=== PATIENT | female | born 1930 | race African-American/Black ===

== ENCOUNTER 2016-09-22 14:11 | Emergency (ER) | payer OTHER ==
[~2016-09-22 14:11] MED LIST: ACET500T68 PO; AMLO5TAB4 PO; ASPI81TA2 PO; DONE10TA34 PO; IPRA3AMP NEB; LOSA100T2 PO; LOVA40TA2 PO; MEMA28CA PO; MULT-658 PO; QUET25TA5 PO
[2016-09-22 14:26] VITALS: BP 127/60
[2016-09-22 15:55] LABS: BASO % 0 % (0-3); EOS % 1 % (0-3); HEMATOCRIT 35.6 % (36.0-47.0); HEMOGLOBIN 11.1 g/dL (12.0-15.5); LYMPH # 2.4 x10^3/uL (1.0-4.8); LYMPH % 25 % (24-48); MEAN CORPUSCULAR HEMOGLOBIN 26 pg (25-35); MEAN CORPUSCULAR HGB CONC 31 g/dL (31-37); MEAN CORPUSCULAR VOLUME 83 fL (79-100); MONO % 7 % (0-9); NEUT % 67 % (31-73); PLATELET COUNT 353 x10^3/uL (140-400); RED BLOOD COUNT 4.29 x10^6/uL (3.50-5.40); RED CELL DISTRIBUTION WIDTH 16.7 % (11.5-14.5); WHITE BLOOD COUNT 9.5 x10^3/uL (4.0-11.0)
[2016-09-22 16:04] LABS: CALCIUM 10.1 mg/dL (8.5-10.1); CREATININE 1.4 mg/dL (0.6-1.0); POTASSIUM 3.5 mmol/L (3.5-5.1)
[2016-09-22 16:10] LABS: ALBUMIN/GLOBULIN RATIO 0.5 (1.0-1.7); TOTAL BILIRUBIN 0.3 mg/dL (0.2-1.0); TOTAL PROTEIN 8.5 g/dL (6.4-8.2)
--- NOTE | 2016-09-22 16:24 | RAD ---
Exam performed: One view chest. Indication: altered mental status and cough for last 4 days Date of Service: 09/22/2016 5:44 PM Comparison: Single view chest as part of acute abdominal series from 10/17/07. Single AP upright portable view chest findings: Cardiomediastinal silhouette is within limits of normal. Bipolar pacemaker. Prominent interstitial markings are seen in both perihilar regions. No acute infiltrates, effusion or pneumothorax is detected. The bony structures are normal. Impression: Stable one view chest No acute cardiopulmonary process is detected.
[2016-09-22 16:29] LABS: BILIRUBIN,URINE SMALL (NEG); GLUCOSE,URINE NEGATIVE (NEG); NITRITE,URINE POSITIVE (NEG); PH,URINE 5.5; PROTEIN,URINE NEGATIVE (NEG-TRACE); UROBILINOGEN,URINE 0.2 mg/dL (0.2 mg/dL)
[2016-09-22] MEDS ORDERED: IV NORMAL SALINE 500ML BAG 500 ML IV ONE (16:30)
[2016-09-22 16:47] LABS: BACTERIA,URINE MANY /HPF (0-FEW); RBC,URINE 0 /HPF (0-2); SQUAMOUS EPITHELIAL CELL,UR MOD /LPF
[2016-09-22] MEDS ORDERED: LEVOFLOXACIN 500 MG TABLET PO ONE (17:15)
--- NOTE | 2016-09-22 17:32 | EKG ---
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
[2016-09-22] MEDS ORDERED: LEVO500T38 PO (17:34)
--- NOTE | 2016-09-22 17:35 | PHYS DOC ---
Past Medical History Past Medical History: Arthritis, Dementia, High Cholesterol, Hypertension Past Surgical History: Hip Replacement, Hysterectomy, Pacemaker Additional Past Surgical Histo: LEFT HIP Alcohol Use: None Drug Use: None Adult General Chief Complaint Chief Complaint: MULTIPLE COMPLAINTS HPI HPI 86-year-old female from a [facility] with a history of dementia presents with a cough and increased agitation. There is not been a report of any fever chills or sweats. She's had no nausea vomiting or diarrhea. By mouth intake has been adequate. Patient is unable to provide any history secondary to dementia. [] Review of Systems Review of Systems Review of systems is unobtainable secondary to patient's dementia Current Medications Current Medications Current Medications Medications (Trade) Dose Ordered Sig/Yue Start Time Stop Time Status Last Admin Dose Admin Levofloxacin (Levaquin) 500 mg 1X ONCE 09/22/16 17:15 09/22/16 17:16 DC Sodium Chloride (Iv Sodium Chloride 0.9% 500ml Bag) 500 ml @ 0 mls/hr 1X ONCE 09/22/16 16:30 09/22/16 16:31 DC 09/22/16 16:34 500 MLS/HR Allergies Allergies Allergies Coded Allergies Type Severity Reaction Last Updated Verified No Known Drug Allergies 05/19/16 No Physical Exam Physical Exam Constitutional: Frail elderly nontoxic. [] HENT: Normocephalic, atraumatic, bilateral external ears normal, oropharynx moist, no oral exudates, nose normal. [] Eyes: PERRLA, EOMI, conjunctiva normal, no discharge. [] Neck: Normal range of motion, no tenderness, supple, no stridor. [] Cardiovascular:Heart rate regular rhythm, no murmur [] Lungs & Thorax: Bilateral breath sounds clear to auscultation [] Abdomen: Bowel sounds normal, soft, no tenderness, no masses, no pulsatile masses. [] Skin: Warm, dry, no erythema, no rash. [] Back: No tenderness, no CVA tenderness. [] Extremities: No tenderness, no cyanosis, no clubbing, ROM intact, no edema. [] Neurologic: Alert but confused, normal motor function, normal sensory function, no focal deficits noted. [] Psychologic: Depressed affect [] Current Patient Data Vital Signs Vital Signs Date Time Temp Pulse Resp B/P Pulse Ox O2 Delivery O2 Flow Rate FiO2 09/22/16 14:26 97.7 15 127/60 98 Room Air 97.7 Lab Values Laboratory Tests Test 09/22/16 14:26 White Blood Count 9.5x10^3/uL (4.0-11.0) Red Blood Count 4.29x10^6/uL (3.50-5.40) Hemoglobin 11.1g/dL (12.0-15.5) L Hematocrit 35.6% (36.0-47.0) L Mean Corpuscular Volume 83fL (79-100) Mean Corpuscular Hemoglobin 26pg (25-35) Mean Corpuscular Hemoglobin Concent 31g/dL (31-37) Red Cell Distribution Width 16.7% (11.5-14.5) H Platelet Count 353x10^3/uL (140-400) Neutrophils (%) (Auto) 67% (31-73) Lymphocytes (%) (Auto) 25% (24-48) Monocytes (%) (Auto) 7% (0-9) Eosinophils (%) (Auto) 1% (0-3) Basophils (%) (Auto) 0% (0-3) Neutrophils # (Auto) 6.4x10^3uL (1.8-7.7) Lymphocytes # (Auto) 2.4x10^3/uL (1.0-4.8) Monocytes # (Auto) 0.7x10^3/uL (0.0-1.1) Eosinophils # (Auto) 0.1x10^3/uL (0.0-0.7) Basophils # (Auto) 0.0x10^3/uL (0.0-0.2) Urine Collection Type U cath Urine Color Dk yellow Urine Clarity Clear Urine pH 5.5 Urine Specific [place] >=1.030 Urine Protein Negativemg/dL (NEG-TRACE) Urine Glucose (UA) Negativemg/dL (NEG) Urine Ketones (Stick) Negativemg/dL (NEG) Urine Blood Negative (NEG) Urine Nitrite Positive (NEG) Urine Bilirubin Small (NEG) Urine Urobilinogen Dipstick 0.2mg/dL (0.2 mg/dL) Urine Leukocyte Esterase Small (NEG) Urine RBC 0/HPF (0-2) Urine WBC 5-10/HPF (0-4) Urine Squamous Epithelial Cells Mod/LPF Urine Transitional Epithelial Cells Occ/LPF Urine Bacteria Many/HPF (0-FEW) Urine Hyaline Casts Few/HPF Urine Mucus Mod/LPF Sodium Level 149mmol/L (136-145) H Potassium Level 3.5mmol/L (3.5-5.1) Chloride Level 109mmol/L (98-107) H Carbon Dioxide Level 30mmol/L (21-32) Anion Gap 10 (6-14) Blood Urea Nitrogen 31mg/dL (7-20) H Creatinine 1.4mg/dL (0.6-1.0) H Estimated GFR (Cockcroft-Gault) 43.0 BUN/Creatinine Ratio 22 (6-20) H Glucose Level 81mg/dL (70-99) Calcium Level 10.1mg/dL (8.5-10.1) Total Bilirubin 0.3mg/dL (0.2-1.0) Aspartate Amino Transferase (AST) 41U/L (15-37) H Alanine Aminotransferase (ALT) 38U/L (14-59) Alkaline Phosphatase 116U/L (46-116) Troponin I Quantitative < 0.017ng/mL (0.000-0.055) Total Protein 8.5g/dL (6.4-8.2) H Albumin 3.0g/dL (3.4-5.0) L Albumin/Globulin Ratio 0.5 (1.0-1.7) L Lipase 200U/L (73-393) Laboratory Tests 09/22/16 14:26 Laboratory Tests 09/22/16 14:26 EKG EKG [] Radiology/Procedures Radiology/Procedures [] Impressions: PROCEDURE: CHEST AP ONLY Exam performed: One view chest. Indication: altered mental status and cough for last 4 days Date of Service: 09/22/2016 5:44 PM Comparison: Single view chest as part of acute abdominal series from 10/17/07. Single AP upright portable view chest findings: Cardiomediastinal silhouette is within limits of normal. Bipolar pacemaker. Prominent interstitial markings are seen in both perihilar regions. No acute infiltrates, effusion or pneumothorax is detected. The bony structures are normal. Impression: Stable one view chest No acute cardiopulmonary process is detected. Course & Med Decision Making Course & Med Decision Making Pertinent Labs and Imaging studies reviewed. (See chart for details) [ED course: Evaluation reveals a frail 86-year-old female who does not appear to be in any distress. Clinically she appeared somewhat dehydrated she was given IV fluids. She was also given antibiotic for urinary tract infection. I did speak with Dr. Hair who agreed to follow her as an outpatient and agreed with discharge back to the [facility].] Dragon Disclaimer Dragon Disclaimer This electronic medical record was generated, in whole or in part, using a voice recognition dictation system. Departure Departure Impression: Primary Impression: Urinary tract infection Disposition: 01 HOME, SELF-CARE Condition: STABLE Referrals: ISA HAIR MD (PCP) Patient Instructions: Urinary Tract Infection Additional Instructions: Thank you for allowing us to participate in your care today. Followup with your primary care physician in 3 days if your symptoms do not improve. Return to the emergency department you have any new or concerning findings. This should be evaluated by the primary care physician and any necessary consulting services for continued management within a few days after discharge. Return to emergency room if you have any new or concerning symptoms including but not limited to fever, chills, nausea, vomiting, intractable pain, any new rashes, chest pain, shortness of air, uncontrolled bleeding, difficulty breathing, and/or vision loss. You may have been prescribed medication that can change in your level of thinking and ability to operate machinery. These medications include hydrocodone and Ativan. Also, Benadryl has been known to do this as well. Be sure to check with your pharmacist and ask if the medications you've prescribed can affect your level of consciousness. I recommend not operating heavy machinery or driving while on medication such as these. Scripts Levofloxacin (Levaquin)500 Mg Tablet1 Tab PO DAILY urinary tract infection #5 TAB Prov:BRISEIDA BARKER DO 09/22/16 Problem Qualifiers Primary Impression: Urinary tract infection Urinary tract infection type: site unspecified Hematuria presence: without hematuria Qualified Code: N39.0 - Urinary tract infection, site not specified BRISEIDA BARKER DO Sep 22, 2016 17:35
== END 2016-09-22 17:42 | disposition home or self-care (01) ==
LOC: ER 14:11
DX: N39.0 Urinary tract infection, site not specified (principal); M19.90 Unspecified osteoarthritis, unspecified site; F03.90 Unspecified dementia, unspecified severity, without behavioral disturbance, psychotic disturbance, mood disturbance, and anxiety; E78.00 Pure hypercholesterolemia, unspecified; I10 Essential (primary) hypertension; Z96.89 Presence of other specified functional implants
CPT/HCPCS: 36415; 71010; 80053; 81001; 83690; 84484; 85027; 87086; 93005; 96360; 99285; J7040

== ENCOUNTER 2016-10-07 13:04 | Inpatient (IN) | payer OTHER ==
[~2016-10-07] VITALS: Ht 167.6 cm; Wt 63.0 kg
[~2016-10-07 13:04] MED LIST changes: +LEVO500T38 PO
--- NOTE | 2016-10-07 13:18 | PHYS DOC ---
Past Medical History Past Medical History: Arthritis, Dementia, High Cholesterol, Hypertension Past Surgical History: Hip Replacement, Hysterectomy, Pacemaker Additional Past Surgical Histo: LEFT HIP Alcohol Use: None Drug Use: None Adult General Chief Complaint Chief Complaint: TREMORS HPI HPI Patient is a 86 year old female who presents with low blood pressure. According to the paramedics she was sitting next to the aid at her facility and she slumped over and the aid could not feel a pulse. They started CPR for approximately 10 minutes. She woke up in EMS transferred her here. She has dementia and at this time is unable to answer any questions or recognize her daughter. According to her daughter she has had these episodes where she passes out while sitting however she usually regains consciousness quickly and she was informed that she was not regaining consciousness and he could not feel a pulse so they started CPR. Review of Systems Review of Systems Constitutional: Denies fever or chills [] Eyes: Denies change in visual acuity, redness, or eye pain [] HENT: Denies nasal congestion or sore throat [] Respiratory: Denies cough or shortness of breath [] Cardiovascular: No additional information not addressed in HPI [] GI: Denies abdominal pain, nausea, vomiting, bloody stools or diarrhea [] : Denies dysuria or hematuria [] Musculoskeletal: Denies back pain or joint pain [] Integument: Denies rash or skin lesions [] Neurologic: Denies headache, focal weakness or sensory changes [] Endocrine: Denies polyuria or polydipsia [] Allergies Allergies Allergies Coded Allergies Type Severity Reaction Last Updated Verified No Known Drug Allergies 05/19/16 No Physical Exam Physical Exam Constitutional: Well developed, well nourished, no acute distress, non-toxic appearance. [] HENT: Normocephalic, atraumatic, bilateral external ears normal, oropharynx moist, no oral exudates, nose normal. [] Eyes: PERRLA, EOMI, conjunctiva normal, no discharge. [] Neck: Normal range of motion, no tenderness, supple, no stridor. [] Cardiovascular:Heart rate regular rhythm, no murmur [] Lungs & Thorax: Bilateral breath sounds clear to auscultation [] Abdomen: Bowel sounds normal, soft, no tenderness, no masses, no pulsatile masses. [] Skin: Warm, dry, no erythema, no rash. [] Back: No tenderness, no CVA tenderness. [] Extremities: No tenderness, no cyanosis, no clubbing, ROM intact, no edema. [] Neurologic: Alert, normal motor function, normal sensory function, no focal deficits Current Patient Data Vital Signs Vital Signs Date Time Temp Pulse Resp B/P Pulse Ox O2 Delivery O2 Flow Rate FiO2 10/07/16 14:10 74 142/67 95 Room Air 10/07/16 13:13 97. 16 97.0 Lab Values Laboratory Tests Test 10/07/16 13:40 White Blood Count 11.8x10^3/uL (4.0-11.0) H Red Blood Count 4.08x10^6/uL (3.50-5.40) Hemoglobin 10.7g/dL (12.0-15.5) L Hematocrit 33.7% (36.0-47.0) L Mean Corpuscular Volume 83fL (79-100) Mean Corpuscular Hemoglobin 26pg (25-35) Mean Corpuscular Hemoglobin Concent 32g/dL (31-37) Red Cell Distribution Width 16.9% (11.5-14.5) H Platelet Count 364x10^3/uL (140-400) Neutrophils (%) (Auto) 88% (31-73) H Lymphocytes (%) (Auto) 9% (24-48) L Monocytes (%) (Auto) 3% (0-9) Eosinophils (%) (Auto) 0% (0-3) Basophils (%) (Auto) 0% (0-3) Neutrophils # (Auto) 10.4x10^3uL (1.8-7.7) H Lymphocytes # (Auto) 1.0x10^3/uL (1.0-4.8) Monocytes # (Auto) 0.4x10^3/uL (0.0-1.1) Eosinophils # (Auto) 0.0x10^3/uL (0.0-0.7) Basophils # (Auto) 0.0x10^3/uL (0.0-0.2) Platelet Estimate Pending Prothrombin Time 14.4SEC (11.7-14.0) H Prothrombin Time INR 1.2 (0.8-1.1) H Troponin I Quantitative 0.031ng/mL (0.000-0.055) Laboratory Tests 10/07/16 13:40 EKG EKG EKG shows normal sinus rhythm at [address] elevations or T-wave inversions, there is artifact throughout all the leads, QTc 503 ms, normal axis , as interpreted by me. Radiology/Procedures Radiology/Procedures [facility] [address] [place] [address] IMAGING REPORT Signed PATIENT: BENNY RIOS ACCOUNT: [id number] : 1930 LOCATION: ER AGE: 86 SEX: F EXAM STATUS: PRE ER ORD. PHYSICIAN: GEOVANNA SAXENA MD REASON: chest pain PROCEDURE: PORTABLE CHEST 1V Portable chest, 10/07/2016: History: Chest pain Comparison is made to a study from 09/22/2016. 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 The patient positioning is kyphotic. The heart is probably within normal limits in size. There is calcific plaquing of the aorta. The pulmonary vascularity is normal. No pulmonary infiltrates are seen. There is no evidence of pleural fluid. IMPRESSION: No acute cardiopulmonary abnormality is detected. DICTATED and SIGNED BY: ALTON RAMON MD DATE: 10/07/16 1330 CC: GEOVANNA SAXENA MD; ISA SCHERER MD ~ Course & Med Decision Making Course & Med Decision Making Pertinent Labs and Imaging studies reviewed. (See chart for details) Labs are pending at this time. Final disposition to Dr. Hopper. Nisreen Disclaimer Nisreen Disclaimer This electronic medical record was generated, in whole or in part, using a voice recognition dictation system. Departure Departure Referrals: ISA SCHERER MD (PCP) GEOVANNA SAXENA MD Oct 07, 2016 13:18
--- NOTE | 2016-10-07 13:34 | RAD ---
Portable chest, 10/07/2016: History: Chest pain Comparison is made to a study from 09/22/2016. 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 The patient positioning is kyphotic. The heart is probably within normal limits in size. There is calcific plaquing of the aorta. The pulmonary vascularity is normal. No pulmonary infiltrates are seen. There is no evidence of pleural fluid. IMPRESSION: No acute cardiopulmonary abnormality is detected.
[2016-10-07 14:06] LABS: INR 1.2 (0.8-1.1); PROTHROMBIN TIME PATIENT 14.4 SEC (11.7-14.0)
[2016-10-07 14:09] LABS: BASO % 0 % (0-3); EOS % 0 % (0-3); HEMATOCRIT 33.7 % (36.0-47.0); HEMOGLOBIN 10.7 g/dL (12.0-15.5); LYMPH % 9 % (24-48); MEAN CORPUSCULAR HEMOGLOBIN 26 pg (25-35); MEAN CORPUSCULAR HGB CONC 32 g/dL (31-37); MEAN CORPUSCULAR VOLUME 83 fL (79-100); MONO % 3 % (0-9); NEUT % 88 % (31-73); PLATELET COUNT 364 x10^3/uL (140-400); RED BLOOD COUNT 4.08 x10^6/uL (3.50-5.40); RED CELL DISTRIBUTION WIDTH 16.9 % (11.5-14.5); WHITE BLOOD COUNT 11.8 x10^3/uL (4.0-11.0)
--- NOTE | 2016-10-07 14:59 | EKG ---
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
[2016-10-07 15:04] LABS: ALBUMIN 2.9 g/dL (3.4-5.0); ALK PHOS 116 U/L (46-116); ALT (SGPT) 49 U/L (14-59); ANION GAP 10 (6-14); AST (SGOT) 69 U/L (15-37); BLOOD UREA NITROGEN 22 mg/dL (7-20); CALCIUM 9.6 mg/dL (8.5-10.1); CARBON DIOXIDE 28 mmol/L (21-32); CHLORIDE 109 mmol/L (98-107); CREATININE 1.1 mg/dL (0.6-1.0); DIRECT BILIRUBIN < 0.1 mg/dL (0.0-0.2); GFR 56.9; GLUCOSE 112 mg/dL (70-99); MAGNESIUM 2.3 mg/dL (1.8-2.4); POTASSIUM 4.1 mmol/L (3.5-5.1); SODIUM 147 mmol/L (136-145); TOTAL BILIRUBIN 0.2 mg/dL (0.2-1.0); TOTAL PROTEIN 6.9 g/dL (6.4-8.2)
[2016-10-07 15:06] LABS: CKMB INDEX 4.9 % (0-4); CKMB MASS 6.8 ng/mL (0.0-3.6)
[2016-10-07 15:11] LABS: BILIRUBIN,URINE NEGATIVE (NEG); GLUCOSE,URINE NEGATIVE (NEG); NITRITE,URINE NEGATIVE (NEG); PH,URINE 5.5; PROTEIN,URINE NEGATIVE (NEG-TRACE); UROBILINOGEN,URINE 0.2 mg/dL (0.2 mg/dL)
[2016-10-07 15:21] LABS: RBC,URINE OCC /HPF (0-2)
[2016-10-07 15:23] LABS: BACTERIA,URINE 0 /HPF (0-FEW); SQUAMOUS EPITHELIAL CELL,UR FEW /LPF; YEAST,URINE PRESENT /HPF
[2016-10-07 15:50] LABS: PLT ESTIMATE ADEQUATE (ADEQUATE); TOXIC GRANULATION SLIGHT
[2016-10-07 15:51] LABS: TOXIC VACUOLATION SLIGHT
[2016-10-07] MEDS ORDERED: ONDANSETRON PF 4 MG/2 ML VIAL. IV PRN (16:45)
[2016-10-07] MEDS ORDERED: ACETAMINOPHEN 325 MG TABLET. PO PRN ×2 (16:45→18:00)
[2016-10-07] MEDS: IV NORMAL SALINE 1000ML BAG 1,000 ML IV SCH ×2 (16:47→20:00)
[2016-10-07] MEDS ORDERED: CEFTRIAXONE 1GM IVPB FOR OMNI 50 ML IV ONE (17:30)
--- NOTE | 2016-10-07 17:45 | RAD ---
PROCEDURE CT abdomen and pelvis without intravenous contrast. HISTORY Pancreatitis. Pelvic fractures. TECHNIQUE Helical CT of the abdomen and pelvis was performed without intravenous or oral contrast. Exposure: One or more of the following individualized dose reduction techniques were utilized for this examination: 1. Automated exposure control. 2. Adjustment of the mA and/or kV according to patient size. 3. Use of iterative reconstruction technique. COMPARISON None. FINDINGS Evaluation of solid organs is limited by lack of intravenous contrast. Evaluation of enteric structures may be limited by lack of oral contrast. Patient's arms are on her abdomen, creating streak artifact which also mildly limits evaluation. Evaluation of lower pelvis is limited secondary to streak artifact emanating from patient's right total hip arthroplasty. Images of lower chest demonstrate mucous impaction of multiple left lower lobe bronchi. Portions of pacemaker are seen. Liver, spleen, pancreas, and bilateral adrenal glands are unremarkable. Gallbladder is unremarkable. Bilateral kidneys are without evidence of stone. Visualized ureters are without evidence of stone or obstruction. No bowel obstruction or inflammation is seen. Appendix is without evidence of inflammation. Colonic diverticulosis is noted, but no diverticulitis is appreciated. No free air or free fluid is in the abdomen or pelvis. Kaufman catheter is present in urinary bladder. No acute pelvic fractures are appreciated. IMPRESSION 1. No acute abnormality identified in the abdomen or pelvis. 2. Left lower lobe bronchi demonstrate mucous impaction. Electronically signed by: Dorian Dao MD (Oct 07, 2016 17:44:06)
[2016-10-07] MEDS ORDERED: IPRATRPIUM/ALBUTEROL 0.5/2.5MG 3 ML NEBU. NEB PRN (18:00)
[2016-10-07] MEDS ORDERED: MAGNESIUM HYDROXIDE 2,400 MG/30 ML ORAL.SUSP. PO PRN (18:00)
--- NOTE | 2016-10-07 18:12 | PDOC ---
Provider Note Provider Note history and physical dictated # [id number] ISA SCHERER MD Oct 07, 2016 18:12
[2016-10-07 19:00] VITALS: BP 137/76
--- NOTE | 2016-10-07 20:13 | HP ---
ADMIT DATE: 10/07/2016 HISTORY OF PRESENT ILLNESS: The patient is an 86-year-old -[place] female resident of a shelter with history of hypertension, hyperlipidemia, Alzheimer disease who was admitted to [facility] by paramedics to the Emergency Room on 10/07/2016 with a syncopal episode. The patient apparently was sitting and just finished lunch, and she had a syncopal episode and collapsed. Apparently a shelter employee noted she had no pulse and the patient was started on CPR which she had for about 10 minutes and eventually came to. The paramedics came and she was sent to the [facility] Emergency Room. She was hemodynamically stable. She cannot give any type of history at all due to her advanced Alzheimer disease. Electrocardiogram showed no acute change. She was noted to have an elevated serum sodium level of 147, elevated lipase level of 575, and her TSH level was increased at 8.8. Her troponin level was 0.03. CPK was 139; however, CPK-MB was increased at 6.8. Chest x-ray was unremarkable, and she was admitted to the hospital for further evaluation of her syncope. She also had pyuria and received a dose of IV Rocephin in the Emergency Room. I spoke with the family at bedside including her daughter who is a DPOA wishes the patient to be a do not resuscitate. ALLERGIES AND INTOLERANCES: None. MEDICATIONS: Prior to admission include amlodipine 5 mg every day, losartan 100 mg every day, aspirin 81 mg every day, multiple vitamin every day, Aricept 10 mg every day, Namenda XR 28 mg every day, DuoNeb nebulized treatments q.i.d. p.r.n. She is on lovastatin 40 mg everyday. PAST MEDICAL HISTORY: Significant for hypertension, hyperlipidemia, Alzheimer disease. She had an episode of near syncope in March 2016, has chronic kidney disease stage III. She also has Alzheimer disease. She had a right total hip arthroplasty, benign colon polypectomy in 2002, cardiac pacemaker in 2005, right axillary cyst excised in 2008, had a total abdominal hysterectomy and bilateral salpingo-oophorectomy. She has osteoarthritis and diverticulosis. SOCIAL HISTORY: She resides in a shelter. Does not drink alcohol nor does she smoke cigarettes. FAMILY HISTORY: Not contributory. REVIEW OF SYSTEMS: Unobtainable due to her Alzheimer's disease. PHYSICAL EXAMINATION: VITAL SIGNS: Temperature is 97 degrees, apical pulse is 74 and regular, blood pressure 142/67, oxygen saturation 95% on room air. HEENT: Eyes: Gaze is conjugate. Mouth is symmetrical. NECK: No cervical lymphadenopathy or thyroid enlargement. HEART: Reveals an S1, S2. There is no S3 or murmur. LUNGS: Few scattered rhonchi. ABDOMEN: Anteriorly abdomen is soft, nontender, not distended. There is no hepatosplenomegaly or masses. GENITOURINARY: She had a Kaufman catheter with yellow urine. LOWER EXTREMITIES: Without edema. SKIN: No rashes. NEUROLOGIC: She says yes to all questions answered, there was no facial asymmetry. She is able to move her arms. SKIN: No rashes. LABORATORY DATA: Sodium 147, potassium 4.1, chloride 109, total CO2 28, BUN 22, creatinine 1.1, blood sugar 112. Liver function tests normal. The TSH levels increased to 8.8, albumin 2.9, lipase was 575. CPK was 139. Troponin level was 0.031. INR was 1.2. White count 11.8, hemoglobin 10.7, platelet count 369,000, 82 polys, and 1 band on the white cell differential. Urinalysis showed 11-20 white cells and occasional red blood cell. Electrocardiogram showed normal sinus rhythm with baseline artifact, but no acute change. She did have a chest x-ray done which showed no acute abnormality. Pulmonary vascularity was normal. She does have a pacemaker noted with two leads extending into the right heart. In addition, she just had a CAT scan of the abdomen and pelvis without contrast and there was no acute abnormality. Left lower lobe bronchus demonstrated mucus impaction. She had a right total hip arthroplasty that was seen, portions of her pacemaker was seen, ureters were unremarkable. Appendix was without inflammation. She had colonic diverticulosis and gallbladder was unremarkable. She was noted to have mucus impaction and multiple left lower lobe bronchi. There is no mention of acute pancreatitis on the CAT scan. IMPRESSION: 1. Syncopal episode. 2. Hypernatremia. 3. Pyuria. 4. Mucus impaction of the left lower lobe bronchi. 5. Hypertension. 6. Hyperlipidemia. 7. Alzheimer disease. 8. Hyperlipidemia. 9. Chronic kidney disease stage III. 10. Elevated lipase. PLAN: At this time put on a clear liquid diet and start her on some IV hypotonic fluids. We will continue with IV Rocephin that she received in the Emergency Room, wait for the urine culture results. Consult Dr. Hines for cardiology and obtain an echocardiogram. SCDs for Deep vein thrombosis prophylaxis. Continue with her amlodipine and losartan for the hypertension, but hold if systolic blood pressure is less than 110. Instead of lovastatin we will order atorvastatin, which is on formulary for hyperlipidemia. Continue the Namenda and Aricept for her Alzheimer's disease. Wait for the urine culture results. Repeat a CBC and BMP tomorrow, and put her on a clear liquid diet. Repeat amylase and lipase also tomorrow and if that improves, we can advance her diet. She is a do not resuscitate and this was discussed with the patient's daughter who is a DPOA at bedside. ISA SCHERER MD DR: ORVILLE/jason JOB#: [id number] / [id number]
[2016-10-07] MEDS: ATORVASTATIN CALCIUM 10 MG TABLET. PO SCH (21:48)
[2016-10-07] MEDS: MEMANTINE 10 MG TABLET. PO SCH (21:49)
[2016-10-07] MEDS: IV DEXTROSE 5% 1,000 ML IV SCH (21:56)
[2016-10-07 23:00] VITALS: BP 135/68
[2016-10-08] VITALS (7 sets, daily range): BP systolic 75–152; BP diastolic 36–86
--- NOTE | 2016-10-08 04:44 | ACF ---
Admission Forms Criteria SYNCOPE Clinical Indications for Admission to Inpatient Care ( Place 'X' for any and all applicable criteria): Admission is indicated for syncope and ANY ONE of the following (1)(2)(3)(4)(5) (6)(7) : [X]I. Inpatient admission required rather than observation care (Also use Syncope: Observation Care Criteria as appropriate) because of ANY ONE of the following: [ ]a) Hemodynamic instability that is severe or persistent [ ]b) Cardiac arrhythmias of immediate concern identified or strongly suspected (eg, needs electrophysiologic study) [X]c) Acute coronary syndrome identified (Also use Myocardial Infarction or Angina Criteria form ) [ ]d) Structural cardiac disorder (eg, aortic stenosis) suspected as cause that requires immediate correction [ ]e) Respiratory symptoms (eg, dyspnea, tachypnea) that are severe or persistent [ ]f) Neurologic signs or symptoms that are severe or persistent ( eg, stroke, seizures, altered mental status) [ ]g) Severe electrolyte abnormalities requiring inpatient care [ ]h) Supplemental oxygen or respiratory treatment for over 24 hrs that are performable only in acute inpatient setting [ ]i) IV fluid to replace significant ongoing (eg, for over 24 hrs ) losses (>3 L/m2 per day) [ ]j) Continuous intravenous infusion of anticoagulation, platelet inhibitor, vasoactive, or antiarrhythmic medication(15)(16) [ ]k) Pulmonary artery catheter monitoring [ ]l) Temporary pacemaker placement(17) [ ]m) Emergent cardioversion(18) [ ]n) Other conditions, treatment or monitoring requiring inpatient admission [ ]II. Suspicion of imminently dangerous cause (eg, rare causes like pericardial tamponade, pulmonary embolism) [ ]III. Syncope causing severe injury requiring hospitalization Extended stay beyond goal length of stay may be needed for(28) [ ]a) Dangerous arrhythmia(15)(23)(27)(29) [ ]b) Myocardial ischemia [ ]c) Seizure disorder [ ]d) Syncope-related injuries The original [employer] content created by [employer] has been revised. The portions of the content which have been revised are identified through the use of italic text or in bold, and [employer] has neither reviewed nor approved the modified material. All other unmodified content is copyright [employer]. Please see references footnoted in the original [facility] edition 2016 Admission Criteria Met?: Yes SALVATORE GUILLERMO Oct 08, 2016 04:44
[2016-10-08 04:52] LABS: BASO % 0 % (0-3); EOS % 0 % (0-3); HEMATOCRIT 33.9 % (36.0-47.0); HEMOGLOBIN 10.6 g/dL (12.0-15.5); LYMPH # 0.7 x10^3/uL (1.0-4.8); LYMPH % 7 % (24-48); MEAN CORPUSCULAR HEMOGLOBIN 26 pg (25-35); MEAN CORPUSCULAR HGB CONC 31 g/dL (31-37); MEAN CORPUSCULAR VOLUME 82 fL (79-100); MONO % 5 % (0-9); NEUT % 88 % (31-73); PLATELET COUNT 350 x10^3/uL (140-400); RED BLOOD COUNT 4.15 x10^6/uL (3.50-5.40); RED CELL DISTRIBUTION WIDTH 17.1 % (11.5-14.5); WHITE BLOOD COUNT 11.1 x10^3/uL (4.0-11.0)
[2016-10-08 05:04] LABS: CALCIUM 9.7 mg/dL (8.5-10.1); GFR 63.5; POTASSIUM 4.3 mmol/L (3.5-5.1)
[2016-10-08 05:05] LABS: CHOLESTEROL/HDL RATIO 1.9
[2016-10-08] MEDS: LEVOTHYROXINE 75 MCG TABLET PO SCH (07:00)
[2016-10-08] MEDS: IV NORMAL SALINE 1000ML BAG 1,000 ML IV SCH (08:32)
--- NOTE | 2016-10-08 08:36 | RAD ---
CT of the chest without contrast, 10/07/2016: History: Mucous plugging Noncontrast scans were obtained as requested. There is calcific plaquing of the thoracic aorta without evidence of aneurysm. Transvenous pacing leads extend into the heart. No mediastinal adenopathy is evident. The upper and mid esophagus are mildly distended with fluid and gas. The left lower lobe bronchus is largely opacified. Multiple left lower lobe bronchi appear to be mildly dilated, thick-walled and poorly aerated. There are minimal reticulonodular and groundglass opacities in the left lower lobe posteriorly. The left upper lobe and right lung show no significant infiltrate or mass. There is mild pleural thickening along the inferior aspect of the right oblique fissure. No significant pleural fluid is evident. There is a mild thoracic scoliosis with moderate scattered degenerative changes in the spine. IMPRESSION: 1. Abnormal material in the left lower lobe bronchus probably due to inflammatory debris, although a neoplastic etiology cannot be excluded. There is associated bronchiectasis and apparent mucus plugging in the left lower lobe. Chronic infection or allergic aspergillosis are possibilities. 2. 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 PQRS Compliance Statement: One or more of the following individualized dose reduction techniques were utilized for this examination: 1. Automated exposure control 2. Adjustment of the mA and/or kV according to patient size 3. Use of iterative reconstruction technique
[2016-10-08] MEDS: MEMANTINE 10 MG TABLET. PO SCH ×2 (09:00→21:00)
[2016-10-08] MEDS: LOSARTAN POTASSIUM 50 MG TABLET. PO SCH (09:00)
[2016-10-08] MEDS ORDERED: AMLODIPINE BESYLATE 5 MG TABLET PO SCH (09:00)
[2016-10-08] MEDS: ASPIRIN 81 MG TAB.CHEW PO SCH (09:00)
[2016-10-08] MEDS: MULTIVITAMIN with MINERAL TABLET. PO SCH (09:00)
[2016-10-08] MEDS: DONEPEZIL HCL 10 MG TABLET. PO SCH (09:00)
--- NOTE | 2016-10-08 11:10 | PDOC ---
PULMONARY PROGRESS NOTES Vitals Vital Signs Date Time Temp Pulse Resp B/P Pulse Ox O2 Delivery O2 Flow Rate FiO2 10/08/16 08:50 98.2 68 22 152/47 95 Nasal Cannula 2.0 98.2 Labs Laboratory Tests Test 10/07/16 13:40 10/07/16 14:55 10/07/16 19:25 10/07/16 22:35 White Blood Count 11.8x10^3/uL (4.0-11.0) Red Blood Count 4.08x10^6/uL (3.50-5.40) Hemoglobin 10.7g/dL (12.0-15.5) Hematocrit 33.7% (36.0-47.0) Mean Corpuscular Volume 83fL (79-100) Mean Corpuscular Hemoglobin 26pg (25-35) Mean Corpuscular Hemoglobin Concent 32g/dL (31-37) Red Cell Distribution Width 16.9% (11.5-14.5) Platelet Count 364x10^3/uL (140-400) Neutrophils (%) (Auto) 88% (31-73) Lymphocytes (%) (Auto) 9% (24-48) Monocytes (%) (Auto) 3% (0-9) Eosinophils (%) (Auto) 0% (0-3) Basophils (%) (Auto) 0% (0-3) Neutrophils # (Auto) 10.4x10^3uL (1.8-7.7) Lymphocytes # (Auto) 1.0x10^3/uL (1.0-4.8) Monocytes # (Auto) 0.4x10^3/uL (0.0-1.1) Eosinophils # (Auto) 0.0x10^3/uL (0.0-0.7) Basophils # (Auto) 0.0x10^3/uL (0.0-0.2) Segmented Neutrophils % 82% (35-66) Band Neutrophils % 1% (0-9) Lymphocytes % 13% (24-48) Monocytes % 4% (0-10) Toxic Granulation Slight Toxic Vacuolation Slight Platelet Estimate Adequate (ADEQUATE) Prothrombin Time 14.4SEC (11.7-14.0) Prothromb Time International Ratio 1.2 (0.8-1.1) Sodium Level 147mmol/L (136-145) Potassium Level 4.1mmol/L (3.5-5.1) Chloride Level 109mmol/L (98-107) Carbon Dioxide Level 28mmol/L (21-32) Anion Gap 10 (6-14) Blood Urea Nitrogen 22mg/dL (7-20) Creatinine 1.1mg/dL (0.6-1.0) Estimated GFR (Cockcroft-Gault) 56.9 Glucose Level 112mg/dL (70-99) Calcium Level 9.6mg/dL (8.5-10.1) Magnesium Level 2.3mg/dL (1.8-2.4) Total Bilirubin 0.2mg/dL (0.2-1.0) Direct Bilirubin < 0.1mg/dL (0.0-0.2) Aspartate Amino Transf (AST/SGOT) 69U/L (15-37) Alanine Aminotransferase (ALT/SGPT) 49U/L (14-59) Alkaline Phosphatase 116U/L (46-116) Creatine Kinase 139U/L (26-192) Creatine Kinase MB (Mass) 6.8ng/mL (0.0-3.6) Creatine Kinase MB Relative Index 4.9% (0-4) Troponin I Quantitative 0.031ng/mL (0.000-0.055) 0.035ng/mL (0.000-0.055) NR-Cws-K-Type Natriuretic Peptide 52pg/mL (0-449) Total Protein 6.9g/dL (6.4-8.2) Albumin 2.9g/dL (3.4-5.0) Lipase 575U/L (73-393) Thyroid Stimulating Hormone (TSH) 8.885uIU/mL (0.358-3.74) Urine Collection Type U cath Urine Color Yellow Urine Clarity Clear Urine pH 5.5 Urine Specific [place] 1.015 Urine Protein Negativemg/dL (NEG-TRACE) Urine Glucose (UA) Negativemg/dL (NEG) Urine Ketones (Stick) Negativemg/dL (NEG) Urine Blood Small (NEG) Urine Nitrite Negative (NEG) Urine Bilirubin Negative (NEG) Urine Urobilinogen Dipstick 0.2mg/dL (0.2 mg/dL) Urine Leukocyte Esterase Large (NEG) Urine RBC Occ/HPF (0-2) Urine WBC 11-20/HPF (0-4) Urine Squamous Epithelial Cells Few/LPF Urine Transitional Epithelial Cells Occ/LPF Urine Bacteria 0/HPF (0-FEW) Urine Hyaline Casts Occasional/HPF Urine Mucus Mod/LPF Urine Yeast Present/HPF D-Dimer (Karen) 0.46ug/mlFEU (0.00-0.50) Test 10/08/16 04:30 10/08/16 05:51 White Blood Count 11.1x10^3/uL (4.0-11.0) Red Blood Count 4.15x10^6/uL (3.50-5.40) Hemoglobin 10.6g/dL (12.0-15.5) Hematocrit 33.9% (36.0-47.0) Mean Corpuscular Volume 82fL (79-100) Mean Corpuscular Hemoglobin 26pg (25-35) Mean Corpuscular Hemoglobin Concent 31g/dL (31-37) Red Cell Distribution Width 17.1% (11.5-14.5) Platelet Count 350x10^3/uL (140-400) Neutrophils (%) (Auto) 88% (31-73) Lymphocytes (%) (Auto) 7% (24-48) Monocytes (%) (Auto) 5% (0-9) Eosinophils (%) (Auto) 0% (0-3) Basophils (%) (Auto) 0% (0-3) Neutrophils # (Auto) 9.7x10^3uL (1.8-7.7) Lymphocytes # (Auto) 0.7x10^3/uL (1.0-4.8) Monocytes # (Auto) 0.6x10^3/uL (0.0-1.1) Eosinophils # (Auto) 0.0x10^3/uL (0.0-0.7) Basophils # (Auto) 0.0x10^3/uL (0.0-0.2) Sodium Level 149mmol/L (136-145) Potassium Level 4.3mmol/L (3.5-5.1) Chloride Level 111mmol/L (98-107) Carbon Dioxide Level 26mmol/L (21-32) Anion Gap 12 (6-14) Blood Urea Nitrogen 21mg/dL (7-20) Creatinine 1.0mg/dL (0.6-1.0) Estimated GFR (Cockcroft-Gault) 63.5 Glucose Level 68mg/dL (70-99) Calcium Level 9.7mg/dL (8.5-10.1) Troponin I Quantitative 0.028ng/mL (0.000-0.055) Triglycerides Level 54mg/dL (0-150) Cholesterol Level 158mg/dL (0-200) LDL Cholesterol, Calculated 64mg/dL (0-100) VLDL Cholesterol, Calculated 11mg/dL (0-40) HDL Cholesterol 83mg/dL (40-60) Cholesterol/HDL Ratio 1.9 Amylase Level 111U/L (25-115) Lipase 675U/L (73-393) Glucose (Fingerstick) 70mg/dL (70-99) Laboratory Tests Test 10/07/16 13:40 10/07/16 14:55 10/07/16 19:25 10/07/16 22:35 White Blood Count 11.8x10^3/uL (4.0-11.0) Red Blood Count 4.08x10^6/uL (3.50-5.40) Hemoglobin 10.7g/dL (12.0-15.5) Hematocrit 33.7% (36.0-47.0) Mean Corpuscular Volume 83fL (79-100) Mean Corpuscular Hemoglobin 26pg (25-35) Mean Corpuscular Hemoglobin Concent 32g/dL (31-37) Red Cell Distribution Width 16.9% (11.5-14.5) Platelet Count 364x10^3/uL (140-400) Neutrophils (%) (Auto) 88% (31-73) Lymphocytes (%) (Auto) 9% (24-48) Monocytes (%) (Auto) 3% (0-9) Eosinophils (%) (Auto) 0% (0-3) Basophils (%) (Auto) 0% (0-3) Neutrophils # (Auto) 10.4x10^3uL (1.8-7.7) Lymphocytes # (Auto) 1.0x10^3/uL (1.0-4.8) Monocytes # (Auto) 0.4x10^3/uL (0.0-1.1) Eosinophils # (Auto) 0.0x10^3/uL (0.0-0.7) Basophils # (Auto) 0.0x10^3/uL (0.0-0.2) Segmented Neutrophils % 82% (35-66) Band Neutrophils % 1% (0-9) Lymphocytes % 13% (24-48) Monocytes % 4% (0-10) Toxic Granulation Slight Toxic Vacuolation Slight Platelet Estimate Adequate (ADEQUATE) Prothrombin Time 14.4SEC (11.7-14.0) Prothromb Time International Ratio 1.2 (0.8-1.1) Sodium Level 147mmol/L (136-145) Potassium Level 4.1mmol/L (3.5-5.1) Chloride Level 109mmol/L (98-107) Carbon Dioxide Level 28mmol/L (21-32) Anion Gap 10 (6-14) Blood Urea Nitrogen 22mg/dL (7-20) Creatinine 1.1mg/dL (0.6-1.0) Estimated GFR (Cockcroft-Gault) 56.9 Glucose Level 112mg/dL (70-99) Calcium Level 9.6mg/dL (8.5-10.1) Magnesium Level 2.3mg/dL (1.8-2.4) Total Bilirubin 0.2mg/dL (0.2-1.0) Direct Bilirubin < 0.1mg/dL (0.0-0.2) Aspartate Amino Transf (AST/SGOT) 69U/L (15-37) Alanine Aminotransferase (ALT/SGPT) 49U/L (14-59) Alkaline Phosphatase 116U/L (46-116) Creatine Kinase 139U/L (26-192) Creatine Kinase MB (Mass) 6.8ng/mL (0.0-3.6) Creatine Kinase MB Relative Index 4.9% (0-4) Troponin I Quantitative 0.031ng/mL (0.000-0.055) 0.035ng/mL (0.000-0.055) OM-Wvk-D-Type Natriuretic Peptide 52pg/mL (0-449) Total Protein 6.9g/dL (6.4-8.2) Albumin 2.9g/dL (3.4-5.0) Lipase 575U/L (73-393) Thyroid Stimulating Hormone (TSH) 8.885uIU/mL (0.358-3.74) Urine Collection Type U cath Urine Color Yellow Urine Clarity Clear Urine pH 5.5 Urine Specific [place] 1.015 Urine Protein Negativemg/dL (NEG-TRACE) Urine Glucose (UA) Negativemg/dL (NEG) Urine Ketones (Stick) Negativemg/dL (NEG) Urine Blood Small (NEG) Urine Nitrite Negative (NEG) Urine Bilirubin Negative (NEG) Urine Urobilinogen Dipstick 0.2mg/dL (0.2 mg/dL) Urine Leukocyte Esterase Large (NEG) Urine RBC Occ/HPF (0-2) Urine WBC 11-20/HPF (0-4) Urine Squamous Epithelial Cells Few/LPF Urine Transitional Epithelial Cells Occ/LPF Urine Bacteria 0/HPF (0-FEW) Urine Hyaline Casts Occasional/HPF Urine Mucus Mod/LPF Urine Yeast Present/HPF D-Dimer (Karen) 0.46ug/mlFEU (0.00-0.50) Test 10/08/16 04:30 10/08/16 05:51 White Blood Count 11.1x10^3/uL (4.0-11.0) Red Blood Count 4.15x10^6/uL (3.50-5.40) Hemoglobin 10.6g/dL (12.0-15.5) Hematocrit 33.9% (36.0-47.0) Mean Corpuscular Volume 82fL (79-100) Mean Corpuscular Hemoglobin 26pg (25-35) Mean Corpuscular Hemoglobin Concent 31g/dL (31-37) Red Cell Distribution Width 17.1% (11.5-14.5) Platelet Count 350x10^3/uL (140-400) Neutrophils (%) (Auto) 88% (31-73) Lymphocytes (%) (Auto) 7% (24-48) Monocytes (%) (Auto) 5% (0-9) Eosinophils (%) (Auto) 0% (0-3) Basophils (%) (Auto) 0% (0-3) Neutrophils # (Auto) 9.7x10^3uL (1.8-7.7) Lymphocytes # (Auto) 0.7x10^3/uL (1.0-4.8) Monocytes # (Auto) 0.6x10^3/uL (0.0-1.1) Eosinophils # (Auto) 0.0x10^3/uL (0.0-0.7) Basophils # (Auto) 0.0x10^3/uL (0.0-0.2) Sodium Level 149mmol/L (136-145) Potassium Level 4.3mmol/L (3.5-5.1) Chloride Level 111mmol/L (98-107) Carbon Dioxide Level 26mmol/L (21-32) Anion Gap 12 (6-14) Blood Urea Nitrogen 21mg/dL (7-20) Creatinine 1.0mg/dL (0.6-1.0) Estimated GFR (Cockcroft-Gault) 63.5 Glucose Level 68mg/dL (70-99) Calcium Level 9.7mg/dL (8.5-10.1) Troponin I Quantitative 0.028ng/mL (0.000-0.055) Triglycerides Level 54mg/dL (0-150) Cholesterol Level 158mg/dL (0-200) LDL Cholesterol, Calculated 64mg/dL (0-100) VLDL Cholesterol, Calculated 11mg/dL (0-40) HDL Cholesterol 83mg/dL (40-60) Cholesterol/HDL Ratio 1.9 Amylase Level 111U/L (25-115) Lipase 675U/L (73-393) Glucose (Fingerstick) 70mg/dL (70-99) Medications Active Scripts Medications Dose Route/Sig Days Date Category Levaquin (Levofloxacin) 500 Mg Tablet 1 Tab PO DAILY 09/22/16 Rx Aricept (Donepezil Hcl) 10 Mg Tablet 1 Tab PO QHS 05/19/16 Reported Cozaar (Losartan Potassium) 100 Mg Tablet 100 Mg PO DAILY 05/19/16 Reported Namenda Xr (Memantine Hcl) 28 Mg Cap.spr.24 28 Mg PO DAILY 05/19/16 Reported Norvasc (Amlodipine Besylate) 5 Mg Tablet 1 Tab PO DAILY 05/19/16 Reported Lovastatin 40 Mg Tablet 1 Tab PO DAILY 05/19/16 Reported Acetaminophen 500 Mg Tablet 1 Tab PO QID 05/19/16 Reported Duoneb 0.5-3(2.5) Mg/3 Ml (Albuterol/Ipratropium) 3 Ml Ampul.neb 3 Ml NEB QID 05/19/16 Reported Seroquel (Quetiapine Fumarate) 25 Mg Tablet 1 Tab PO QHS PRN 05/19/16 Reported Aspirin 81 Mg Tab.chew 1 Tab PO DAILY 05/19/16 Reported Centrum Silver Tablet (Multivits-Min/Fa/Lycopene/Lut) 1 Each Tablet 1 Each PO DAILY 05/19/16 Reported Impression . #[id number] full note dictated suspect Aspiration Pneumonia, mucus plugging, see my report Plan . GINA NETTLES MD Oct 08, 2016 11:10
--- NOTE | 2016-10-08 12:05 | PDOC ---
Provider Note Provider Note Patient seen and consult dictated. Several episodes of near syncope always when seated for prolonged periods of time. No Orthostasis was noted here but the blood pressure was checked probably within 2 minutes. Pacemaker was interrogated. She has had several episodes of paroxysmal atrial fibrillation/tachycardia Her highest rate has been 160 bpm. The longest duration was 7 minutes. Last episode was september. No arrhythmia was noted yesterday. Echocardiogram has not yet been done. Will discuss with Dr. Hair after seeing the echo. Thank you Dr. Hair for asking me to see her. LINNEA HUNT MD Oct 08, 2016 12:05
[2016-10-08] MEDS ORDERED: ALBUTEROL SULFATE 2.5 MG/3 ML NEBU. NEB PRN (13:15)
[2016-10-08] MEDS: VANCOMYCIN PER PHARMACY MC PRN (13:20)
--- NOTE | 2016-10-08 13:22 | PDOC ---
PROGRESS NOTES Subjective Subjective drowsy but says her name. discussed with family. cough with yellow sputum ct chest with LLL bronchial opacified. afebrile. not eating. blood sugar 80 lab reviewed. Objective Objective Vital Signs Date Time Temp Pulse Resp B/P Pulse Ox O2 Delivery O2 Flow Rate FiO2 10/08/16 11:00 97.5 94 14 119/54 97 Room Air 97.5 10/08/16 08:50 2.0 Intake and Output 10/08/16 07:00 Intake Total 50 ml Output Total 200 ml Balance -150 ml Intake IV Total 50 ml Output Urine Total 200 ml # Voids 1 Physical Exam Abdomen: Soft, No tenderness Heart: Regular rate, Normal S1, Normal S2 Extremities: No edema, Other (no pedal pulses) General: Alert HEENT: Atraumatic Lungs: Other ( breath sounds anteriorly) Neuro: Other (drowsy) Skin: No rashes, Other (left lateral ankle ulcer tender with scab) Assessment Assessment Problems Medical Problems:1. Syncopal episode. 2. Hypernatremia. 3. Pyuria. 4. opacification of the left lower lobe bronchi.possible pneumonia 6. Hyperlipidemia. 7. Alzheimer disease. 8. Hyperlipidemia. 9. Chronic kidney disease stage III. 10. Elevated lipase.amylase normal. PAD left ankle ulcer metabolic encephalopathy mild protein calorie malnutrition subclinical hypothyroidism (1) Syncope Status: Acute Plan Plan of Care consult ID consult wound care team consult GI arterial doppler legs ct head without contrast sputum culture duoneb nebulizer rx start iv vancomycin and zosyn d/c rocephin increase iv D5W start levothyroxine Comment Review of Relevant I have reviewed the following items kamar (where applicable) has been applied. Labs Laboratory Tests Test 10/07/16 13:40 10/07/16 14:55 10/07/16 19:25 10/07/16 22:35 White Blood Count 11.8x10^3/uL (4.0-11.0) Red Blood Count 4.08x10^6/uL (3.50-5.40) Hemoglobin 10.7g/dL (12.0-15.5) Hematocrit 33.7% (36.0-47.0) Mean Corpuscular Volume 83fL (79-100) Mean Corpuscular Hemoglobin 26pg (25-35) Mean Corpuscular Hemoglobin Concent 32g/dL (31-37) Red Cell Distribution Width 16.9% (11.5-14.5) Platelet Count 364x10^3/uL (140-400) Neutrophils (%) (Auto) 88% (31-73) Lymphocytes (%) (Auto) 9% (24-48) Monocytes (%) (Auto) 3% (0-9) Eosinophils (%) (Auto) 0% (0-3) Basophils (%) (Auto) 0% (0-3) Neutrophils # (Auto) 10.4x10^3uL (1.8-7.7) Lymphocytes # (Auto) 1.0x10^3/uL (1.0-4.8) Monocytes # (Auto) 0.4x10^3/uL (0.0-1.1) Eosinophils # (Auto) 0.0x10^3/uL (0.0-0.7) Basophils # (Auto) 0.0x10^3/uL (0.0-0.2) Segmented Neutrophils % 82% (35-66) Band Neutrophils % 1% (0-9) Lymphocytes % 13% (24-48) Monocytes % 4% (0-10) Toxic Granulation Slight Toxic Vacuolation Slight Platelet Estimate Adequate (ADEQUATE) Prothrombin Time 14.4SEC (11.7-14.0) Prothromb Time International Ratio 1.2 (0.8-1.1) Sodium Level 147mmol/L (136-145) Potassium Level 4.1mmol/L (3.5-5.1) Chloride Level 109mmol/L (98-107) Carbon Dioxide Level 28mmol/L (21-32) Anion Gap 10 (6-14) Blood Urea Nitrogen 22mg/dL (7-20) Creatinine 1.1mg/dL (0.6-1.0) Estimated GFR (Cockcroft-Gault) 56.9 Glucose Level 112mg/dL (70-99) Calcium Level 9.6mg/dL (8.5-10.1) Magnesium Level 2.3mg/dL (1.8-2.4) Total Bilirubin 0.2mg/dL (0.2-1.0) Direct Bilirubin < 0.1mg/dL (0.0-0.2) Aspartate Amino Transf (AST/SGOT) 69U/L (15-37) Alanine Aminotransferase (ALT/SGPT) 49U/L (14-59) Alkaline Phosphatase 116U/L (46-116) Creatine Kinase 139U/L (26-192) Creatine Kinase MB (Mass) 6.8ng/mL (0.0-3.6) Creatine Kinase MB Relative Index 4.9% (0-4) Troponin I Quantitative 0.031ng/mL (0.000-0.055) 0.035ng/mL (0.000-0.055) IL-Dfu-X-Type Natriuretic Peptide 52pg/mL (0-449) Total Protein 6.9g/dL (6.4-8.2) Albumin 2.9g/dL (3.4-5.0) Lipase 575U/L (73-393) Thyroid Stimulating Hormone (TSH) 8.885uIU/mL (0.358-3.74) Urine Collection Type U cath Urine Color Yellow Urine Clarity Clear Urine pH 5.5 Urine Specific [place]worth 1.015 Urine Protein Negativemg/dL (NEG-TRACE) Urine Glucose (UA) Negativemg/dL (NEG) Urine Ketones (Stick) Negativemg/dL (NEG) Urine Blood Small (NEG) Urine Nitrite Negative (NEG) Urine Bilirubin Negative (NEG) Urine Urobilinogen Dipstick 0.2mg/dL (0.2 mg/dL) Urine Leukocyte Esterase Large (NEG) Urine RBC Occ/HPF (0-2) Urine WBC 11-20/HPF (0-4) Urine Squamous Epithelial Cells Few/LPF Urine Transitional Epithelial Cells Occ/LPF Urine Bacteria 0/HPF (0-FEW) Urine Hyaline Casts Occasional/HPF Urine Mucus Mod/LPF Urine Yeast Present/HPF D-Dimer (Karen) 0.46ug/mlFEU (0.00-0.50) Test 10/08/16 04:30 10/08/16 05:51 10/08/16 13:08 White Blood Count 11.1x10^3/uL (4.0-11.0) Red Blood Count 4.15x10^6/uL (3.50-5.40) Hemoglobin 10.6g/dL (12.0-15.5) Hematocrit 33.9% (36.0-47.0) Mean Corpuscular Volume 82fL (79-100) Mean Corpuscular Hemoglobin 26pg (25-35) Mean Corpuscular Hemoglobin Concent 31g/dL (31-37) Red Cell Distribution Width 17.1% (11.5-14.5) Platelet Count 350x10^3/uL (140-400) Neutrophils (%) (Auto) 88% (31-73) Lymphocytes (%) (Auto) 7% (24-48) Monocytes (%) (Auto) 5% (0-9) Eosinophils (%) (Auto) 0% (0-3) Basophils (%) (Auto) 0% (0-3) Neutrophils # (Auto) 9.7x10^3uL (1.8-7.7) Lymphocytes # (Auto) 0.7x10^3/uL (1.0-4.8) Monocytes # (Auto) 0.6x10^3/uL (0.0-1.1) Eosinophils # (Auto) 0.0x10^3/uL (0.0-0.7) Basophils # (Auto) 0.0x10^3/uL (0.0-0.2) Sodium Level 149mmol/L (136-145) Potassium Level 4.3mmol/L (3.5-5.1) Chloride Level 111mmol/L (98-107) Carbon Dioxide Level 26mmol/L (21-32) Anion Gap 12 (6-14) Blood Urea Nitrogen 21mg/dL (7-20) Creatinine 1.0mg/dL (0.6-1.0) Estimated GFR (Cockcroft-Gault) 63.5 Glucose Level 68mg/dL (70-99) Calcium Level 9.7mg/dL (8.5-10.1) Troponin I Quantitative 0.028ng/mL (0.000-0.055) Triglycerides Level 54mg/dL (0-150) Cholesterol Level 158mg/dL (0-200) LDL Cholesterol, Calculated 64mg/dL (0-100) VLDL Cholesterol, Calculated 11mg/dL (0-40) HDL Cholesterol 83mg/dL (40-60) Cholesterol/HDL Ratio 1.9 Amylase Level 111U/L (25-115) Lipase 675U/L (73-393) Glucose (Fingerstick) 70mg/dL (70-99) 80mg/dL (70-99) Laboratory Tests Test 10/07/16 13:40 10/07/16 14:55 10/07/16 19:25 10/07/16 22:35 White Blood Count 11.8x10^3/uL (4.0-11.0) Red Blood Count 4.08x10^6/uL (3.50-5.40) Hemoglobin 10.7g/dL (12.0-15.5) Hematocrit 33.7% (36.0-47.0) Mean Corpuscular Volume 83fL (79-100) Mean Corpuscular Hemoglobin 26pg (25-35) Mean Corpuscular Hemoglobin Concent 32g/dL (31-37) Red Cell Distribution Width 16.9% (11.5-14.5) Platelet Count 364x10^3/uL (140-400) Neutrophils (%) (Auto) 88% (31-73) Lymphocytes (%) (Auto) 9% (24-48) Monocytes (%) (Auto) 3% (0-9) Eosinophils (%) (Auto) 0% (0-3) Basophils (%) (Auto) 0% (0-3) Neutrophils # (Auto) 10.4x10^3uL (1.8-7.7) Lymphocytes # (Auto) 1.0x10^3/uL (1.0-4.8) Monocytes # (Auto) 0.4x10^3/uL (0.0-1.1) Eosinophils # (Auto) 0.0x10^3/uL (0.0-0.7) Basophils # (Auto) 0.0x10^3/uL (0.0-0.2) Segmented Neutrophils % 82% (35-66) Band Neutrophils % 1% (0-9) Lymphocytes % 13% (24-48) Monocytes % 4% (0-10) Toxic Granulation Slight Toxic Vacuolation Slight Platelet Estimate Adequate (ADEQUATE) Prothrombin Time 14.4SEC (11.7-14.0) Prothromb Time International Ratio 1.2 (0.8-1.1) Sodium Level 147mmol/L (136-145) Potassium Level 4.1mmol/L (3.5-5.1) Chloride Level 109mmol/L (98-107) Carbon Dioxide Level 28mmol/L (21-32) Anion Gap 10 (6-14) Blood Urea Nitrogen 22mg/dL (7-20) Creatinine 1.1mg/dL (0.6-1.0) Estimated GFR (Cockcroft-Gault) 56.9 Glucose Level 112mg/dL (70-99) Calcium Level 9.6mg/dL (8.5-10.1) Magnesium Level 2.3mg/dL (1.8-2.4) Total Bilirubin 0.2mg/dL (0.2-1.0) Direct Bilirubin < 0.1mg/dL (0.0-0.2) Aspartate Amino Transf (AST/SGOT) 69U/L (15-37) Alanine Aminotransferase (ALT/SGPT) 49U/L (14-59) Alkaline Phosphatase 116U/L (46-116) Creatine Kinase 139U/L (26-192) Creatine Kinase MB (Mass) 6.8ng/mL (0.0-3.6) Creatine Kinase MB Relative Index 4.9% (0-4) Troponin I Quantitative 0.031ng/mL (0.000-0.055) 0.035ng/mL (0.000-0.055) FT-Ymb-T-Type Natriuretic Peptide 52pg/mL (0-449) Total Protein 6.9g/dL (6.4-8.2) Albumin 2.9g/dL (3.4-5.0) Lipase 575U/L (73-393) Thyroid Stimulating Hormone (TSH) 8.885uIU/mL (0.358-3.74) Urine Collection Type U cath Urine Color Yellow Urine Clarity Clear Urine pH 5.5 Urine Specific [place]worth 1.015 Urine Protein Negativemg/dL (NEG-TRACE) Urine Glucose (UA) Negativemg/dL (NEG) Urine Ketones (Stick) Negativemg/dL (NEG) Urine Blood Small (NEG) Urine Nitrite Negative (NEG) Urine Bilirubin Negative (NEG) Urine Urobilinogen Dipstick 0.2mg/dL (0.2 mg/dL) Urine Leukocyte Esterase Large (NEG) Urine RBC Occ/HPF (0-2) Urine WBC 11-20/HPF (0-4) Urine Squamous Epithelial Cells Few/LPF Urine Transitional Epithelial Cells Occ/LPF Urine Bacteria 0/HPF (0-FEW) Urine Hyaline Casts Occasional/HPF Urine Mucus Mod/LPF Urine Yeast Present/HPF D-Dimer (Karen) 0.46ug/mlFEU (0.00-0.50) Test 10/08/16 04:30 10/08/16 05:51 10/08/16 13:08 White Blood Count 11.1x10^3/uL (4.0-11.0) Red Blood Count 4.15x10^6/uL (3.50-5.40) Hemoglobin 10.6g/dL (12.0-15.5) Hematocrit 33.9% (36.0-47.0) Mean Corpuscular Volume 82fL (79-100) Mean Corpuscular Hemoglobin 26pg (25-35) Mean Corpuscular Hemoglobin Concent 31g/dL (31-37) Red Cell Distribution Width 17.1% (11.5-14.5) Platelet Count 350x10^3/uL (140-400) Neutrophils (%) (Auto) 88% (31-73) Lymphocytes (%) (Auto) 7% (24-48) Monocytes (%) (Auto) 5% (0-9) Eosinophils (%) (Auto) 0% (0-3) Basophils (%) (Auto) 0% (0-3) Neutrophils # (Auto) 9.7x10^3uL (1.8-7.7) Lymphocytes # (Auto) 0.7x10^3/uL (1.0-4.8) Monocytes # (Auto) 0.6x10^3/uL (0.0-1.1) Eosinophils # (Auto) 0.0x10^3/uL (0.0-0.7) Basophils # (Auto) 0.0x10^3/uL (0.0-0.2) Sodium Level 149mmol/L (136-145) Potassium Level 4.3mmol/L (3.5-5.1) Chloride Level 111mmol/L (98-107) Carbon Dioxide Level 26mmol/L (21-32) Anion Gap 12 (6-14) Blood Urea Nitrogen 21mg/dL (7-20) Creatinine 1.0mg/dL (0.6-1.0) Estimated GFR (Cockcroft-Gault) 63.5 Glucose Level 68mg/dL (70-99) Calcium Level 9.7mg/dL (8.5-10.1) Troponin I Quantitative 0.028ng/mL (0.000-0.055) Triglycerides Level 54mg/dL (0-150) Cholesterol Level 158mg/dL (0-200) LDL Cholesterol, Calculated 64mg/dL (0-100) VLDL Cholesterol, Calculated 11mg/dL (0-40) HDL Cholesterol 83mg/dL (40-60) Cholesterol/HDL Ratio 1.9 Amylase Level 111U/L (25-115) Lipase 675U/L (73-393) Glucose (Fingerstick) 70mg/dL (70-99) 80mg/dL (70-99) Medications Current Medications Ondansetron HCl 4 mg 4 mg PRN Q8HRS PRN IV NAUSEA/VOMITING; Start 10/07/16 at 16:45; Stop 10/08/16 at 16:44 Sodium Chloride (Iv Sodium Chloride 0.9% 1000ml Bag) 1,000 ml @ 125 mls/hr Q8H IV Last administered on 10/07/16 16:47; Start 10/07/16 at 16:32; Stop at 13:10; Status DC Acetaminophen 650 mg 650 mg PRN Q4HRS PRN PO FEVER; Start 10/07/16 at 16:45; Stop 10/08/16 at 16:44 Ceftriaxone Sodium (Rocephin 1gm Ivpb For Omni) 50 ml @ 100 mls/hr 1X ONCE IV Last administered on 10/07/16 17:57; Start 10/07/16 at 17:30; Stop 10/07/16 at 17:59; Status DC Acetaminophen (Tylenol) 650 mg PRN Q4HRS PRN PO MILD PAIN / TEMP; Start at 18:00 Amlodipine Besylate (Norvasc) 5 mg DAILY PO ; Start 10/08/16 at 09:00; Stop at 13:10; Status DC Donepezil HCl (Aricept) 10 mg DAILY PO ; Start 10/08/16 at 09:00 Aspirin (Children'S Aspirin) 81 mg DAILY PO ; Start 10/08/16 at 09:00 Multivitamins (Thera M Plus) 1 tab DAILY PO ; Start 10/08/16 at 09:00 Albuterol/ Ipratropium (Duoneb) 3 ml PRN QID PRN NEB WHEEZING; Start 10/07/16 at 18:00 Atorvastatin Calcium (Lipitor) 10 mg QHS PO Last administered on 10/07/16 21: 48; Start 10/07/16 at 21:00 Memantine (Namenda) 10 mg BID PO Last administered on 10/07/16 21:49; Start at 21:00 Losartan Potassium (Cozaar) 100 mg DAILY PO ; Start 10/08/16 at 09:00 Magnesium Hydroxide 2400 mg 2,400 mg PRN DAILY PRN PO CONSTIPATION; Start 10/07 at 18:00 Ceftriaxone Sodium 1 gm/ Sodium Chloride 50 ml @ 100 mls/hr Q24H IV ; Start at 18:00; Stop 10/08/16 at 18:00; Status DC Dextrose 1,000 ml @ 75 mls/hr [id number] IV Last administered on 10/07/16 21:56 ; Start 10/07/16 at 18:30 Levothyroxine Sodium (Synthroid) 75 mcg DAILY07 PO ; Start 10/08/16 at 07:00 Albuterol/ Ipratropium 3 ml 3 ml RTQID NEB ; Start 10/08/16 at 16:00; Status UNV Piperacillin Sod/ Tazobactam Sod 3.375 gm/Sodium Chloride 50 ml @ 100 mls/hr Q8HRS IV ; Start 10/08/16 at 14:00; Status UNV Vancomycin HCl/ Sodium Chloride (Iv Sodium Chloride 0.9% 250ml) 250 ml @ 250 mls/hr Q24H IV ; Start 10/08/16 at 13:00; Status UNV Vancomycin HCl (Vanco Per Pharmacy) 1 each PRN DAILY PRN MC SEE COMMENTS; Start 10/08/16 at 13:00; Status UNV Active Scripts Active Levaquin (Levofloxacin) 500 Mg Tablet 1 Tab PO DAILY Reported Aricept (Donepezil Hcl) 10 Mg Tablet 1 Tab PO QHS Cozaar (Losartan Potassium) 100 Mg Tablet 100 Mg PO DAILY Namenda Xr (Memantine Hcl) 28 Mg Cap.spr.24 28 Mg PO DAILY Norvasc (Amlodipine Besylate) 5 Mg Tablet 1 Tab PO DAILY Lovastatin 40 Mg Tablet 1 Tab PO DAILY Acetaminophen 500 Mg Tablet 1 Tab PO QID Duoneb 0.5-3(2.5) Mg/3 Ml (Albuterol/Ipratropium) 3 Ml Ampul.neb 3 Ml NEB QID Seroquel (Quetiapine Fumarate) 25 Mg Tablet 1 Tab PO QHS PRN Aspirin 81 Mg Tab.chew 1 Tab PO DAILY Centrum Silver Tablet (Multivits-Min/Fa/Lycopene/Lut) 1 Each Tablet 1 Each PO DAILY Vitals/I & O Vital Sign - Last 24 Hours 10/07/16 10/07/16 10/07/16 10/07/16 14:10 15:00 16:00 18:00 Pulse 74 74 68 82 B/P 142/67 132/69 136/75 Pulse Ox 95 93 97 97 O2 Delivery Room Air Room Air Room Air Room Air 10/07/16 10/07/16 10/08/16 10/08/16 19:00 23:00 03:00 04:30 Temp 92.3 96.2 92.3 96.2 Pulse 90 88 95 Resp 18 18 18 B/P 137/76 135/68 118/63 Pulse Ox 99 98 96 O2 Delivery Room Air Room Air Room Air Room Air 10/08/16 10/08/16 10/08/16 10/08/16 07:00 08:00 08:50 09:00 Temp 96.9 98.2 96.9 98.2 Pulse 102 68 102 Resp 16 22 B/P 119/61 152/47 119/61 Pulse Ox 96 95 O2 Delivery Room Air Room Air Nasal Cannula O2 Flow Rate 2.0 2.0 10/08/16 11:00 Temp 97.5 97.5 Pulse 94 Resp 14 B/P 119/54 Pulse Ox 97 O2 Delivery Room Air Intake and Output 10/07/16 10/07/16 10/08/16 15:00 23:00 07:00 Intake Total 50 ml Output Total 200 ml Balance 50 ml -200 ml ISA SCHERER MD Oct 08, 2016 13:22
[2016-10-08] MEDS: PIPERACILLIN/TAZOBACTAM 3.375 GM in IV NORMAL SALINE 50ML 50 ML IV SCH ×2 (13:47→21:48)
[2016-10-08] MEDS: IV DEXTROSE 5% 1,000 ML IV SCH (13:47)
[2016-10-08] MEDS ORDERED: VANCOMYCIN 1.5 GM in IV NORMAL SALINE 500ML BAG 500 ML IV ONE (14:00)
--- NOTE | 2016-10-08 14:09 | RAD ---
Examination: CT head without contrast History: History of altered mental status comparison: 05/03/2007 Technique: Axial CT images of the head was performed without contrast. PQRS Compliance Statement: One or more of the following individualized dose reduction techniques were utilized for this examination: 1. Automated exposure control 2. Adjustment of the mA and/or kV according to patient size 3. Use of iterative reconstruction technique Findings: There is no evidence of midline shift. There is no acute intracranial bleed or extra-axial fluid collection identified. Moderate bilateral periventricular white matter hypodensities likely chronic small vessel ischemic disease. The visualized lateral ventricles, third ventricle, fourth ventricle are appropriate for age. The basal cisterns are uneffaced. The visualized paranasal sinuses, mastoid air cells are clear. Impression: No acute intracranial findings.
--- NOTE | 2016-10-08 15:27 | PDOC2 ---
CONSULT Date of Consult Date of Consult DATE: 10/08/16 TIME: 15:08 Reason for Consult Reason for Consult: Elevated lipase. Referring Physician Referring Physician: Dr. Hair. Source Source: Chart review, Unable to obtain due to (somnolence/obtundation) History of Present Illness Reason for Visit: 86 y/o female brought to ER by EMS after syncopal episode at [place]. Family states not the first time apparently. They describe "eyes rolling back", then loss of conciousness with bowel and bladder incontinence, but no typical seizure activity, Apparently some indications of PPM battery issue. We were asked to see after 2 elevated lipase levels. Currently patient will not arouse; she has a h/o dementia as well, so any history from her would be suspect. Family in attendance give a h/o some dyspeptic symptoms in past for which she used antacids regularly, though never particularly investigated or diagnosed. No h/ o PUD, GB, liver or pancreatic issues they are aware. Never smoker or drinker. ASA 81mg daily at home; no NSAIDS. Typically free of diarrhea or constipation. No h/o overt bleeding. Had colonoscopy [place] [address] Hair with diverticulosis and "benign polyp". No nausea, vomiting, or abdominal pain they are aware of. Generally good appetite and not losing weight. Past Medical History Cardiovascular: HTN, Hyperlipidemia, Other (rhythm disturbance requiring PPMI) CENTRAL NERVOUS SYSTEM: Dementia (termed Alzheimer's) Musculoskeletal: Osteoarthritis Renal/: Other (CKD III) Past Surgical History Past Surgical History: Pacemaker, Total hip replacement (right), Hysterectomy ( with BSO), Other (right axillary benign cystectomy) Family History Family History Not available from patient due to mental status. Social History Social History , in [place]. No ALCOHOL: none Drugs: None Lives: Skilled Nursing Current Problem List Problem List Problems Medical Problems: (1) Syncope Status: Acute Current Medications Current Medications Current Medications Ondansetron HCl 4 mg 4 mg PRN Q8HRS PRN IV NAUSEA/VOMITING; Start 10/07/16 at 16:45; Stop 10/08/16 at 16:44 Sodium Chloride (Iv Sodium Chloride 0.9% 1000ml Bag) 1,000 ml @ 125 mls/hr Q8H IV Last administered on 10/07/16t 16:47; Start 10/07/16 at 16:32; Stop at 13:10; Status DC Acetaminophen 650 mg 650 mg PRN Q4HRS PRN PO FEVER; Start 10/07/16 at 16:45; Stop 10/08/16 at 16:44 Ceftriaxone Sodium (Rocephin 1gm Ivpb For Omni) 50 ml @ 100 mls/hr 1X ONCE IV Last administered on 10/07/16 17:57; Start 10/07/16 at 17:30; Stop 10/07/16 at 17:59; Status DC Acetaminophen (Tylenol) 650 mg PRN Q4HRS PRN PO MILD PAIN / TEMP; Start at 18:00 Amlodipine Besylate (Norvasc) 5 mg DAILY PO ; Start 10/08/16 at 09:00; Stop at 13:10; Status DC Donepezil HCl (Aricept) 10 mg DAILY PO ; Start 10/08/16 at 09:00 Aspirin (Children'S Aspirin) 81 mg DAILY PO ; Start 10/08/16 at 09:00 Multivitamins (Thera M Plus) 1 tab DAILY PO ; Start 10/08/16 at 09:00 Albuterol/ Ipratropium (Duoneb) 3 ml PRN QID PRN NEB WHEEZING; Start 10/07/16 at 18:00; Stop 10/08/16 at 13:14; Status DC Atorvastatin Calcium (Lipitor) 10 mg QHS PO Last administered on 10/07/16 21: 48; Start 10/07/16 at 21:00 Memantine (Namenda) 10 mg BID PO Last administered on 10/07/16 21:49; Start at 21:00 Losartan Potassium (Cozaar) 100 mg DAILY PO ; Start 10/08/16 at 09:00 Magnesium Hydroxide 2400 mg 2,400 mg PRN DAILY PRN PO CONSTIPATION; Start 10/07 at 18:00 Ceftriaxone Sodium 1 gm/ Sodium Chloride 50 ml @ 100 mls/hr Q24H IV ; Start at 18:00; Stop 10/08/16 at 18:00; Status DC Dextrose 1,000 ml @ 75 mls/hr [id number] IV Last administered on 10/08/16 13:47 ; Start 10/07/16 at 18:30 Levothyroxine Sodium (Synthroid) 75 mcg DAILY07 PO ; Start 10/08/16 at 07:00 Albuterol/ Ipratropium 3 ml 3 ml RTQID NEB ; Start 10/08/16 at 16:00 Piperacillin Sod/ Tazobactam Sod 3.375 gm/Sodium Chloride 50 ml @ 100 mls/hr Q8HRS IV Last administered on 10/08/16 13:47; Start 10/08/16 at 14:00 Vancomycin HCl/ Sodium Chloride (Iv Sodium Chloride 0.9% 250ml) 250 ml @ 250 mls/hr Q24H IV ; Start 10/09/16 at 14:00 Vancomycin HCl 1 each 1 each PRN DAILY PRN MC SEE COMMENTS Last administered on 10/08/16 13:20; Start 10/08/16 at 13:00 Vancomycin HCl/ Sodium Chloride (Iv Sodium Chloride 0.9% 500ml Bag) 500 ml @ 250 mls/hr 1X ONCE IV Last administered on 10/08/16 14:58; Start 10/08/16 at 14:00; Stop 10/08/16 at 15:59 Albuterol Sulfate (Ventolin Neb Soln) 2.5 mg PRN QID PRN NEB WHEEZING; Start at 13:15 Active Scripts Active Levaquin (Levofloxacin) 500 Mg Tablet 1 Tab PO DAILY Reported Aricept (Donepezil Hcl) 10 Mg Tablet 1 Tab PO QHS Cozaar (Losartan Potassium) 100 Mg Tablet 100 Mg PO DAILY Namenda Xr (Memantine Hcl) 28 Mg Cap.spr.24 28 Mg PO DAILY Norvasc (Amlodipine Besylate) 5 Mg Tablet 1 Tab PO DAILY Lovastatin 40 Mg Tablet 1 Tab PO DAILY Acetaminophen 500 Mg Tablet 1 Tab PO QID Duoneb 0.5-3(2.5) Mg/3 Ml (Albuterol/Ipratropium) 3 Ml Ampul.neb 3 Ml NEB QID Seroquel (Quetiapine Fumarate) 25 Mg Tablet 1 Tab PO QHS PRN Aspirin 81 Mg Tab.chew 1 Tab PO DAILY Centrum Silver Tablet (Multivits-Min/Fa/Lycopene/Lut) 1 Each Tablet 1 Each PO DAILY Allergies Allergies: Coded Allergies: No Known Drug Allergies (Unverified , 05/19/16) ROS Review of System Not obtainable due to mental status. Physical Exam General: Other (responds to noxious stimuli only) Lungs: Clear to auscultation Heart: Regular rate, Normal S1, Normal S2, No murmurs, Other (PPM left supraclavicular area) Abdomen: Normal bowel sounds, Soft, No tenderness (apparent), No hepatosplenomegaly, No masses Extremities: No cyanosis, No edema Skin: No significant lesion Neuro: Normal tone, Sensation intact (if noxious), Reflexes 2+ Psych/Mental Status: Other (as if asleep) MUSCULOSKELETAL: No deformity, No swelling Vitals VITALS Vital Signs Date Time Temp Pulse Resp B/P Pulse Ox O2 Delivery O2 Flow Rate FiO2 10/08/16 14:58 98.1 105 14 111/55 96 Room Air 98.1 10/08/16 08:50 2.0 Labs Labs Laboratory Tests Test 10/07/16 13:40 10/07/16 14:55 10/07/16 19:25 10/07/16 22:35 White Blood Count 11.8x10^3/uL (4.0-11.0) Red Blood Count 4.08x10^6/uL (3.50-5.40) Hemoglobin 10.7g/dL (12.0-15.5) Hematocrit 33.7% (36.0-47.0) Mean Corpuscular Volume 83fL (79-100) Mean Corpuscular Hemoglobin 26pg (25-35) Mean Corpuscular Hemoglobin Concent 32g/dL (31-37) Red Cell Distribution Width 16.9% (11.5-14.5) Platelet Count 364x10^3/uL (140-400) Neutrophils (%) (Auto) 88% (31-73) Lymphocytes (%) (Auto) 9% (24-48) Monocytes (%) (Auto) 3% (0-9) Eosinophils (%) (Auto) 0% (0-3) Basophils (%) (Auto) 0% (0-3) Neutrophils # (Auto) 10.4x10^3uL (1.8-7.7) Lymphocytes # (Auto) 1.0x10^3/uL (1.0-4.8) Monocytes # (Auto) 0.4x10^3/uL (0.0-1.1) Eosinophils # (Auto) 0.0x10^3/uL (0.0-0.7) Basophils # (Auto) 0.0x10^3/uL (0.0-0.2) Segmented Neutrophils % 82% (35-66) Band Neutrophils % 1% (0-9) Lymphocytes % 13% (24-48) Monocytes % 4% (0-10) Toxic Granulation Slight Toxic Vacuolation Slight Platelet Estimate Adequate (ADEQUATE) Prothrombin Time 14.4SEC (11.7-14.0) Prothromb Time International Ratio 1.2 (0.8-1.1) Sodium Level 147mmol/L (136-145) Potassium Level 4.1mmol/L (3.5-5.1) Chloride Level 109mmol/L (98-107) Carbon Dioxide Level 28mmol/L (21-32) Anion Gap 10 (6-14) Blood Urea Nitrogen 22mg/dL (7-20) Creatinine 1.1mg/dL (0.6-1.0) Estimated GFR (Cockcroft-Gault) 56.9 Glucose Level 112mg/dL (70-99) Calcium Level 9.6mg/dL (8.5-10.1) Magnesium Level 2.3mg/dL (1.8-2.4) Total Bilirubin 0.2mg/dL (0.2-1.0) Direct Bilirubin < 0.1mg/dL (0.0-0.2) Aspartate Amino Transf (AST/SGOT) 69U/L (15-37) Alanine Aminotransferase (ALT/SGPT) 49U/L (14-59) Alkaline Phosphatase 116U/L (46-116) Creatine Kinase 139U/L (26-192) Creatine Kinase MB (Mass) 6.8ng/mL (0.0-3.6) Creatine Kinase MB Relative Index 4.9% (0-4) Troponin I Quantitative 0.031ng/mL (0.000-0.055) 0.035ng/mL (0.000-0.055) MK-Fus-H-Type Natriuretic Peptide 52pg/mL (0-449) Total Protein 6.9g/dL (6.4-8.2) Albumin 2.9g/dL (3.4-5.0) Lipase 575U/L (73-393) Thyroid Stimulating Hormone (TSH) 8.885uIU/mL (0.358-3.74) Urine Collection Type U cath Urine Color Yellow Urine Clarity Clear Urine pH 5.5 Urine Specific [place] 1.015 Urine Protein Negativemg/dL (NEG-TRACE) Urine Glucose (UA) Negativemg/dL (NEG) Urine Ketones (Stick) Negativemg/dL (NEG) Urine Blood Small (NEG) Urine Nitrite Negative (NEG) Urine Bilirubin Negative (NEG) Urine Urobilinogen Dipstick 0.2mg/dL (0.2 mg/dL) Urine Leukocyte Esterase Large (NEG) Urine RBC Occ/HPF (0-2) Urine WBC 11-20/HPF (0-4) Urine Squamous Epithelial Cells Few/LPF Urine Transitional Epithelial Cells Occ/LPF Urine Bacteria 0/HPF (0-FEW) Urine Hyaline Casts Occasional/HPF Urine Mucus Mod/LPF Urine Yeast Present/HPF D-Dimer (Karen) 0.46ug/mlFEU (0.00-0.50) Test 10/08/16 04:30 10/08/16 05:51 10/08/16 13:08 White Blood Count 11.1x10^3/uL (4.0-11.0) Red Blood Count 4.15x10^6/uL (3.50-5.40) Hemoglobin 10.6g/dL (12.0-15.5) Hematocrit 33.9% (36.0-47.0) Mean Corpuscular Volume 82fL (79-100) Mean Corpuscular Hemoglobin 26pg (25-35) Mean Corpuscular Hemoglobin Concent 31g/dL (31-37) Red Cell Distribution Width 17.1% (11.5-14.5) Platelet Count 350x10^3/uL (140-400) Neutrophils (%) (Auto) 88% (31-73) Lymphocytes (%) (Auto) 7% (24-48) Monocytes (%) (Auto) 5% (0-9) Eosinophils (%) (Auto) 0% (0-3) Basophils (%) (Auto) 0% (0-3) Neutrophils # (Auto) 9.7x10^3uL (1.8-7.7) Lymphocytes # (Auto) 0.7x10^3/uL (1.0-4.8) Monocytes # (Auto) 0.6x10^3/uL (0.0-1.1) Eosinophils # (Auto) 0.0x10^3/uL (0.0-0.7) Basophils # (Auto) 0.0x10^3/uL (0.0-0.2) Sodium Level 149mmol/L (136-145) Potassium Level 4.3mmol/L (3.5-5.1) Chloride Level 111mmol/L (98-107) Carbon Dioxide Level 26mmol/L (21-32) Anion Gap 12 (6-14) Blood Urea Nitrogen 21mg/dL (7-20) Creatinine 1.0mg/dL (0.6-1.0) Estimated GFR (Cockcroft-Gault) 63.5 Glucose Level 68mg/dL (70-99) Calcium Level 9.7mg/dL (8.5-10.1) Troponin I Quantitative 0.028ng/mL (0.000-0.055) Triglycerides Level 54mg/dL (0-150) Cholesterol Level 158mg/dL (0-200) LDL Cholesterol, Calculated 64mg/dL (0-100) VLDL Cholesterol, Calculated 11mg/dL (0-40) HDL Cholesterol 83mg/dL (40-60) Cholesterol/HDL Ratio 1.9 Amylase Level 111U/L (25-115) Lipase 675U/L (73-393) Glucose (Fingerstick) 70mg/dL (70-99) 80mg/dL (70-99) Laboratory Tests Test 10/07/16 19:25 10/07/16 22:35 10/08/16 04:30 10/08/16 05:51 D-Dimer (Karen) 0.46ug/mlFEU (0.00-0.50) Troponin I Quantitative 0.035ng/mL (0.000-0.055) 0.028ng/mL (0.000-0.055) White Blood Count 11.1x10^3/uL (4.0-11.0) Red Blood Count 4.15x10^6/uL (3.50-5.40) Hemoglobin 10.6g/dL (12.0-15.5) Hematocrit 33.9% (36.0-47.0) Mean Corpuscular Volume 82fL (79-100) Mean Corpuscular Hemoglobin 26pg (25-35) Mean Corpuscular Hemoglobin Concent 31g/dL (31-37) Red Cell Distribution Width 17.1% (11.5-14.5) Platelet Count 350x10^3/uL (140-400) Neutrophils (%) (Auto) 88% (31-73) Lymphocytes (%) (Auto) 7% (24-48) Monocytes (%) (Auto) 5% (0-9) Eosinophils (%) (Auto) 0% (0-3) Basophils (%) (Auto) 0% (0-3) Neutrophils # (Auto) 9.7x10^3uL (1.8-7.7) Lymphocytes # (Auto) 0.7x10^3/uL (1.0-4.8) Monocytes # (Auto) 0.6x10^3/uL (0.0-1.1) Eosinophils # (Auto) 0.0x10^3/uL (0.0-0.7) Basophils # (Auto) 0.0x10^3/uL (0.0-0.2) Sodium Level 149mmol/L (136-145) Potassium Level 4.3mmol/L (3.5-5.1) Chloride Level 111mmol/L (98-107) Carbon Dioxide Level 26mmol/L (21-32) Anion Gap 12 (6-14) Blood Urea Nitrogen 21mg/dL (7-20) Creatinine 1.0mg/dL (0.6-1.0) Estimated GFR (Cockcroft-Gault) 63.5 Glucose Level 68mg/dL (70-99) Calcium Level 9.7mg/dL (8.5-10.1) Triglycerides Level 54mg/dL (0-150) Cholesterol Level 158mg/dL (0-200) LDL Cholesterol, Calculated 64mg/dL (0-100) VLDL Cholesterol, Calculated 11mg/dL (0-40) HDL Cholesterol 83mg/dL (40-60) Cholesterol/HDL Ratio 1.9 Amylase Level 111U/L (25-115) Lipase 675U/L (73-393) Glucose (Fingerstick) 70mg/dL (70-99) Test 10/08/16 13:08 Glucose (Fingerstick) 80mg/dL (70-99) Mild normocytic anemia. Mildly elevated lipase on 2 occasions, but <2x normal both times. Images Images FINDINGS Evaluation of solid organs is limited by lack of intravenous contrast. Evaluation of enteric structures may be limited by lack of oral contrast. Patient's arms are on her abdomen, creating streak artifact which also mildly limits evaluation. Evaluation of lower pelvis is limited secondary to streak artifact emanating from patient's right total hip arthroplasty. Images of lower chest demonstrate mucous impaction of multiple left lower lobe bronchi. Portions of pacemaker are seen. Liver, spleen, pancreas, and bilateral adrenal glands are unremarkable. Gallbladder is unremarkable. Bilateral kidneys are without evidence of stone. Visualized ureters are without evidence of stone or obstruction. No bowel obstruction or inflammation is seen. Appendix is without evidence of inflammation. Colonic diverticulosis is noted, but no diverticulitis is appreciated. No free air or free fluid is in the abdomen or pelvis. Kaufman catheter is present in urinary bladder. No acute pelvic fractures are appreciated. IMPRESSION 1. No acute abnormality identified in the abdomen or pelvis. 2. Left lower lobe bronchi demonstrate mucous impaction. Assessment/Plan Assessment/Plan IMP: 1. Elevated lipase, mild, but without other clinical or imaging features to suggest pancreatitis. This is likely a meaningless finding. 2. H/o diverticulosis and polyp. 3. H/o undiagnosed dyspepsia. 4. Recent spells/syncope. REC: 1. Continue evaluation of other issues. 2. Observe for any issues indicating meaningful GI issue. Thank you for allowing me to assist in the care of this patient. Please call if questions. ISA ENCARNACION MD Oct 08, 2016 15:27
[2016-10-08] MEDS: IPRATRPIUM/ALBUTEROL 0.5/2.5MG 3 ML NEBU. NEB SCH ×2 (15:44→19:30)
[2016-10-08] MEDS ORDERED: CEFTRIAXONE SODIUM 1 GM in IV NORMAL SALINE 50ML 50 ML IV SCH (18:00)
--- NOTE | 2016-10-08 20:24 | CARD ---
APPROVED REPORT EXAM: Two-dimensional and M-mode echocardiogram with Doppler and color Doppler. Other Information Quality : GoodHR: 90bpm Rhythm : Pacemaker INDICATION Syncope RISK FACTORS Hypertension 2D DIMENSIONS RVDd2.4 (2.9-3.5cm)Left Atrium(2D)2.9 (1.6-4.0cm) IVSd0.8 (0.7-1.1cm)Aortic Root(2D)2.7 (2.0-3.7cm) LVDd3.4 (3.9-5.9cm)LVOT Diameter2.4 (1.8-2.4cm) PWd0.8 (0.7-1.1cm)LVDs2.3 (2.5-4.0cm) FS (%) 33.8 %SV30.8 ml LVEF(%)63.7 (>50%) Aortic Valve AoV Peak Zane.128.7cm/sAoV VTI22.9cm AO Peak GR.6.6mmHgLVOT VTI 17.46cm AO Mean GR.3mmHg Mitral Valve MV E Wrzxcngh58.2cm/sMV E Peak Gr.4mmHg MV DECEL [id number] Cghvhbxl623.0cm/s MV E Mean Gr.2mmHgE/A Ratio0.7 MV A [id number] TDI Lateral E' P. V10.68cm/sMedial E' P. V8.17cm/s E/Lateral E'7.1E/Medial E'9.3 Tricuspid Valve TR P. [id number]/sTR Peak Gr.33mmHg LEFT VENTRICLE The left ventricle is normal size. There is normal left ventricular wall thickness. The left ventricu lar systolic function is normal and the ejection fraction is within normal range. The Ejection Fracti on is 60-65%. There is normal LV segmental wall motion. Transmitral Doppler flow pattern is Grade I-a bnormal relaxation pattern. RIGHT VENTRICLE The right ventricle is normal size. There is normal right ventricular wall thickness. The right ventr icular systolic function is normal. ATRIA The left atrium size is normal. The right atrium size is normal. The interatrial septum is intact wit h no evidence for an atrial septal defect or patent foramen ovale as noted on 2-D or Doppler imaging. AORTIC VALVE The aortic valve is moderately sclerotic. The aortic valve is trileaflet. Doppler and Color Flow reve aled trace aortic regurgitation. There is no significant aortic valvular stenosis. MITRAL VALVE Mitral annular calcification is mild. The mitral valve leaflets are thickened. There is no evidence o f mitral valve prolapse. There is no mitral valve stenosis. Doppler and Color Flow revealed no mitral valve regurgitation noted. TRICUSPID VALVE Doppler and Color Flow revealed moderate tricuspid regurgitation. The pulmonary artery systolic press ure is estimated at 36 mmHg. There is mild pulmonary hypertension. PULMONIC VALVE The pulmonary valve is normal in structure and function. Doppler and Color Flow revealed no pulmonic valvular regurgitation. There is no pulmonic valvular stenosis. GREAT VESSELS The aortic root is normal in size. The ascending aorta is normal in size. The pulmonary artery is nor mal. The IVC is normal in size and collapses >50% with inspiration. PERICARDIAL EFFUSION There is no evidence of significant pericardial effusion. Critical Notification Critical Value: No <Conclusion> The left ventricle is normal size. There is normal left ventricular wall thickness. The left ventricular systolic function is normal and the ejection fraction is 60-65% There is a grade 1 diastolic dysfunction. There is no pericardial effusion. There is no mitral stenosis or regurgitation. Left atrium is of a normal size. The aortic valve is tricuspid. The valve leaflets are thickened. There is no aortic stenosis and a trace aortic regurgitation. The right ventricle is of normal size with normal systolic function. There is mild tricuspid regurgitation. Pulmonary artery systolic pressure is 36 mmHg. Pulmonic valve is normal.
[2016-10-08] MEDS: ATORVASTATIN CALCIUM 10 MG TABLET. PO SCH (21:00)
[2016-10-09 03:00] VITALS: BP 116/73
[2016-10-09 05:02] LABS: BASO % 0 % (0-3); EOS % 0 % (0-3); HEMATOCRIT 30.3 % (36.0-47.0); HEMOGLOBIN 9.6 g/dL (12.0-15.5); LYMPH # 1.5 x10^3/uL (1.0-4.8); LYMPH % 13 % (24-48); MEAN CORPUSCULAR HEMOGLOBIN 26 pg (25-35); MEAN CORPUSCULAR HGB CONC 32 g/dL (31-37); MEAN CORPUSCULAR VOLUME 81 fL (79-100); MONO % 9 % (0-9); NEUT % 77 % (31-73); PLATELET COUNT 289 x10^3/uL (140-400); RED BLOOD COUNT 3.75 x10^6/uL (3.50-5.40); RED CELL DISTRIBUTION WIDTH 16.8 % (11.5-14.5); WHITE BLOOD COUNT 11.5 x10^3/uL (4.0-11.0)
[2016-10-09 05:12] LABS: CALCIUM 9.2 mg/dL (8.5-10.1); CREATININE 1.3 mg/dL (0.6-1.0); GFR 46.9; POTASSIUM 3.9 mmol/L (3.5-5.1)
[2016-10-09 05:16] LABS: ALBUMIN 2.5 g/dL (3.4-5.0); ALK PHOS 108 U/L (46-116); ALT (SGPT) 41 U/L (14-59); AST (SGOT) 83 U/L (15-37); DIRECT BILIRUBIN < 0.1 mg/dL (0.0-0.2); TOTAL BILIRUBIN 0.2 mg/dL (0.2-1.0); TOTAL PROTEIN 6.1 g/dL (6.4-8.2)
[2016-10-09 05:22] LABS: AMYLASE 92 U/L (25-115)
--- NOTE | 2016-10-09 05:39 | CONS ---
DATE OF CONSULTATION: 10/08/2016 ATTENDING PHYSICIAN: Dr. Dorian Hair. REASON FOR CONSULTATION: The patient is seen in pulmonary consultation at the request of Dr. Hair for abnormal CT of the chest. HISTORY OF PRESENT ILLNESS: The patient is an 86-year-old with severe dementia. According to the family members, she is normally more awake and alert. Over the last 24-48 hours, she became more confused and less alert. She actually had a syncopal episode and was transferred to [facility]. She was admitted. Part of her workup included a CT of the chest. I reviewed the CT. There is what appears to be debris in the left lower lobe bronchus. I was asked to see her in consultation. Family states that she has never smoked. There is no history given of fever, chills or productive cough. PAST MEDICAL HISTORY: Hypertension, hyperlipidemia, Alzheimer's disease and chronic kidney disease. PAST SURGICAL HISTORY: Right hip arthroplasty, polypectomy, pacemaker implantation, abdominal hysterectomy. SOCIAL HISTORY: She resides at a halfway. There is no history of tobacco or alcohol. FAMILY HISTORY: Noncontributory in this age group. REVIEW OF SYSTEMS: Unobtainable secondary to the patient's condition. CURRENT MEDICATION: List was reviewed. PHYSICAL EXAMINATION: VITAL SIGNS: The patient was sleepy, but arousable. She was in no respiratory distress on room air. HEENT: Eyes, the sclerae were nonicteric. NECK: Jugular venous distention was not elevated. No lymphadenopathy. CHEST: Full expansion. LUNGS: Diminished breath sounds. No wheezes. CARDIOVASCULAR: Regular rate and rhythm with S1, S2, no S3. ABDOMEN: Soft, nontender, nondistended. EXTREMITIES: No clubbing, cyanosis or edema. NEUROLOGIC: The patient was sleepy, but arousable, moving all extremities with stimulation. A detailed neuro exam was not performed. LABORATORY DATA: Reviewed. White count was elevated. Hemoglobin and hematocrit were noted. INR was 1.0. Electrolytes was deranged. A CT chest reviewed as indicated above. IMPRESSION: 1. Abnormal CT of the chest revealing left lower lobe debris, suspect mucous plugging. The patient has never smoked. There has been no history given of hemoptysis. 2. Possible aspiration pneumonia. 3. Metabolic toxic encephalopathy. 4. Severe Alzheimer's dementia. 5. Hyponatremia. 6. Chronic kidney disease. PLAN: 1. Recommend to continue current IV antibiotics. 2. Case discussed with family members at the bedside. They do not wish to be more aggressive than just treating a pneumonia, they declined bronchoscopy and/or repeat CT of the chest. We will follow clinical course and make recommendations. I do appreciate the privilege in sharing in the patient's care. GINA NETTLES MD DR: SARAY/jason JOB#: [id number] / [id number]
--- NOTE | 2016-10-09 05:59 | CONS ---
DATE OF CONSULTATION: 10/08/2016 HISTORY OF PRESENT ILLNESS: This is an 86-year-old black female who lives in a half-way. She came in with syncopal episode. She was seated having her breakfast. She had finished her breakfast and was still seated; when she slumped over. She has done this several times in the past. However, at this time, the half-way personnel felt that they could not feel the pulse. CPR was initiated. ____. She was brought into the Emergency Room. In the Emergency Room, she was awake with a normal blood pressure. She was then hospitalized. The daughter who was in the room said that she has had several such episodes. It is always when she seated for a while. She has to be seated for at least half an hour before she could have one of these episodes. She slumps over. She was immediately put back to bed and she is alright and so no further treatment was start on those occasions, but in this occasion, the personnel felt that there could not feel the pulse and so CPR was initiated and she was brought into the hospital. She has never had such episodes when she is not being seated. She has history of hypertension. There is no history of diabetes mellitus. There is no history of myocardial infarction or of a stroke. She does have a pacemaker and the pacemaker battery was replaced in 2016. She does not smoke or take alcohol. PAST MEDICAL HISTORY: She has had a right total hip arthroplasty and abdominal hysterectomy and bilateral salpingo-oophorectomy. She has osteoarthritis and diverticulosis. MEDICATIONS: Her present medications: 1. Amlodipine 5 mg a day. 2. Losartan 100 mg a day. 3. Aspirin 81 mg a day. 4. Aricept 10 mg a day. 5. Namenda XR 28 mg a day. 6. DuoNeb via nebulizer. 7. Lovastatin 40 mg a day. She has dementia. She does talk some, but not always discernible. PHYSICAL EXAMINATION: GENERAL: She was lying and sleepy. I did not try to wake her up or have a talk. VITAL SIGNS: The heart rate was 80 per minute and regular. The blood pressure lying was 160/80, while seated it was 142/67. LUNGS: Clear. HEART: The heart sounds are normal with no murmur or gallop. ABDOMEN: Soft. EXTREMITIES: There is no edema of the legs. An EKG was normal. A chest x-ray showed a normal size heart, and clear lung mullins. The pacemaker was in position. LABORATORIES AND INVESTIGATIONS: The hemoglobin was 10.6. The sodium was 149, potassium was 4.3, chloride was 111, and CO2 was 26. The BUN was 21 and creatinine was 1. Troponin was negative. The total cholesterol was 158, triglycerides 54, LDL cholesterol was 64, and the HDL cholesterol was 83. The echocardiogram showed a normal systolic function with an ejection fraction of 55-60%. There is a grade 1 diastolic dysfunction. There was no evidence of valvular dysfunction. The left atrium was of normal size. There was probably mild pulmonary hypertension. The pacemaker was interrogated. She has had several episodes of atrial fibrillation. These have been very brief. The longest episode lasted seven minutes. The fastest heart rate was 150 beats per minute. No episodes of atrial fibrillation occurred on the day of admission that brought her into the hospital. IMPRESSION: 1. Syncope, probably due to orthostatic hypotension. Mild orthostatic hypotension has been demonstrated probably taken about 2 minutes after sitting. These episodes that she has at home occur only after she has been seated for at least 30 minutes or more. 2. Paroxysmal atrial fibrillation documented on interrogation of the pacemaker probably asymptomatic. 3. Alzheimer's. 4. Hypertension. 5. Dyslipidemia, on statin. 6. Probable mild dehydration with hypernatremia, now being treated with D5W. I inform the family that she probably should not be seated for more than 30 to 45 minutes and then either made to recline or put to bed. Support hose may help, but legs are so small. I am not sure whether we will get something that really fits. One could consider adding Florinef, but I will discuss this with Dr. Hair. The pacemaker was interrogated. She has had several episodes of atrial fibrillation, all of them being very brief and the longest lasting seven minutes. The fastest heart rate was 150 beats per minute. As far as her atrial fibrillation goes since the left atrial size was normal, it is unlikely that she would have more prolonged episodes of atrial fibrillation at least at this point of time. One could consider adding a beta gavin. The beta gavin would serve to control her ventricular response and could also helping with orthostatic hypotension. I certainly would not consider anticoagulating her at this time. She lives in a half-way. I could arrange for monitoring to be done with the [facility] system even when she is at the half-way in about 3 to 6 months. Thank you for asking me to see her. LINNEA HUNT MD DR: CORI/jason JOB#: [id number] / [id number]
[2016-10-09 07:00] VITALS: BP 125/72
[2016-10-09] MEDS: LEVOTHYROXINE 75 MCG TABLET PO SCH (07:00)
[2016-10-09] MEDS: IV DEXTROSE 5% 1,000 ML IV SCH (07:27)
[2016-10-09] MEDS: PIPERACILLIN/TAZOBACTAM 3.375 GM in IV NORMAL SALINE 50ML 50 ML IV SCH ×3 (07:30→22:15)
--- NOTE | 2016-10-09 08:49 | RAD ---
Bilateral lower extremity arterial ultrasound, 10/08/2016: History: Peripheral vascular disease, left ankle ulcer Duplex evaluation of the major arteries in both lower extremities was performed including grayscale, color-flow and spectral Doppler analysis. There are mild to moderate scattered calcific plaques in the arteries bilaterally. The right common femoral artery demonstrates a triphasic Doppler waveform. At and distal to the mid superficial femoral artery level the Doppler waveforms on the right are monophasic. No significant focal velocity acceleration is seen in the right femoral or popliteal arteries to suggest high-grade focal stenosis. Patent anterior tibial, posterior tibial and peroneal arteries are present in the right lower leg demonstrating monophasic Doppler waveforms. The right dorsalis pedis artery is patent with a monophasic Doppler waveform. On the left, the common femoral Doppler waveform is also triphasic. The Doppler waveforms became monophasic at and distal to the proximal superficial femoral artery level. There is a moderate velocity acceleration in the left popliteal artery up to 206 cm/s. The distal superficial femoral velocity proximal to this level was 75 cm/s. The findings suggest moderate left popliteal stenosis. Patent posterior tibial, anterior tibial and peroneal arteries are present in the left lower leg demonstrating monophasic Doppler waveforms. The left dorsalis pedis artery is also patent with a monophasic Doppler waveform. IMPRESSION: 1. Mild to moderate scattered atherosclerotic plaquing bilaterally. 2. Doppler evidence of moderate stenosis at the left popliteal artery level. 3. No Doppler evidence of high-grade focal right femoral-popliteal stenosis. 4. Patent three-vessel runoff in both lower legs with abnormal monophasic waveforms bilaterally.
[2016-10-09] MEDS: ASPIRIN 81 MG TAB.CHEW PO SCH (09:00)
[2016-10-09] MEDS: MULTIVITAMIN with MINERAL TABLET. PO SCH (09:00)
[2016-10-09] MEDS: LOSARTAN POTASSIUM 50 MG TABLET. PO SCH (09:00)
[2016-10-09] MEDS: DONEPEZIL HCL 10 MG TABLET. PO SCH (09:00)
[2016-10-09] MEDS: MEMANTINE 10 MG TABLET. PO SCH ×2 (09:00→23:25)
--- NOTE | 2016-10-09 09:07 | PDOC ---
PULMONARY PROGRESS NOTES Subjective not following my commands, rn states, she at times responds. Vitals Vital Signs Date Time Temp Pulse Resp B/P Pulse Ox O2 Delivery O2 Flow Rate FiO2 10/09/16 07:00 98.8 92 18 125/72 97 Room Air 98.8 10/08/16 20:00 2.0 Comments ros discussed w rn, as mentioned as above other sys otherwise neg General: Confused HEENT: Other (nc at perrl nose clear) Lungs: Crackles Cardiovascular: S1, S2 Abdomen: Soft, Non-tender Extremities: No Edema Skin: Warm Labs Laboratory Tests Test 10/07/16 13:40 10/07/16 14:55 10/07/16 19:25 10/07/16 22:00 White Blood Count 11.8x10^3/uL (4.0-11.0) Red Blood Count 4.08x10^6/uL (3.50-5.40) Hemoglobin 10.7g/dL (12.0-15.5) Hematocrit 33.7% (36.0-47.0) Mean Corpuscular Volume 83fL (79-100) Mean Corpuscular Hemoglobin 26pg (25-35) Mean Corpuscular Hemoglobin Concent 32g/dL (31-37) Red Cell Distribution Width 16.9% (11.5-14.5) Platelet Count 364x10^3/uL (140-400) Neutrophils (%) (Auto) 88% (31-73) Lymphocytes (%) (Auto) 9% (24-48) Monocytes (%) (Auto) 3% (0-9) Eosinophils (%) (Auto) 0% (0-3) Basophils (%) (Auto) 0% (0-3) Neutrophils # (Auto) 10.4x10^3uL (1.8-7.7) Lymphocytes # (Auto) 1.0x10^3/uL (1.0-4.8) Monocytes # (Auto) 0.4x10^3/uL (0.0-1.1) Eosinophils # (Auto) 0.0x10^3/uL (0.0-0.7) Basophils # (Auto) 0.0x10^3/uL (0.0-0.2) Segmented Neutrophils % 82% (35-66) Band Neutrophils % 1% (0-9) Lymphocytes % 13% (24-48) Monocytes % 4% (0-10) Toxic Granulation Slight Toxic Vacuolation Slight Platelet Estimate Adequate (ADEQUATE) Prothrombin Time 14.4SEC (11.7-14.0) Prothromb Time International Ratio 1.2 (0.8-1.1) Sodium Level 147mmol/L (136-145) Potassium Level 4.1mmol/L (3.5-5.1) Chloride Level 109mmol/L (98-107) Carbon Dioxide Level 28mmol/L (21-32) Anion Gap 10 (6-14) Blood Urea Nitrogen 22mg/dL (7-20) Creatinine 1.1mg/dL (0.6-1.0) Estimated GFR (Cockcroft-Gault) 56.9 Glucose Level 112mg/dL (70-99) Calcium Level 9.6mg/dL (8.5-10.1) Magnesium Level 2.3mg/dL (1.8-2.4) Total Bilirubin 0.2mg/dL (0.2-1.0) Direct Bilirubin < 0.1mg/dL (0.0-0.2) Aspartate Amino Transf (AST/SGOT) 69U/L (15-37) Alanine Aminotransferase (ALT/SGPT) 49U/L (14-59) Alkaline Phosphatase 116U/L (46-116) Creatine Kinase 139U/L (26-192) Creatine Kinase MB (Mass) 6.8ng/mL (0.0-3.6) Creatine Kinase MB Relative Index 4.9% (0-4) Troponin I Quantitative 0.031ng/mL (0.000-0.055) EB-Gyf-L-Type Natriuretic Peptide 52pg/mL (0-449) Total Protein 6.9g/dL (6.4-8.2) Albumin 2.9g/dL (3.4-5.0) Lipase 575U/L (73-393) Thyroid Stimulating Hormone (TSH) 8.885uIU/mL (0.358-3.74) Urine Collection Type U cath Urine Color Yellow Urine Clarity Clear Urine pH 5.5 Urine Specific Burton 1.015 Urine Protein Negativemg/dL (NEG-TRACE) Urine Glucose (UA) Negativemg/dL (NEG) Urine Ketones (Stick) Negativemg/dL (NEG) Urine Blood Small (NEG) Urine Nitrite Negative (NEG) Urine Bilirubin Negative (NEG) Urine Urobilinogen Dipstick 0.2mg/dL (0.2 mg/dL) Urine Leukocyte Esterase Large (NEG) Urine RBC Occ/HPF (0-2) Urine WBC 11-20/HPF (0-4) Urine Squamous Epithelial Cells Few/LPF Urine Transitional Epithelial Cells Occ/LPF Urine Bacteria 0/HPF (0-FEW) Urine Hyaline Casts Occasional/HPF Urine Mucus Mod/LPF Urine Yeast Present/HPF D-Dimer (Karen) 0.46ug/mlFEU (0.00-0.50) Nasal Screen MRSA (PCR) Negative (Negative) Test 10/07/16 22:35 10/08/16 04:30 10/08/16 05:51 10/08/16 13:08 Troponin I Quantitative 0.035ng/mL (0.000-0.055) 0.028ng/mL (0.000-0.055) White Blood Count 11.1x10^3/uL (4.0-11.0) Red Blood Count 4.15x10^6/uL (3.50-5.40) Hemoglobin 10.6g/dL (12.0-15.5) Hematocrit 33.9% (36.0-47.0) Mean Corpuscular Volume 82fL (79-100) Mean Corpuscular Hemoglobin 26pg (25-35) Mean Corpuscular Hemoglobin Concent 31g/dL (31-37) Red Cell Distribution Width 17.1% (11.5-14.5) Platelet Count 350x10^3/uL (140-400) Neutrophils (%) (Auto) 88% (31-73) Lymphocytes (%) (Auto) 7% (24-48) Monocytes (%) (Auto) 5% (0-9) Eosinophils (%) (Auto) 0% (0-3) Basophils (%) (Auto) 0% (0-3) Neutrophils # (Auto) 9.7x10^3uL (1.8-7.7) Lymphocytes # (Auto) 0.7x10^3/uL (1.0-4.8) Monocytes # (Auto) 0.6x10^3/uL (0.0-1.1) Eosinophils # (Auto) 0.0x10^3/uL (0.0-0.7) Basophils # (Auto) 0.0x10^3/uL (0.0-0.2) Sodium Level 149mmol/L (136-145) Potassium Level 4.3mmol/L (3.5-5.1) Chloride Level 111mmol/L (98-107) Carbon Dioxide Level 26mmol/L (21-32) Anion Gap 12 (6-14) Blood Urea Nitrogen 21mg/dL (7-20) Creatinine 1.0mg/dL (0.6-1.0) Estimated GFR (Cockcroft-Gault) 63.5 Glucose Level 68mg/dL (70-99) Calcium Level 9.7mg/dL (8.5-10.1) Triglycerides Level 54mg/dL (0-150) Cholesterol Level 158mg/dL (0-200) LDL Cholesterol, Calculated 64mg/dL (0-100) VLDL Cholesterol, Calculated 11mg/dL (0-40) HDL Cholesterol 83mg/dL (40-60) Cholesterol/HDL Ratio 1.9 Amylase Level 111U/L (25-115) Lipase 675U/L (73-393) Glucose (Fingerstick) 70mg/dL (70-99) 80mg/dL (70-99) Test 10/09/16 04:30 White Blood Count 11.5x10^3/uL (4.0-11.0) Red Blood Count 3.75x10^6/uL (3.50-5.40) Hemoglobin 9.6g/dL (12.0-15.5) Hematocrit 30.3% (36.0-47.0) Mean Corpuscular Volume 81fL (79-100) Mean Corpuscular Hemoglobin 26pg (25-35) Mean Corpuscular Hemoglobin Concent 32g/dL (31-37) Red Cell Distribution Width 16.8% (11.5-14.5) Platelet Count 289x10^3/uL (140-400) Neutrophils (%) (Auto) 77% (31-73) Lymphocytes (%) (Auto) 13% (24-48) Monocytes (%) (Auto) 9% (0-9) Eosinophils (%) (Auto) 0% (0-3) Basophils (%) (Auto) 0% (0-3) Neutrophils # (Auto) 8.9x10^3uL (1.8-7.7) Lymphocytes # (Auto) 1.5x10^3/uL (1.0-4.8) Monocytes # (Auto) 1.0x10^3/uL (0.0-1.1) Eosinophils # (Auto) 0.0x10^3/uL (0.0-0.7) Basophils # (Auto) 0.0x10^3/uL (0.0-0.2) Sodium Level 148mmol/L (136-145) Potassium Level 3.9mmol/L (3.5-5.1) Chloride Level 110mmol/L (98-107) Carbon Dioxide Level 27mmol/L (21-32) Anion Gap 11 (6-14) Blood Urea Nitrogen 20mg/dL (7-20) Creatinine 1.3mg/dL (0.6-1.0) Estimated GFR (Cockcroft-Gault) 46.9 Glucose Level 86mg/dL (70-99) Calcium Level 9.2mg/dL (8.5-10.1) Total Bilirubin 0.2mg/dL (0.2-1.0) Direct Bilirubin < 0.1mg/dL (0.0-0.2) Aspartate Amino Transf (AST/SGOT) 83U/L (15-37) Alanine Aminotransferase (ALT/SGPT) 41U/L (14-59) Alkaline Phosphatase 108U/L (46-116) Total Protein 6.1g/dL (6.4-8.2) Albumin 2.5g/dL (3.4-5.0) Amylase Level 92U/L (25-115) Lipase 176U/L (73-393) Laboratory Tests Test 10/08/16 13:08 10/09/16 04:30 Glucose (Fingerstick) 80mg/dL (70-99) White Blood Count 11.5x10^3/uL (4.0-11.0) Red Blood Count 3.75x10^6/uL (3.50-5.40) Hemoglobin 9.6g/dL (12.0-15.5) Hematocrit 30.3% (36.0-47.0) Mean Corpuscular Volume 81fL (79-100) Mean Corpuscular Hemoglobin 26pg (25-35) Mean Corpuscular Hemoglobin Concent 32g/dL (31-37) Red Cell Distribution Width 16.8% (11.5-14.5) Platelet Count 289x10^3/uL (140-400) Neutrophils (%) (Auto) 77% (31-73) Lymphocytes (%) (Auto) 13% (24-48) Monocytes (%) (Auto) 9% (0-9) Eosinophils (%) (Auto) 0% (0-3) Basophils (%) (Auto) 0% (0-3) Neutrophils # (Auto) 8.9x10^3uL (1.8-7.7) Lymphocytes # (Auto) 1.5x10^3/uL (1.0-4.8) Monocytes # (Auto) 1.0x10^3/uL (0.0-1.1) Eosinophils # (Auto) 0.0x10^3/uL (0.0-0.7) Basophils # (Auto) 0.0x10^3/uL (0.0-0.2) Sodium Level 148mmol/L (136-145) Potassium Level 3.9mmol/L (3.5-5.1) Chloride Level 110mmol/L (98-107) Carbon Dioxide Level 27mmol/L (21-32) Anion Gap 11 (6-14) Blood Urea Nitrogen 20mg/dL (7-20) Creatinine 1.3mg/dL (0.6-1.0) Estimated GFR (Cockcroft-Gault) 46.9 Glucose Level 86mg/dL (70-99) Calcium Level 9.2mg/dL (8.5-10.1) Total Bilirubin 0.2mg/dL (0.2-1.0) Direct Bilirubin < 0.1mg/dL (0.0-0.2) Aspartate Amino Transf (AST/SGOT) 83U/L (15-37) Alanine Aminotransferase (ALT/SGPT) 41U/L (14-59) Alkaline Phosphatase 108U/L (46-116) Total Protein 6.1g/dL (6.4-8.2) Albumin 2.5g/dL (3.4-5.0) Amylase Level 92U/L (25-115) Lipase 176U/L (73-393) Medications Active Scripts Medications Dose Route/Sig Days Date Category Levaquin (Levofloxacin) 500 Mg Tablet 1 Tab PO DAILY 09/22/16 Rx Aricept (Donepezil Hcl) 10 Mg Tablet 1 Tab PO QHS 05/19/16 Reported Cozaar (Losartan Potassium) 100 Mg Tablet 100 Mg PO DAILY 05/19/16 Reported Namenda Xr (Memantine Hcl) 28 Mg Cap.spr.24 28 Mg PO DAILY 05/19/16 Reported Norvasc (Amlodipine Besylate) 5 Mg Tablet 1 Tab PO DAILY 05/19/16 Reported Lovastatin 40 Mg Tablet 1 Tab PO DAILY 05/19/16 Reported Acetaminophen 500 Mg Tablet 1 Tab PO QID 05/19/16 Reported Duoneb 0.5-3(2.5) Mg/3 Ml (Albuterol/Ipratropium) 3 Ml Ampul.neb 3 Ml NEB QID 05/19/16 Reported Seroquel (Quetiapine Fumarate) 25 Mg Tablet 1 Tab PO QHS PRN 05/19/16 Reported Aspirin 81 Mg Tab.chew 1 Tab PO DAILY 05/19/16 Reported Centrum Silver Tablet (Multivits-Min/Fa/Lycopene/Lut) 1 Each Tablet 1 Each PO DAILY 05/19/[address] of chest reviewed. 1. Abnormal material in the left lower lobe bronchus probably due to inflammatory debris, although a neoplastic etiology cannot be excluded. There is associated bronchiectasis and apparent mucus plugging in the left lower lobe. Chronic infection or allergic aspergillosis are possibilities. 2. 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 Impression . 1. Abnormal CT of the chest revealing left lower lobe debris, suspect mucous plugging. The patient has never smoked. There has been no history given of hemoptysis. 2. Possible aspiration pneumonia. 3. Metabolic toxic encephalopathy. 4. Severe Alzheimer's dementia. 5. Hyponatremia. 6. Chronic kidney disease. Plan . PLAN: 1. Recommend to continue current IV antibiotics. 2. Case discussed with family members at the bedside by dr caban. They do not wish to be more aggressive than just treating a pneumonia, they declined bronchoscopy and/or repeat CT of the chest. bronchodilator add ics discussed w FABIOLA Pittman MD Oct 09, 2016 09:07
--- NOTE | 2016-10-09 09:26 | PDOC ---
G I PROGRESS NOTE Subjective Some brighter today. Will converse. Denies pain. Physical Exam Lungs clear. RRR Abdomen soft, not tender nor distended. Review of Relevant I have reviewed the following items kamar (where applicable) has been applied. Labs Laboratory Tests Test 10/07/16 13:40 10/07/16 14:55 10/07/16 19:25 10/07/16 22:00 White Blood Count 11.8x10^3/uL (4.0-11.0) Red Blood Count 4.08x10^6/uL (3.50-5.40) Hemoglobin 10.7g/dL (12.0-15.5) Hematocrit 33.7% (36.0-47.0) Mean Corpuscular Volume 83fL (79-100) Mean Corpuscular Hemoglobin 26pg (25-35) Mean Corpuscular Hemoglobin Concent 32g/dL (31-37) Red Cell Distribution Width 16.9% (11.5-14.5) Platelet Count 364x10^3/uL (140-400) Neutrophils (%) (Auto) 88% (31-73) Lymphocytes (%) (Auto) 9% (24-48) Monocytes (%) (Auto) 3% (0-9) Eosinophils (%) (Auto) 0% (0-3) Basophils (%) (Auto) 0% (0-3) Neutrophils # (Auto) 10.4x10^3uL (1.8-7.7) Lymphocytes # (Auto) 1.0x10^3/uL (1.0-4.8) Monocytes # (Auto) 0.4x10^3/uL (0.0-1.1) Eosinophils # (Auto) 0.0x10^3/uL (0.0-0.7) Basophils # (Auto) 0.0x10^3/uL (0.0-0.2) Segmented Neutrophils % 82% (35-66) Band Neutrophils % 1% (0-9) Lymphocytes % 13% (24-48) Monocytes % 4% (0-10) Toxic Granulation Slight Toxic Vacuolation Slight Platelet Estimate Adequate (ADEQUATE) Prothrombin Time 14.4SEC (11.7-14.0) Prothromb Time International Ratio 1.2 (0.8-1.1) Sodium Level 147mmol/L (136-145) Potassium Level 4.1mmol/L (3.5-5.1) Chloride Level 109mmol/L (98-107) Carbon Dioxide Level 28mmol/L (21-32) Anion Gap 10 (6-14) Blood Urea Nitrogen 22mg/dL (7-20) Creatinine 1.1mg/dL (0.6-1.0) Estimated GFR (Cockcroft-Gault) 56.9 Glucose Level 112mg/dL (70-99) Calcium Level 9.6mg/dL (8.5-10.1) Magnesium Level 2.3mg/dL (1.8-2.4) Total Bilirubin 0.2mg/dL (0.2-1.0) Direct Bilirubin < 0.1mg/dL (0.0-0.2) Aspartate Amino Transf (AST/SGOT) 69U/L (15-37) Alanine Aminotransferase (ALT/SGPT) 49U/L (14-59) Alkaline Phosphatase 116U/L (46-116) Creatine Kinase 139U/L (26-192) Creatine Kinase MB (Mass) 6.8ng/mL (0.0-3.6) Creatine Kinase MB Relative Index 4.9% (0-4) Troponin I Quantitative 0.031ng/mL (0.000-0.055) VG-Olw-O-Type Natriuretic Peptide 52pg/mL (0-449) Total Protein 6.9g/dL (6.4-8.2) Albumin 2.9g/dL (3.4-5.0) Lipase 575U/L (73-393) Thyroid Stimulating Hormone (TSH) 8.885uIU/mL (0.358-3.74) Urine Collection Type U cath Urine Color Yellow Urine Clarity Clear Urine pH 5.5 Urine Specific [place] 1.015 Urine Protein Negativemg/dL (NEG-TRACE) Urine Glucose (UA) Negativemg/dL (NEG) Urine Ketones (Stick) Negativemg/dL (NEG) Urine Blood Small (NEG) Urine Nitrite Negative (NEG) Urine Bilirubin Negative (NEG) Urine Urobilinogen Dipstick 0.2mg/dL (0.2 mg/dL) Urine Leukocyte Esterase Large (NEG) Urine RBC Occ/HPF (0-2) Urine WBC 11-20/HPF (0-4) Urine Squamous Epithelial Cells Few/LPF Urine Transitional Epithelial Cells Occ/LPF Urine Bacteria 0/HPF (0-FEW) Urine Hyaline Casts Occasional/HPF Urine Mucus Mod/LPF Urine Yeast Present/HPF D-Dimer (Karen) 0.46ug/mlFEU (0.00-0.50) Nasal Screen MRSA (PCR) Negative (Negative) Test 10/07/16 22:35 10/08/16 04:30 10/08/16 05:51 10/08/16 13:08 Troponin I Quantitative 0.035ng/mL (0.000-0.055) 0.028ng/mL (0.000-0.055) White Blood Count 11.1x10^3/uL (4.0-11.0) Red Blood Count 4.15x10^6/uL (3.50-5.40) Hemoglobin 10.6g/dL (12.0-15.5) Hematocrit 33.9% (36.0-47.0) Mean Corpuscular Volume 82fL (79-100) Mean Corpuscular Hemoglobin 26pg (25-35) Mean Corpuscular Hemoglobin Concent 31g/dL (31-37) Red Cell Distribution Width 17.1% (11.5-14.5) Platelet Count 350x10^3/uL (140-400) Neutrophils (%) (Auto) 88% (31-73) Lymphocytes (%) (Auto) 7% (24-48) Monocytes (%) (Auto) 5% (0-9) Eosinophils (%) (Auto) 0% (0-3) Basophils (%) (Auto) 0% (0-3) Neutrophils # (Auto) 9.7x10^3uL (1.8-7.7) Lymphocytes # (Auto) 0.7x10^3/uL (1.0-4.8) Monocytes # (Auto) 0.6x10^3/uL (0.0-1.1) Eosinophils # (Auto) 0.0x10^3/uL (0.0-0.7) Basophils # (Auto) 0.0x10^3/uL (0.0-0.2) Sodium Level 149mmol/L (136-145) Potassium Level 4.3mmol/L (3.5-5.1) Chloride Level 111mmol/L (98-107) Carbon Dioxide Level 26mmol/L (21-32) Anion Gap 12 (6-14) Blood Urea Nitrogen 21mg/dL (7-20) Creatinine 1.0mg/dL (0.6-1.0) Estimated GFR (Cockcroft-Gault) 63.5 Glucose Level 68mg/dL (70-99) Calcium Level 9.7mg/dL (8.5-10.1) Triglycerides Level 54mg/dL (0-150) Cholesterol Level 158mg/dL (0-200) LDL Cholesterol, Calculated 64mg/dL (0-100) VLDL Cholesterol, Calculated 11mg/dL (0-40) HDL Cholesterol 83mg/dL (40-60) Cholesterol/HDL Ratio 1.9 Amylase Level 111U/L (25-115) Lipase 675U/L (73-393) Glucose (Fingerstick) 70mg/dL (70-99) 80mg/dL (70-99) Test 10/09/16 04:30 White Blood Count 11.5x10^3/uL (4.0-11.0) Red Blood Count 3.75x10^6/uL (3.50-5.40) Hemoglobin 9.6g/dL (12.0-15.5) Hematocrit 30.3% (36.0-47.0) Mean Corpuscular Volume 81fL (79-100) Mean Corpuscular Hemoglobin 26pg (25-35) Mean Corpuscular Hemoglobin Concent 32g/dL (31-37) Red Cell Distribution Width 16.8% (11.5-14.5) Platelet Count 289x10^3/uL (140-400) Neutrophils (%) (Auto) 77% (31-73) Lymphocytes (%) (Auto) 13% (24-48) Monocytes (%) (Auto) 9% (0-9) Eosinophils (%) (Auto) 0% (0-3) Basophils (%) (Auto) 0% (0-3) Neutrophils # (Auto) 8.9x10^3uL (1.8-7.7) Lymphocytes # (Auto) 1.5x10^3/uL (1.0-4.8) Monocytes # (Auto) 1.0x10^3/uL (0.0-1.1) Eosinophils # (Auto) 0.0x10^3/uL (0.0-0.7) Basophils # (Auto) 0.0x10^3/uL (0.0-0.2) Sodium Level 148mmol/L (136-145) Potassium Level 3.9mmol/L (3.5-5.1) Chloride Level 110mmol/L (98-107) Carbon Dioxide Level 27mmol/L (21-32) Anion Gap 11 (6-14) Blood Urea Nitrogen 20mg/dL (7-20) Creatinine 1.3mg/dL (0.6-1.0) Estimated GFR (Cockcroft-Gault) 46.9 Glucose Level 86mg/dL (70-99) Calcium Level 9.2mg/dL (8.5-10.1) Total Bilirubin 0.2mg/dL (0.2-1.0) Direct Bilirubin < 0.1mg/dL (0.0-0.2) Aspartate Amino Transf (AST/SGOT) 83U/L (15-37) Alanine Aminotransferase (ALT/SGPT) 41U/L (14-59) Alkaline Phosphatase 108U/L (46-116) Total Protein 6.1g/dL (6.4-8.2) Albumin 2.5g/dL (3.4-5.0) Amylase Level 92U/L (25-115) Lipase 176U/L (73-393) Laboratory Tests Test 10/08/16 13:08 10/09/16 04:30 Glucose (Fingerstick) 80mg/dL (70-99) White Blood Count 11.5x10^3/uL (4.0-11.0) Red Blood Count 3.75x10^6/uL (3.50-5.40) Hemoglobin 9.6g/dL (12.0-15.5) Hematocrit 30.3% (36.0-47.0) Mean Corpuscular Volume 81fL (79-100) Mean Corpuscular Hemoglobin 26pg (25-35) Mean Corpuscular Hemoglobin Concent 32g/dL (31-37) Red Cell Distribution Width 16.8% (11.5-14.5) Platelet Count 289x10^3/uL (140-400) Neutrophils (%) (Auto) 77% (31-73) Lymphocytes (%) (Auto) 13% (24-48) Monocytes (%) (Auto) 9% (0-9) Eosinophils (%) (Auto) 0% (0-3) Basophils (%) (Auto) 0% (0-3) Neutrophils # (Auto) 8.9x10^3uL (1.8-7.7) Lymphocytes # (Auto) 1.5x10^3/uL (1.0-4.8) Monocytes # (Auto) 1.0x10^3/uL (0.0-1.1) Eosinophils # (Auto) 0.0x10^3/uL (0.0-0.7) Basophils # (Auto) 0.0x10^3/uL (0.0-0.2) Sodium Level 148mmol/L (136-145) Potassium Level 3.9mmol/L (3.5-5.1) Chloride Level 110mmol/L (98-107) Carbon Dioxide Level 27mmol/L (21-32) Anion Gap 11 (6-14) Blood Urea Nitrogen 20mg/dL (7-20) Creatinine 1.3mg/dL (0.6-1.0) Estimated GFR (Cockcroft-Gault) 46.9 Glucose Level 86mg/dL (70-99) Calcium Level 9.2mg/dL (8.5-10.1) Total Bilirubin 0.2mg/dL (0.2-1.0) Direct Bilirubin < 0.1mg/dL (0.0-0.2) Aspartate Amino Transf (AST/SGOT) 83U/L (15-37) Alanine Aminotransferase (ALT/SGPT) 41U/L (14-59) Alkaline Phosphatase 108U/L (46-116) Total Protein 6.1g/dL (6.4-8.2) Albumin 2.5g/dL (3.4-5.0) Amylase Level 92U/L (25-115) Lipase 176U/L (73-393) Medications Current Medications Ondansetron HCl 4 mg 4 mg PRN Q8HRS PRN IV NAUSEA/VOMITING; Start 10/07/16 at 16:45; Stop 10/08/16 at 16:44; Status DC Sodium Chloride (Iv Sodium Chloride 0.9% 1000ml Bag) 1,000 ml @ 125 mls/hr Q8H IV Last administered on 10/07/16 16:47; Start 10/07/16 at 16:32; Stop at 13:10; Status DC Acetaminophen 650 mg 650 mg PRN Q4HRS PRN PO FEVER; Start 10/07/16 at 16:45; Stop 10/08/16 at 16:44; Status DC Ceftriaxone Sodium (Rocephin 1gm Ivpb For Omni) 50 ml @ 100 mls/hr 1X ONCE IV Last administered on 10/07/16 17:57; Start 10/07/16 at 17:30; Stop 10/07/16 at 17:59; Status DC Acetaminophen (Tylenol) 650 mg PRN Q4HRS PRN PO MILD PAIN / TEMP; Start at 18:00 Amlodipine Besylate (Norvasc) 5 mg DAILY PO ; Start 10/08/16 at 09:00; Stop at 13:10; Status DC Donepezil HCl (Aricept) 10 mg DAILY PO ; Start 10/08/16 at 09:00 Aspirin (Children'S Aspirin) 81 mg DAILY PO ; Start 10/08/16 at 09:00 Multivitamins (Thera M Plus) 1 tab DAILY PO ; Start 10/08/16 at 09:00 Albuterol/ Ipratropium (Duoneb) 3 ml PRN QID PRN NEB WHEEZING; Start 10/07/16 at 18:00; Stop 10/08/16 at 13:14; Status DC Atorvastatin Calcium (Lipitor) 10 mg QHS PO Last administered on 10/07/16 21: 48; Start 10/07/16 at 21:00 Memantine (Namenda) 10 mg BID PO Last administered on 10/07/16 21:49; Start at 21:00 Losartan Potassium (Cozaar) 100 mg DAILY PO ; Start 10/08/16 at 09:00 Magnesium Hydroxide 2400 mg 2,400 mg PRN DAILY PRN PO CONSTIPATION; Start 10/07 at 18:00 Ceftriaxone Sodium 1 gm/ Sodium Chloride 50 ml @ 100 mls/hr Q24H IV ; Start at 18:00; Stop 10/08/16 at 18:00; Status DC Dextrose 1,000 ml @ 75 mls/hr [id number] IV Last administered on 10/09/16 07:27 ; Start 10/07/16 at 18:30 Levothyroxine Sodium (Synthroid) 75 mcg DAILY07 PO ; Start 10/08/16 at 07:00 Albuterol/ Ipratropium 3 ml 3 ml RTQID NEB Last administered on 10/08/16 19:30 ; Start 10/08/16 at 16:00 Piperacillin Sod/ Tazobactam Sod 3.375 gm/Sodium Chloride 50 ml @ 100 mls/hr Q8HRS IV Last administered on 10/09/16 07:30; Start 10/08/16 at 14:00 Vancomycin HCl/ Sodium Chloride (Iv Sodium Chloride 0.9% 250ml) 250 ml @ 250 mls/hr Q24H IV ; Start 10/09/16 at 14:00 Vancomycin HCl 1 each 1 each PRN DAILY PRN MC SEE COMMENTS Last administered on 10/08/16 13:20; Start 10/08/16 at 13:00 Vancomycin HCl/ Sodium Chloride (Iv Sodium Chloride 0.9% 500ml Bag) 500 ml @ 250 mls/hr 1X ONCE IV Last administered on 10/08/16 14:58; Start 10/08/16 at 14:00; Stop 10/08/16 at 15:59; Status DC Albuterol Sulfate (Ventolin Neb Soln) 2.5 mg PRN QID PRN NEB WHEEZING; Start at 13:15 Budesonide (Pulmicort) 0.5 mg RTBID NEB ; Start 10/09/16 at 09:30 Active Scripts Active Levaquin (Levofloxacin) 500 Mg Tablet 1 Tab PO DAILY Reported Aricept (Donepezil Hcl) 10 Mg Tablet 1 Tab PO QHS Cozaar (Losartan Potassium) 100 Mg Tablet 100 Mg PO DAILY Namenda Xr (Memantine Hcl) 28 Mg Cap.spr.24 28 Mg PO DAILY Norvasc (Amlodipine Besylate) 5 Mg Tablet 1 Tab PO DAILY Lovastatin 40 Mg Tablet 1 Tab PO DAILY Acetaminophen 500 Mg Tablet 1 Tab PO QID Duoneb 0.5-3(2.5) Mg/3 Ml (Albuterol/Ipratropium) 3 Ml Ampul.neb 3 Ml NEB QID Seroquel (Quetiapine Fumarate) 25 Mg Tablet 1 Tab PO QHS PRN Aspirin 81 Mg Tab.chew 1 Tab PO DAILY Centrum Silver Tablet (Multivits-Min/Fa/Lycopene/Lut) 1 Each Tablet 1 Each PO DAILY Vitals/I & O Vital Sign - Last 24 Hours 10/08/16 10/08/16 10/08/16 10/08/16 11:00 14:58 15:45 19:00 Temp 97.5 98.1 98.8 97.5 98.1 98.8 Pulse 94 105 103 Resp 14 14 16 B/P 119/54 111/55 75/36 Pulse Ox 97 96 95 92 O2 Delivery Room Air Room Air Room Air Room Air 10/08/16 10/08/16 10/08/16 10/09/16 19:32 20:00 23:00 03:00 Temp 99.5 97.9 99.5 97.9 Pulse 121 116 Resp 16 18 B/P 145/86 116/73 Pulse Ox 92 91 96 O2 Delivery Room Air Room Air Room Air Room Air O2 Flow Rate 2.0 10/09/16 07:00 Temp 98.8 98.8 Pulse 92 Resp 18 B/P 125/72 Pulse Ox 97 O2 Delivery Room Air Intake and Output 10/08/16 10/08/16 10/09/16 15:00 23:00 07:00 Intake Total 80 ml Balance 80 ml Problem List Problems Medical Problems: (1) Syncope Status: Acute Assessment Elevated lipase, but no pancreatitis. Syncope. Plan of Care: Continue current Tx, Mgmt Plan of Care Note OK with me to feed/advance diet. I'm off the weekend. Dr. Overton available if needed. ISA ENCARNACION MD Oct 09, 2016 09:26
[2016-10-09] MEDS: IPRATRPIUM/ALBUTEROL 0.5/2.5MG 3 ML NEBU. NEB SCH ×4 (09:35→20:49)
--- NOTE | 2016-10-09 10:21 | PDOC ---
Infectious Disease Note ROS ROS GEN: Denies fevers, chills, sweats HEENT: Denies blurred vision, sore throat CV: Denies chest pain RESP: Denies shortness of air, cough GI: Denies n/v/d NEURO: Denies confusion, dizziness MSK: Denies weakness, joint pain/swelling Vital Sign Vital Signs Vital Signs Date Time Temp Pulse Resp B/P Pulse Ox O2 Delivery O2 Flow Rate FiO2 10/09/16 09:36 98 Room Air 10/09/16 07:00 98.8 92 18 125/72 98.8 10/08/16 20:00 2.0 Physical Exam PHYSICAL EXAM GENERAL: NAD, Alert HEENT: PERRL, OC/OP NECK: Supple, no JVD, no LN LUNGS: Clear HEART: S1S2, no gallop, no murmur ABD: Soft, NT, no organomegaly, no rebound EXT: No edema, no cyanosis NUCLEAR SCIENTIST: Alert, oriented x 3, no focal neurologic deficit SKIN: No rash IV: ok Labs Lab Laboratory Tests Test 10/08/16 13:08 10/09/16 04:30 Glucose (Fingerstick) 80mg/dL (70-99) White Blood Count 11.5x10^3/uL (4.0-11.0) Red Blood Count 3.75x10^6/uL (3.50-5.40) Hemoglobin 9.6g/dL (12.0-15.5) Hematocrit 30.3% (36.0-47.0) Mean Corpuscular Volume 81fL (79-100) Mean Corpuscular Hemoglobin 26pg (25-35) Mean Corpuscular Hemoglobin Concent 32g/dL (31-37) Red Cell Distribution Width 16.8% (11.5-14.5) Platelet Count 289x10^3/uL (140-400) Neutrophils (%) (Auto) 77% (31-73) Lymphocytes (%) (Auto) 13% (24-48) Monocytes (%) (Auto) 9% (0-9) Eosinophils (%) (Auto) 0% (0-3) Basophils (%) (Auto) 0% (0-3) Neutrophils # (Auto) 8.9x10^3uL (1.8-7.7) Lymphocytes # (Auto) 1.5x10^3/uL (1.0-4.8) Monocytes # (Auto) 1.0x10^3/uL (0.0-1.1) Eosinophils # (Auto) 0.0x10^3/uL (0.0-0.7) Basophils # (Auto) 0.0x10^3/uL (0.0-0.2) Sodium Level 148mmol/L (136-145) Potassium Level 3.9mmol/L (3.5-5.1) Chloride Level 110mmol/L (98-107) Carbon Dioxide Level 27mmol/L (21-32) Anion Gap 11 (6-14) Blood Urea Nitrogen 20mg/dL (7-20) Creatinine 1.3mg/dL (0.6-1.0) Estimated GFR (Cockcroft-Gault) 46.9 Glucose Level 86mg/dL (70-99) Calcium Level 9.2mg/dL (8.5-10.1) Total Bilirubin 0.2mg/dL (0.2-1.0) Direct Bilirubin < 0.1mg/dL (0.0-0.2) Aspartate Amino Transf (AST/SGOT) 83U/L (15-37) Alanine Aminotransferase (ALT/SGPT) 41U/L (14-59) Alkaline Phosphatase 108U/L (46-116) Total Protein 6.1g/dL (6.4-8.2) Albumin 2.5g/dL (3.4-5.0) Amylase Level 92U/L (25-115) Lipase 176U/L (73-393) Objective Assessment Hypothermia - improved Leukocytosis PAUL ? Aspiration with abnormal CT scan - Bronch declined S/p syncope -compressions Severe Dementia Plan Plan of Care Cont current abx F/u labs and cult ? Speech and swallow eval D/w family Thank you # [id number] JENNIFER YEE MD Oct 09, 2016 10:21
--- NOTE | 2016-10-09 10:49 | PDOC ---
PROGRESS NOTES Subjective Subjective ate some jello. still lethargic. eyes closed. ct head negative. arterial doppler shows PAD. discussed with family who will consider hospice. lab reviewed. will order PPN. coughs and swallows sputum per family.discussed with dr. west notes short bursts of afib with rvr. not a coumadin candidate. slow notes that she has syncope episodes with sitting for 30 min. she recommends metoprolol and florinef. Objective Objective Vital Signs Date Time Temp Pulse Resp B/P Pulse Ox O2 Delivery O2 Flow Rate FiO2 10/09/16 09:36 98 Room Air 10/09/16 07:00 98.8 92 18 125/72 98.8 10/08/16 20:00 2.0 Intake and Output 10/09/16 07:00 Intake Total 80 ml Balance 80 ml Intake Oral 30 ml IV Total 50 ml # Voids 3 Physical Exam Abdomen: Soft Heart: Regular rate, Normal S1, Normal S2 Extremities: No edema General: Alert HEENT: Atraumatic Lungs: Other (clear anteriorly) Psych/Mental Status: Other (sleepy) Skin: No rashes Assessment Assessment Problems Medical Problems:1. Syncopal episode. 2. Hypernatremia. 3. Pyuria. 4. aspiration pneumonia 6. Hyperlipidemia. 7. Alzheimer disease. 8. Hyperlipidemia. 9. Chronic kidney disease stage III. 10. Elevated lipase now normal PAD left ankle ulcer metabolic encephalopathy mild protein calorie malnutrition subclinical hypothyroidism (1) Syncope Status: Acute Plan Plan of Care start PPN consult dr. jones consider hospice continue iv antibiotics nebulizer rx start metoprolol start forinef Comment Review of Relevant I have reviewed the following items kamar (where applicable) has been applied. Labs Laboratory Tests Test 10/07/16 13:40 10/07/16 14:55 10/07/16 19:25 10/07/16 22:00 White Blood Count 11.8x10^3/uL (4.0-11.0) Red Blood Count 4.08x10^6/uL (3.50-5.40) Hemoglobin 10.7g/dL (12.0-15.5) Hematocrit 33.7% (36.0-47.0) Mean Corpuscular Volume 83fL (79-100) Mean Corpuscular Hemoglobin 26pg (25-35) Mean Corpuscular Hemoglobin Concent 32g/dL (31-37) Red Cell Distribution Width 16.9% (11.5-14.5) Platelet Count 364x10^3/uL (140-400) Neutrophils (%) (Auto) 88% (31-73) Lymphocytes (%) (Auto) 9% (24-48) Monocytes (%) (Auto) 3% (0-9) Eosinophils (%) (Auto) 0% (0-3) Basophils (%) (Auto) 0% (0-3) Neutrophils # (Auto) 10.4x10^3uL (1.8-7.7) Lymphocytes # (Auto) 1.0x10^3/uL (1.0-4.8) Monocytes # (Auto) 0.4x10^3/uL (0.0-1.1) Eosinophils # (Auto) 0.0x10^3/uL (0.0-0.7) Basophils # (Auto) 0.0x10^3/uL (0.0-0.2) Segmented Neutrophils % 82% (35-66) Band Neutrophils % 1% (0-9) Lymphocytes % 13% (24-48) Monocytes % 4% (0-10) Toxic Granulation Slight Toxic Vacuolation Slight Platelet Estimate Adequate (ADEQUATE) Prothrombin Time 14.4SEC (11.7-14.0) Prothromb Time International Ratio 1.2 (0.8-1.1) Sodium Level 147mmol/L (136-145) Potassium Level 4.1mmol/L (3.5-5.1) Chloride Level 109mmol/L (98-107) Carbon Dioxide Level 28mmol/L (21-32) Anion Gap 10 (6-14) Blood Urea Nitrogen 22mg/dL (7-20) Creatinine 1.1mg/dL (0.6-1.0) Estimated GFR (Cockcroft-Gault) 56.9 Glucose Level 112mg/dL (70-99) Calcium Level 9.6mg/dL (8.5-10.1) Magnesium Level 2.3mg/dL (1.8-2.4) Total Bilirubin 0.2mg/dL (0.2-1.0) Direct Bilirubin < 0.1mg/dL (0.0-0.2) Aspartate Amino Transf (AST/SGOT) 69U/L (15-37) Alanine Aminotransferase (ALT/SGPT) 49U/L (14-59) Alkaline Phosphatase 116U/L (46-116) Creatine Kinase 139U/L (26-192) Creatine Kinase MB (Mass) 6.8ng/mL (0.0-3.6) Creatine Kinase MB Relative Index 4.9% (0-4) Troponin I Quantitative 0.031ng/mL (0.000-0.055) AM-Eoz-P-Type Natriuretic Peptide 52pg/mL (0-449) Total Protein 6.9g/dL (6.4-8.2) Albumin 2.9g/dL (3.4-5.0) Lipase 575U/L (73-393) Thyroid Stimulating Hormone (TSH) 8.885uIU/mL (0.358-3.74) Urine Collection Type U cath Urine Color Yellow Urine Clarity Clear Urine pH 5.5 Urine Specific Delta 1.015 Urine Protein Negativemg/dL (NEG-TRACE) Urine Glucose (UA) Negativemg/dL (NEG) Urine Ketones (Stick) Negativemg/dL (NEG) Urine Blood Small (NEG) Urine Nitrite Negative (NEG) Urine Bilirubin Negative (NEG) Urine Urobilinogen Dipstick 0.2mg/dL (0.2 mg/dL) Urine Leukocyte Esterase Large (NEG) Urine RBC Occ/HPF (0-2) Urine WBC 11-20/HPF (0-4) Urine Squamous Epithelial Cells Few/LPF Urine Transitional Epithelial Cells Occ/LPF Urine Bacteria 0/HPF (0-FEW) Urine Hyaline Casts Occasional/HPF Urine Mucus Mod/LPF Urine Yeast Present/HPF D-Dimer (Karen) 0.46ug/mlFEU (0.00-0.50) Nasal Screen MRSA (PCR) Negative (Negative) Test 10/07/16 22:35 10/08/16 04:30 10/08/16 05:51 10/08/16 13:08 Troponin I Quantitative 0.035ng/mL (0.000-0.055) 0.028ng/mL (0.000-0.055) White Blood Count 11.1x10^3/uL (4.0-11.0) Red Blood Count 4.15x10^6/uL (3.50-5.40) Hemoglobin 10.6g/dL (12.0-15.5) Hematocrit 33.9% (36.0-47.0) Mean Corpuscular Volume 82fL (79-100) Mean Corpuscular Hemoglobin 26pg (25-35) Mean Corpuscular Hemoglobin Concent 31g/dL (31-37) Red Cell Distribution Width 17.1% (11.5-14.5) Platelet Count 350x10^3/uL (140-400) Neutrophils (%) (Auto) 88% (31-73) Lymphocytes (%) (Auto) 7% (24-48) Monocytes (%) (Auto) 5% (0-9) Eosinophils (%) (Auto) 0% (0-3) Basophils (%) (Auto) 0% (0-3) Neutrophils # (Auto) 9.7x10^3uL (1.8-7.7) Lymphocytes # (Auto) 0.7x10^3/uL (1.0-4.8) Monocytes # (Auto) 0.6x10^3/uL (0.0-1.1) Eosinophils # (Auto) 0.0x10^3/uL (0.0-0.7) Basophils # (Auto) 0.0x10^3/uL (0.0-0.2) Sodium Level 149mmol/L (136-145) Potassium Level 4.3mmol/L (3.5-5.1) Chloride Level 111mmol/L (98-107) Carbon Dioxide Level 26mmol/L (21-32) Anion Gap 12 (6-14) Blood Urea Nitrogen 21mg/dL (7-20) Creatinine 1.0mg/dL (0.6-1.0) Estimated GFR (Cockcroft-Gault) 63.5 Glucose Level 68mg/dL (70-99) Calcium Level 9.7mg/dL (8.5-10.1) Triglycerides Level 54mg/dL (0-150) Cholesterol Level 158mg/dL (0-200) LDL Cholesterol, Calculated 64mg/dL (0-100) VLDL Cholesterol, Calculated 11mg/dL (0-40) HDL Cholesterol 83mg/dL (40-60) Cholesterol/HDL Ratio 1.9 Amylase Level 111U/L (25-115) Lipase 675U/L (73-393) Glucose (Fingerstick) 70mg/dL (70-99) 80mg/dL (70-99) Test 10/09/16 04:30 White Blood Count 11.5x10^3/uL (4.0-11.0) Red Blood Count 3.75x10^6/uL (3.50-5.40) Hemoglobin 9.6g/dL (12.0-15.5) Hematocrit 30.3% (36.0-47.0) Mean Corpuscular Volume 81fL (79-100) Mean Corpuscular Hemoglobin 26pg (25-35) Mean Corpuscular Hemoglobin Concent 32g/dL (31-37) Red Cell Distribution Width 16.8% (11.5-14.5) Platelet Count 289x10^3/uL (140-400) Neutrophils (%) (Auto) 77% (31-73) Lymphocytes (%) (Auto) 13% (24-48) Monocytes (%) (Auto) 9% (0-9) Eosinophils (%) (Auto) 0% (0-3) Basophils (%) (Auto) 0% (0-3) Neutrophils # (Auto) 8.9x10^3uL (1.8-7.7) Lymphocytes # (Auto) 1.5x10^3/uL (1.0-4.8) Monocytes # (Auto) 1.0x10^3/uL (0.0-1.1) Eosinophils # (Auto) 0.0x10^3/uL (0.0-0.7) Basophils # (Auto) 0.0x10^3/uL (0.0-0.2) Sodium Level 148mmol/L (136-145) Potassium Level 3.9mmol/L (3.5-5.1) Chloride Level 110mmol/L (98-107) Carbon Dioxide Level 27mmol/L (21-32) Anion Gap 11 (6-14) Blood Urea Nitrogen 20mg/dL (7-20) Creatinine 1.3mg/dL (0.6-1.0) Estimated GFR (Cockcroft-Gault) 46.9 Glucose Level 86mg/dL (70-99) Calcium Level 9.2mg/dL (8.5-10.1) Total Bilirubin 0.2mg/dL (0.2-1.0) Direct Bilirubin < 0.1mg/dL (0.0-0.2) Aspartate Amino Transf (AST/SGOT) 83U/L (15-37) Alanine Aminotransferase (ALT/SGPT) 41U/L (14-59) Alkaline Phosphatase 108U/L (46-116) Total Protein 6.1g/dL (6.4-8.2) Albumin 2.5g/dL (3.4-5.0) Amylase Level 92U/L (25-115) Lipase 176U/L (73-393) Laboratory Tests Test 10/08/16 13:08 10/09/16 04:30 Glucose (Fingerstick) 80mg/dL (70-99) White Blood Count 11.5x10^3/uL (4.0-11.0) Red Blood Count 3.75x10^6/uL (3.50-5.40) Hemoglobin 9.6g/dL (12.0-15.5) Hematocrit 30.3% (36.0-47.0) Mean Corpuscular Volume 81fL (79-100) Mean Corpuscular Hemoglobin 26pg (25-35) Mean Corpuscular Hemoglobin Concent 32g/dL (31-37) Red Cell Distribution Width 16.8% (11.5-14.5) Platelet Count 289x10^3/uL (140-400) Neutrophils (%) (Auto) 77% (31-73) Lymphocytes (%) (Auto) 13% (24-48) Monocytes (%) (Auto) 9% (0-9) Eosinophils (%) (Auto) 0% (0-3) Basophils (%) (Auto) 0% (0-3) Neutrophils # (Auto) 8.9x10^3uL (1.8-7.7) Lymphocytes # (Auto) 1.5x10^3/uL (1.0-4.8) Monocytes # (Auto) 1.0x10^3/uL (0.0-1.1) Eosinophils # (Auto) 0.0x10^3/uL (0.0-0.7) Basophils # (Auto) 0.0x10^3/uL (0.0-0.2) Sodium Level 148mmol/L (136-145) Potassium Level 3.9mmol/L (3.5-5.1) Chloride Level 110mmol/L (98-107) Carbon Dioxide Level 27mmol/L (21-32) Anion Gap 11 (6-14) Blood Urea Nitrogen 20mg/dL (7-20) Creatinine 1.3mg/dL (0.6-1.0) Estimated GFR (Cockcroft-Gault) 46.9 Glucose Level 86mg/dL (70-99) Calcium Level 9.2mg/dL (8.5-10.1) Total Bilirubin 0.2mg/dL (0.2-1.0) Direct Bilirubin < 0.1mg/dL (0.0-0.2) Aspartate Amino Transf (AST/SGOT) 83U/L (15-37) Alanine Aminotransferase (ALT/SGPT) 41U/L (14-59) Alkaline Phosphatase 108U/L (46-116) Total Protein 6.1g/dL (6.4-8.2) Albumin 2.5g/dL (3.4-5.0) Amylase Level 92U/L (25-115) Lipase 176U/L (73-393) Medications Current Medications Ondansetron HCl 4 mg 4 mg PRN Q8HRS PRN IV NAUSEA/VOMITING; Start 10/07/16 at 16:45; Stop 10/08/16 at 16:44; Status DC Sodium Chloride (Iv Sodium Chloride 0.9% 1000ml Bag) 1,000 ml @ 125 mls/hr Q8H IV Last administered on 10/07/16 16:47; Start 10/07/16 at 16:32; Stop at 13:10; Status DC Acetaminophen 650 mg 650 mg PRN Q4HRS PRN PO FEVER; Start 10/07/16 at 16:45; Stop 10/08/16 at 16:44; Status DC Ceftriaxone Sodium (Rocephin 1gm Ivpb For Omni) 50 ml @ 100 mls/hr 1X ONCE IV Last administered on 10/07/16 17:57; Start 10/07/16 at 17:30; Stop 10/07/16 at 17:59; Status DC Acetaminophen (Tylenol) 650 mg PRN Q4HRS PRN PO MILD PAIN / TEMP; Start at 18:00 Amlodipine Besylate (Norvasc) 5 mg DAILY PO ; Start 10/08/16 at 09:00; Stop at 13:10; Status DC Donepezil HCl (Aricept) 10 mg DAILY PO ; Start 10/08/16 at 09:00 Aspirin (Children'S Aspirin) 81 mg DAILY PO ; Start 10/08/16 at 09:00 Multivitamins (Thera M Plus) 1 tab DAILY PO ; Start 10/08/16 at 09:00 Albuterol/ Ipratropium (Duoneb) 3 ml PRN QID PRN NEB WHEEZING; Start 10/07/16 at 18:00; Stop 10/08/16 at 13:14; Status DC Atorvastatin Calcium (Lipitor) 10 mg QHS PO Last administered on 10/07/16 21: 48; Start 10/07/16 at 21:00 Memantine (Namenda) 10 mg BID PO Last administered on 10/07/16 21:49; Start at 21:00 Losartan Potassium (Cozaar) 100 mg DAILY PO ; Start 10/08/16 at 09:00 Magnesium Hydroxide 2400 mg 2,400 mg PRN DAILY PRN PO CONSTIPATION; Start 10/07 at 18:00 Ceftriaxone Sodium 1 gm/ Sodium Chloride 50 ml @ 100 mls/hr Q24H IV ; Start at 18:00; Stop 10/08/16 at 18:00; Status DC Dextrose 1,000 ml @ 75 mls/hr [id number] IV Last administered on 10/09/16 07:27 ; Start 10/07/16 at 18:30 Levothyroxine Sodium (Synthroid) 75 mcg DAILY07 PO ; Start 10/08/16 at 07:00 Albuterol/ Ipratropium 3 ml 3 ml RTQID NEB Last administered on 10/09/16 09:35 ; Start 10/08/16 at 16:00 Piperacillin Sod/ Tazobactam Sod 3.375 gm/Sodium Chloride 50 ml @ 100 mls/hr Q8HRS IV Last administered on 10/09/16 07:30; Start 10/08/16 at 14:00 Vancomycin HCl/ Sodium Chloride (Iv Sodium Chloride 0.9% 250ml) 250 ml @ 250 mls/hr Q24H IV ; Start 10/09/16 at 14:00 Vancomycin HCl 1 each 1 each PRN DAILY PRN MC SEE COMMENTS Last administered on 10/08/16 13:20; Start 10/08/16 at 13:00 Vancomycin HCl/ Sodium Chloride (Iv Sodium Chloride 0.9% 500ml Bag) 500 ml @ 250 mls/hr 1X ONCE IV Last administered on 10/08/16 14:58; Start 10/08/16 at 14:00; Stop 10/08/16 at 15:59; Status DC Albuterol Sulfate (Ventolin Neb Soln) 2.5 mg PRN QID PRN NEB WHEEZING; Start at 13:15 Budesonide (Pulmicort) 0.5 mg RTBID NEB ; Start 10/09/16 at 09:30 Active Scripts Active Levaquin (Levofloxacin) 500 Mg Tablet 1 Tab PO DAILY Reported Aricept (Donepezil Hcl) 10 Mg Tablet 1 Tab PO QHS Cozaar (Losartan Potassium) 100 Mg Tablet 100 Mg PO DAILY Namenda Xr (Memantine Hcl) 28 Mg Cap.spr.24 28 Mg PO DAILY Norvasc (Amlodipine Besylate) 5 Mg Tablet 1 Tab PO DAILY Lovastatin 40 Mg Tablet 1 Tab PO DAILY Acetaminophen 500 Mg Tablet 1 Tab PO QID Duoneb 0.5-3(2.5) Mg/3 Ml (Albuterol/Ipratropium) 3 Ml Ampul.neb 3 Ml NEB QID Seroquel (Quetiapine Fumarate) 25 Mg Tablet 1 Tab PO QHS PRN Aspirin 81 Mg Tab.chew 1 Tab PO DAILY Centrum Silver Tablet (Multivits-Min/Fa/Lycopene/Lut) 1 Each Tablet 1 Each PO DAILY Vitals/I & O Vital Sign - Last 24 Hours 10/08/16 10/08/16 10/08/16 10/08/16 11:00 14:58 15:45 19:00 Temp 97.5 98.1 98.8 97.5 98.1 98.8 Pulse 94 105 103 Resp 14 14 16 B/P 119/54 111/55 75/36 Pulse Ox 97 96 95 92 O2 Delivery Room Air Room Air Room Air Room Air 10/08/16 10/08/16 10/08/16 10/09/16 19:32 20:00 23:00 03:00 Temp 99.5 97.9 99.5 97.9 Pulse 121 116 Resp 16 18 B/P 145/86 116/73 Pulse Ox 92 91 96 O2 Delivery Room Air Room Air Room Air Room Air O2 Flow Rate 2.0 10/09/16 10/09/16 07:00 09:36 Temp 98.8 98.8 Pulse 92 Resp 18 B/P 125/72 Pulse Ox 97 98 O2 Delivery Room Air Room Air Intake and Output 10/08/16 10/08/16 10/09/16 15:00 23:00 07:00 Intake Total 80 ml Balance 80 ml ISA SCHERER MD Oct 09, 2016 10:49
[2016-10-09 11:00] VITALS: BP 120/81
[2016-10-09] MEDS: FLUDROCORTISONE 0.1 MG TABLET PO SCH (11:00)
[2016-10-09] MEDS: METOPROLOL TART IMMED RELEASE 25 MG TABLET PO SCH ×2 (11:00→23:26)
[2016-10-09] MEDS: AA 2.75%/CALCIUM/LYTES/D5W 2,000 ML IV PRN (11:34)
[2016-10-09] MEDS: BUDESONIDE 0.5 MG/2 ML NEBU NEB SCH ×2 (11:41→20:50)
[2016-10-09] MEDS ORDERED: AA 2.75%/CALCIUM/LYTES/D5W 2,000 ML IV SCH (12:00)
[2016-10-09] MEDS: VANCOMYCIN 1 GM in IV NORMAL SALINE 250ML 250 ML IV SCH (13:49)
[2016-10-09] MEDS: VANCOMYCIN PER PHARMACY MC PRN (14:22)
--- NOTE | 2016-10-09 14:35 | PDOC ---
Provider Note Provider Note Vascular Consult dictated Imp: Mild PVD with a pressure ulcer, small , superficial and clean Arterial doppler: 50% stenosis lt popliteal art. Non limb threatening Plan; Discussed with daughter, recommend conservative care, dressing over ulcer to relieve pressure, Rooke Boot ordered, heel protector on rt. Daughter is comfortable with conservative care. Will sign off , Available as needed in future ISA MAURO MD Oct 09, 2016 14:35
[2016-10-09 15:00] VITALS: BP 116/57
[2016-10-09 19:00] VITALS: BP 105/63
--- NOTE | 2016-10-09 21:20 | PDOC ---
Provider Note Provider Note Very drowsy and difficult to the arouse. She very clearly identified herself by her maiden name. Family tells me that she is very different from what she was at the snf. In the snf she is much more alert. This could be because of the cerebral hypoxia that she sustained on the day of admission. Discussed with Dr. Hair. Consider placing her on Florinef for the orthostatic hypotension. With a fairly normal LV and no significant valvular dysfunction she probably will be able to tolerate it. On the monitor she has sinus tachycardia and very brief runs of supraventricular tachycardia. Would also benefit with beta blockers. 1. Orthostatic hypotension leading to syncope 2. Dementia 3. Paroxysmal supraventricular tachycardia 4. Hypoxic encephalopathy. LINNEA HUNT MD Oct 09, 2016 21:20
--- NOTE | 2016-10-09 21:27 | CONS ---
DATE OF CONSULTATION: 10/09/2016 REASON FOR CONSULTATION: Left ankle ulcer and vascular disease. REQUESTING PHYSICIAN: Dr. Hair. HISTORY OF PRESENT ILLNESS: This is an 86-year-old female with severe Alzheimer's. She is still ambulatory with assistance with a walker. She was admitted for syncopal episode and she also was noted to have a urinary tract infection on admission. Her daughter first noted that she had this ulcer on the medial aspect of the left ankle on this admission. The daughter was able to give some history. She has had no prior history of any arterial interventions in the past. An arterial Doppler was done that showed diffuse atherosclerosis, but no focal stenosis except for possibly a 50% stenosis of the left popliteal artery. PAST MEDICAL HISTORY: She does not smoke. She is not a diabetic. Again, she has had no prior arterial interventions of any type. She does have a pacemaker however, longstanding hypertension, hyperlipidemia and Alzheimer's disease. PAST SURGICAL HISTORY: Prior operations include hysterectomy, pacemaker and a hip operation. She is in a group home. PHYSICAL EXAMINATION: GENERAL: An elderly female who appears comfortable, in no acute distress. She is somewhat sleepy. Her daughter was able to wake her up a little bit. CARDIOVASCULAR: She has got 2+ carotid pulses, 2+ radial pulses. Heart rate is regular with pacemaker in the chest. LUNGS: Nonlabored respirations. ABDOMEN: Soft. Femoral pulses are palpable. I could not palpate popliteal or pedal pulses on either leg. She has got no wounds or sores on her right foot. She has got superficial innocuous looking pressure ulcer on the medial aspect of the left ankle. IMPRESSION: Pressure ulcer, medial left ankle. It may be also related to some mild arterial insufficiency, but I do not think this is a limb threatening situation. I would recommend continued bulky dressing on that ulcer to decrease the pressure. We will order a Rooke boot for the left leg and heel protection on the right. I do not recommend any type of intervention at the present time or further evaluation unless the ulcer gets subcutaneously worse over time, but I do not think it will with nice wound care. Thanks for allowing me to see her. ISA MAURO MD DR: BETTINA/jason JOB#: [id number] / [id number]
[2016-10-09 23:00] VITALS: BP 137/62
[2016-10-09] MEDS: ATORVASTATIN CALCIUM 10 MG TABLET. PO SCH (23:25)
[2016-10-10 03:00] VITALS: BP 129/68
[2016-10-10] MEDS: PIPERACILLIN/TAZOBACTAM 3.375 GM in IV NORMAL SALINE 50ML 50 ML IV SCH ×4 (06:12→23:40)
--- NOTE | 2016-10-10 06:35 | CONS ---
DATE OF CONSULTATION: 10/09/2016 PATIENT'S ROOM: 502 REQUESTING PHYSICIAN: Dr. Hair. REASON FOR CONSULTATION: Left lower lobe pneumonia, UTI. HISTORY OF PRESENT ILLNESS: The patient is an 86-year-old -[place] female with a history of severe dementia, a [place] [facility] resident. She was admitted to [facility] on 10/07/2016 after a syncopal episode. According to the note, she was finishing lunch and had a syncopal episode, which according to family occurs at times, but only lasts about a minute or so. This time, however, she had no pulse and was started on CPR for approximately 10 minutes and then she became more arousable. She was brought to [facility], did have a temp as low as 92.3. White blood cell count was 11.8. She underwent a CT scan of her abdomen and pelvis, showed no acute abnormality. She had left lower lobe bronchi demonstrated mucus impaction. A CT scan of her chest showed abnormal material in the left lower lobe bronchus. Dr. Avalos has been following from Pulmonology. Arterial scan showed no evidence of high grade focal stenosis and a CT scan of her head showed no evidence of any midline shift or acute bleed. She was placed on vancomycin and Zosyn. She did recently have a urinary tract infection on 09/22/2016 that was pansensitive E. coli. Currently, this morning, the patient is sitting upright and she is taking some spoonfuls of jello. She opened her eyes on command to her family. PAST MEDICAL HISTORY: Positive for the above-mentioned urinary tract infection, hypertension, hyperlipidemia, Alzheimer disease, history of syncope, chronic kidney disease stage 2, osteoarthritis, diverticulosis. PAST SURGICAL HISTORY: Positive for pacemaker placement, total abdominal hysterectomy, bilateral salpingo-oophorectomy, right axillary cyst excision, benign colon polypectomy and right total hip arthroplasty. REVIEW OF SYSTEMS: Unobtainable secondary to her dementia. ALLERGIES: No known drug allergies. SOCIAL HISTORY: She is a [place] [facility] resident. No alcohol, tobacco. FAMILY HISTORY: Noncontributory. CURRENT MEDICATIONS: Include she received a dose of Rocephin. Now, she is on Zosyn, vancomycin, Norvasc, Lipitor, Pulmicort, Aricept, Synthroid, Cozaar, Namenda. Other meds are available and have been reviewed in the chart. PHYSICAL EXAMINATION: VITAL SIGNS: Temp minimum has been 92.3, currently 98.8 axillary, pulse 92, respirations 18, blood pressure 125/72, satting 98% on room air. CONSTITUTIONAL: She is alert. She is in no acute distress. HEENT: Her head is normocephalic. NECK: Supple, was leaning to the left a little bit, but then straightened up with eating. No JVD. LUNGS: Revealed mild crackles. HEART: S1, S2. Pacemaker, no complications. ABDOMEN: Soft, nontender, nondistended, with positive bowel sounds. EXTREMITIES: Without clubbing, cyanosis. She has a superficial wound on her left lateral ankle that is without signs of any complications. SKIN: Warm to touch without signs of rash. NEUROLOGIC: She is demented. LABORATORY DATA: White count 11.5, hemoglobin 9.6, platelets of 289, neutrophils 77, lymphs 13. Creatinine 1, glucose 68, lipase elevated at 675. Repeat urine is clean. MRSA screen is negative. Radiology as mentioned in history of present illness. IMPRESSION: 1. Hypothermia. 2. Leukocytosis. 3. Acute kidney injury. 4. Questionable aspiration with abnormal CT scan, bronch has been declined by the family. 5. Status post syncope and compressions. 6. Severe dementia. RECOMMENDATIONS: For now, continue the current antibiotics. Follow up labs and cultures. May benefit from speech and swallow evaluation. Thank you for allowing us to participate in this patient's care. If you have any questions, please do not hesitate to contact me. This was discussed with her family. JENNIFER YEE MD DR: LISSETTE/jason JOB#: [id number] / [id number]
[2016-10-10 06:40] LABS: CALCIUM 9.2 mg/dL (8.5-10.1); CREATININE 1.3 mg/dL (0.6-1.0); GFR 46.9; POTASSIUM 4.2 mmol/L (3.5-5.1)
[2016-10-10 07:00] VITALS: BP 103/50
[2016-10-10] MEDS: BUDESONIDE 0.5 MG/2 ML NEBU NEB SCH ×2 (07:59→18:50)
[2016-10-10] MEDS: IPRATRPIUM/ALBUTEROL 0.5/2.5MG 3 ML NEBU. NEB SCH ×4 (07:59→18:50)
--- NOTE | 2016-10-10 08:46 | PDOC ---
PULMONARY PROGRESS NOTES Subjective more alert, answers some Qs, no sob, no pain Vitals Vital Signs Date Time Temp Pulse Resp B/P Pulse Ox O2 Delivery O2 Flow Rate FiO2 10/10/16 08:05 Room Air 10/10/16 07:00 96.6 87 18 103/50 94 96.6 Comments ros discussed w rn, as mentioned as above other sys otherwise neg General: Alert, Confused HEENT: Other (nc at perrl nose clear) Lungs: Crackles Cardiovascular: S1, S2 Abdomen: Soft, Non-tender Neuro Exam: Alert Extremities: No Edema Skin: Warm Labs Laboratory Tests Test 10/08/16 13:08 10/09/16 04:30 10/10/16 05:15 Glucose (Fingerstick) 80mg/dL (70-99) White Blood Count 11.5x10^3/uL (4.0-11.0) Red Blood Count 3.75x10^6/uL (3.50-5.40) Hemoglobin 9.6g/dL (12.0-15.5) Hematocrit 30.3% (36.0-47.0) Mean Corpuscular Volume 81fL (79-100) Mean Corpuscular Hemoglobin 26pg (25-35) Mean Corpuscular Hemoglobin Concent 32g/dL (31-37) Red Cell Distribution Width 16.8% (11.5-14.5) Platelet Count 289x10^3/uL (140-400) Neutrophils (%) (Auto) 77% (31-73) Lymphocytes (%) (Auto) 13% (24-48) Monocytes (%) (Auto) 9% (0-9) Eosinophils (%) (Auto) 0% (0-3) Basophils (%) (Auto) 0% (0-3) Neutrophils # (Auto) 8.9x10^3uL (1.8-7.7) Lymphocytes # (Auto) 1.5x10^3/uL (1.0-4.8) Monocytes # (Auto) 1.0x10^3/uL (0.0-1.1) Eosinophils # (Auto) 0.0x10^3/uL (0.0-0.7) Basophils # (Auto) 0.0x10^3/uL (0.0-0.2) Sodium Level 148mmol/L (136-145) 146mmol/L (136-145) Potassium Level 3.9mmol/L (3.5-5.1) 4.2mmol/L (3.5-5.1) Chloride Level 110mmol/L (98-107) 112mmol/L (98-107) Carbon Dioxide Level 27mmol/L (21-32) 25mmol/L (21-32) Anion Gap 11 (6-14) 9 (6-14) Blood Urea Nitrogen 20mg/dL (7-20) 20mg/dL (7-20) Creatinine 1.3mg/dL (0.6-1.0) 1.3mg/dL (0.6-1.0) Estimated GFR (Cockcroft-Gault) 46.9 46.9 Glucose Level 86mg/dL (70-99) 95mg/dL (70-99) Calcium Level 9.2mg/dL (8.5-10.1) 9.2mg/dL (8.5-10.1) Total Bilirubin 0.2mg/dL (0.2-1.0) Direct Bilirubin < 0.1mg/dL (0.0-0.2) Aspartate Amino Transf (AST/SGOT) 83U/L (15-37) Alanine Aminotransferase (ALT/SGPT) 41U/L (14-59) Alkaline Phosphatase 108U/L (46-116) Total Protein 6.1g/dL (6.4-8.2) Albumin 2.5g/dL (3.4-5.0) Amylase Level 92U/L (25-115) Lipase 176U/L (73-393) Laboratory Tests Test 10/10/16 05:15 Sodium Level 146mmol/L (136-145) Potassium Level 4.2mmol/L (3.5-5.1) Chloride Level 112mmol/L (98-107) Carbon Dioxide Level 25mmol/L (21-32) Anion Gap 9 (6-14) Blood Urea Nitrogen 20mg/dL (7-20) Creatinine 1.3mg/dL (0.6-1.0) Estimated GFR (Cockcroft-Gault) 46.9 Glucose Level 95mg/dL (70-99) Calcium Level 9.2mg/dL (8.5-10.1) Medications Active Scripts Medications Dose Route/Sig Days Date Category Levaquin (Levofloxacin) 500 Mg Tablet 1 Tab PO DAILY 09/22/16 Rx Aricept (Donepezil Hcl) 10 Mg Tablet 1 Tab PO QHS 05/19/16 Reported Cozaar (Losartan Potassium) 100 Mg Tablet 100 Mg PO DAILY 05/19/16 Reported Namenda Xr (Memantine Hcl) 28 Mg Cap.spr.24 28 Mg PO DAILY 05/19/16 Reported Norvasc (Amlodipine Besylate) 5 Mg Tablet 1 Tab PO DAILY 05/19/16 Reported Lovastatin 40 Mg Tablet 1 Tab PO DAILY 05/19/16 Reported Acetaminophen 500 Mg Tablet 1 Tab PO QID 05/19/16 Reported Duoneb 0.5-3(2.5) Mg/3 Ml (Albuterol/Ipratropium) 3 Ml Ampul.neb 3 Ml NEB QID 05/19/16 Reported Seroquel (Quetiapine Fumarate) 25 Mg Tablet 1 Tab PO QHS PRN 05/19/16 Reported Aspirin 81 Mg Tab.chew 1 Tab PO DAILY 05/19/16 Reported Centrum Silver Tablet (Multivits-Min/Fa/Lycopene/Lut) 1 Each Tablet 1 Each PO DAILY 05/19/[address] of chest reviewed. 1. Abnormal material in the left lower lobe bronchus probably due to inflammatory debris, although a neoplastic etiology cannot be excluded. There is associated bronchiectasis and apparent mucus plugging in the left lower lobe. Chronic infection or allergic aspergillosis are possibilities. 2. 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 Impression . 1. Abnormal CT of the chest revealing left lower lobe debris, suspect mucous plugging. The patient has never smoked. There has been no history given of hemoptysis. 2. Possible aspiration pneumonia. 3. Metabolic toxic encephalopathy. 4. Severe Alzheimer's dementia. 5. Hyponatremia. 6. Chronic kidney disease. Plan . PLAN: 1. Recommend to continue antibiotics. 2. Case discussed with family members at the bedside by dr caban. They do not wish to be more aggressive than just treating a pneumonia, they declined bronchoscopy and/or repeat CT of the chest. bronchodilator ics discussed w FABIOLA Pittman MD Oct 10, 2016 08:46
[2016-10-10] MEDS ORDERED: LOSARTAN POTASSIUM 50 MG TABLET. PO SCH (09:00)
[2016-10-10] MEDS: LEVOTHYROXINE 75 MCG TABLET PO SCH (10:07)
[2016-10-10] MEDS: MEMANTINE 10 MG TABLET. PO SCH ×2 (10:07→20:36)
[2016-10-10] MEDS: DONEPEZIL HCL 10 MG TABLET. PO SCH (10:07)
[2016-10-10] MEDS: FLUDROCORTISONE 0.1 MG TABLET PO SCH (10:07)
[2016-10-10] MEDS: MULTIVITAMIN with MINERAL TABLET. PO SCH (10:07)
[2016-10-10] MEDS: ASPIRIN 81 MG TAB.CHEW PO SCH (10:07)
[2016-10-10] MEDS: METOPROLOL TART IMMED RELEASE 25 MG TABLET PO SCH ×2 (10:08→20:36)
--- NOTE | 2016-10-10 10:31 | PDOC ---
Infectious Disease Note Subjective Subjective Feeling nauseous No vomiting or diarrhea reported. No fever ROS ROS Vital Sign Vital Signs Vital Signs Date Time Temp Pulse Resp B/P Pulse Ox O2 Delivery O2 Flow Rate FiO2 10/10/16 10:08 87 103/50 10/10/16 08:05 Room Air 10/10/16 07:00 96.6 18 94 96.6 Physical Exam PHYSICAL EXAM GENERAL: Propped up in bed, NAD HENT: Oral cavity pink and moist LUNGS: Clear HEART: S1S2 ABD: Soft, no grimace or guarding to palpation : No Kaufman EXT: Rooke boots on COMMISSION SPECIALIST: Alert, answers few simple questions SKIN: No rash IV: ok Labs Lab Laboratory Tests Test 10/10/16 05:15 Sodium Level 146mmol/L (136-145) Potassium Level 4.2mmol/L (3.5-5.1) Chloride Level 112mmol/L (98-107) Carbon Dioxide Level 25mmol/L (21-32) Anion Gap 9 (6-14) Blood Urea Nitrogen 20mg/dL (7-20) Creatinine 1.3mg/dL (0.6-1.0) Estimated GFR (Cockcroft-Gault) 46.9 Glucose Level 95mg/dL (70-99) Calcium Level 9.2mg/dL (8.5-10.1) Micro URINE CULTURE RES 1 Final [place] albicans 25,000-50,000 colony forming units per mL Objective Assessment Hypothermia - improved Leukocytosis. stable PAUL ? Aspiration with abnormal CT scan - Bronch declined S/p syncope -compressions Severe Dementia Plan Plan of Care Vanc and Zosyn F/u labs and cult ? Speech and swallow eval Attending Co-Sign The patient was seen and interviewed as well as examined at the bedside. The chart was reviewed. The case was discussed. Agree with the plan of care. CHIDI BERTRAND APRN Oct 10, 2016 10:31 BERNARD FLEMING MD Oct 10, 2016 14:35
[2016-10-10 11:00] VITALS: BP 103/59
--- NOTE | 2016-10-10 12:29 | PDOC ---
Provider Note Provider Note She is more easily arousable today. She was able to take her morning medications. Monitor continues to show sinus tachycardia and brief runs of supraventricular tachycardia. After the metipranolol the heart rate is now 70 bpm. Blood pressure is 110/70. Continue Florinef and metoprolol and discontinue losartan. LINENA HUNT MD Oct 10, 2016 12:29
--- NOTE | 2016-10-10 14:25 | PDOC ---
PROGRESS NOTES Subjective Subjective she is alert and talking. echo okay.lab reviewed. off losartan.systolic bp 104. Objective Objective Vital Signs Date Time Temp Pulse Resp B/P Pulse Ox O2 Delivery O2 Flow Rate FiO2 10/10/16 11:04 94 Room Air 10/10/16 11:00 97.7 77 19 103/59 97.7 10/08/16 20:00 2.0 Intake and Output 10/10/16 07:00 Intake Total 5954 ml Output Total 12 ml Balance 5942 ml Intake Oral 360 ml IV Total 5594 ml Output Urine Total 12 ml # Voids 2 # Bowel Movements 1 Physical Exam Abdomen: Soft Heart: Regular rate, Normal S1, Normal S2 Extremities: No edema General: Alert HEENT: Atraumatic Lungs: Clear to auscultation Neuro: Normal speech Psych/Mental Status: Mood NL Skin: No rashes Assessment Assessment Problems Medical Problems:1. Syncopal episode. 2. Hypernatremia. 3. Pyuria. urine culture grew dolly 25-50K. not significant 4. aspiration pneumonia 6. Hyperlipidemia. 7. Alzheimer disease. 8. Hyperlipidemia. 9. Chronic kidney disease stage III. 10. Elevated lipase now normal PAD left ankle ulcer metabolic encephalopathy mild protein calorie malnutrition subclinical hypothyroidism (1) Syncope (1) Syncope Status: Acute Plan Plan of Care continue PPN d/c losartan continue metoprolol continue iv vancomycin and zosn consult ST for swallow evaluation PT and OT Comment Review of Relevant I have reviewed the following items kamar (where applicable) has been applied. Labs Laboratory Tests Test 10/09/16 04:30 10/10/16 05:15 10/10/16 13:20 White Blood Count 11.5x10^3/uL (4.0-11.0) Red Blood Count 3.75x10^6/uL (3.50-5.40) Hemoglobin 9.6g/dL (12.0-15.5) Hematocrit 30.3% (36.0-47.0) Mean Corpuscular Volume 81fL (79-100) Mean Corpuscular Hemoglobin 26pg (25-35) Mean Corpuscular Hemoglobin Concent 32g/dL (31-37) Red Cell Distribution Width 16.8% (11.5-14.5) Platelet Count 289x10^3/uL (140-400) Neutrophils (%) (Auto) 77% (31-73) Lymphocytes (%) (Auto) 13% (24-48) Monocytes (%) (Auto) 9% (0-9) Eosinophils (%) (Auto) 0% (0-3) Basophils (%) (Auto) 0% (0-3) Neutrophils # (Auto) 8.9x10^3uL (1.8-7.7) Lymphocytes # (Auto) 1.5x10^3/uL (1.0-4.8) Monocytes # (Auto) 1.0x10^3/uL (0.0-1.1) Eosinophils # (Auto) 0.0x10^3/uL (0.0-0.7) Basophils # (Auto) 0.0x10^3/uL (0.0-0.2) Sodium Level 148mmol/L (136-145) 146mmol/L (136-145) Potassium Level 3.9mmol/L (3.5-5.1) 4.2mmol/L (3.5-5.1) Chloride Level 110mmol/L (98-107) 112mmol/L (98-107) Carbon Dioxide Level 27mmol/L (21-32) 25mmol/L (21-32) Anion Gap 11 (6-14) 9 (6-14) Blood Urea Nitrogen 20mg/dL (7-20) 20mg/dL (7-20) Creatinine 1.3mg/dL (0.6-1.0) 1.3mg/dL (0.6-1.0) Estimated GFR (Cockcroft-Gault) 46.9 46.9 Glucose Level 86mg/dL (70-99) 95mg/dL (70-99) Calcium Level 9.2mg/dL (8.5-10.1) 9.2mg/dL (8.5-10.1) Total Bilirubin 0.2mg/dL (0.2-1.0) Direct Bilirubin < 0.1mg/dL (0.0-0.2) Aspartate Amino Transf (AST/SGOT) 83U/L (15-37) Alanine Aminotransferase (ALT/SGPT) 41U/L (14-59) Alkaline Phosphatase 108U/L (46-116) Total Protein 6.1g/dL (6.4-8.2) Albumin 2.5g/dL (3.4-5.0) Amylase Level 92U/L (25-115) Lipase 176U/L (73-393) Vancomycin Level Trough 13.7mcg/mL (10.0-20.0) Vancomycin Last Dose Date Vancomycin Last Dose Time Laboratory Tests Test 10/10/16 05:15 10/10/16 13:20 Sodium Level 146mmol/L (136-145) Potassium Level 4.2mmol/L (3.5-5.1) Chloride Level 112mmol/L (98-107) Carbon Dioxide Level 25mmol/L (21-32) Anion Gap 9 (6-14) Blood Urea Nitrogen 20mg/dL (7-20) Creatinine 1.3mg/dL (0.6-1.0) Estimated GFR (Cockcroft-Gault) 46.9 Glucose Level 95mg/dL (70-99) Calcium Level 9.2mg/dL (8.5-10.1) Vancomycin Level Trough 13.7mcg/mL (10.0-20.0) Vancomycin Last Dose Date Vancomycin Last Dose Time Microbiology 10/07/16 Urine Culture - Final, Complete 10/07/16 Urine Culture Result 1 (SOPHIE) - Final, Complete Medications Current Medications Ondansetron HCl 4 mg 4 mg PRN Q8HRS PRN IV NAUSEA/VOMITING; Start 10/07/16 at 16:45; Stop 10/08/16 at 16:44; Status DC Sodium Chloride (Iv Sodium Chloride 0.9% 1000ml Bag) 1,000 ml @ 125 mls/hr Q8H IV Last administered on 10/07/16 16:47; Start 10/07/16 at 16:32; Stop at 13:10; Status DC Acetaminophen 650 mg 650 mg PRN Q4HRS PRN PO FEVER; Start 10/07/16 at 16:45; Stop 10/08/16 at 16:44; Status DC Ceftriaxone Sodium (Rocephin 1gm Ivpb For Omni) 50 ml @ 100 mls/hr 1X ONCE IV Last administered on 10/07/16 17:57; Start 10/07/16 at 17:30; Stop 10/07/16 at 17:59; Status DC Acetaminophen (Tylenol) 650 mg PRN Q4HRS PRN PO MILD PAIN / TEMP; Start at 18:00 Amlodipine Besylate (Norvasc) 5 mg DAILY PO ; Start 10/08/16 at 09:00; Stop at 13:10; Status DC Donepezil HCl (Aricept) 10 mg DAILY PO Last administered on 10/10/16 10:07; Start 10/08/16 at 09:00 Aspirin (Children'S Aspirin) 81 mg DAILY PO Last administered on 10/10/16 10: 07; Start 10/08/16 at 09:00 Multivitamins (Thera M Plus) 1 tab DAILY PO Last administered on 10/10/16 10: 07; Start 10/08/16 at 09:00 Albuterol/ Ipratropium (Duoneb) 3 ml PRN QID PRN NEB WHEEZING; Start 10/07/16 at 18:00; Stop 10/08/16 at 13:14; Status DC Atorvastatin Calcium (Lipitor) 10 mg QHS PO Last administered on 10/09/16 23: 25; Start 10/07/16 at 21:00 Memantine (Namenda) 10 mg BID PO Last administered on 10/10/16 10:07; Start at 21:00 Losartan Potassium (Cozaar) 100 mg DAILY PO ; Start 10/08/16 at 09:00; Stop at 10:55; Status DC Magnesium Hydroxide 2400 mg 2,400 mg PRN DAILY PRN PO CONSTIPATION; Start 10/07 at 18:00 Ceftriaxone Sodium 1 gm/ Sodium Chloride 50 ml @ 100 mls/hr Q24H IV ; Start at 18:00; Stop 10/08/16 at 18:00; Status DC Dextrose 1,000 ml @ 75 mls/hr [id number] IV Last administered on 10/09/16 07:27 ; Start 10/07/16 at 18:30; Stop 10/09/16 at 10:55; Status DC Levothyroxine Sodium (Synthroid) 75 mcg DAILY07 PO Last administered on 10:07; Start 10/08/16 at 07:00 Albuterol/ Ipratropium 3 ml 3 ml RTQID NEB Last administered on 10/10/16 11:04 ; Start 10/08/16 at 16:00 Piperacillin Sod/ Tazobactam Sod 3.375 gm/Sodium Chloride 50 ml @ 100 mls/hr Q8HRS IV Last administered on 10/10/16 06:12; Start 10/08/16 at 14:00; Stop at 12:23; Status DC Vancomycin HCl/ Sodium Chloride (Iv Sodium Chloride 0.9% 250ml) 250 ml @ 250 mls/hr Q24H IV Last administered on 10/09/16 13:49; Start 10/09/16 at 14:00 Vancomycin HCl 1 each 1 each PRN DAILY PRN MC SEE COMMENTS Last administered on 10/09/16 14:22; Start 10/08/16 at 13:00 Vancomycin HCl/ Sodium Chloride (Iv Sodium Chloride 0.9% 500ml Bag) 500 ml @ 250 mls/hr 1X ONCE IV Last administered on 10/08/16 14:58; Start 10/08/16 at 14:00; Stop 10/08/16 at 15:59; Status DC Albuterol Sulfate (Ventolin Neb Soln) 2.5 mg PRN QID PRN NEB WHEEZING; Start at 13:15 Budesonide (Pulmicort) 0.5 mg RTBID NEB Last administered on 10/10/16 07:59; Start 10/09/16 at 09:30 Losartan Potassium (Cozaar) 50 mg DAILY PO ; Start 10/10/16 at 09:00; Stop 10/10 at 12:30; Status DC Metoprolol Tartrate (Lopressor) 25 mg BID PO Last administered on 10/10/16 10: 08; Start 10/09/16 at 11:00 Fludrocortisone Acetate 0.1 mg 0.1 mg DAILY PO Last administered on 10/10/16 10:07; Start 10/09/16 at 11:00 Amino Acids/ Electrolytes 2,000 ml @ 80 mls/hr Q24H IV ; Start 10/09/16 at 12: 00; Stop 10/09/16 at 12:00; Status DC Amino Acids/ Electrolytes (Clinimix E 2.75%-5% Solution) 2,000 ml @ 80 mls/hr Q24H PRN IV . Last administered on 10/09/16 11:34; Start 10/09/16 at 12:00 Vancomycin HCl 1 each 1X ONCE MC ; Start 10/09/16 at 13:30; Stop 10/09/16 at 13 :31; Status Cancel Vancomycin HCl 1 each 1 each 1X ONCE MC ; Start 10/10/16 at 13:30; Stop at 13:31; Status DC Piperacillin Sod/ Tazobactam Sod/ Sodium Chloride (Zosyn/Iv Sodium Chloride 0.9 % 50ml) 50 ml @ 100 mls/hr Q6HRS IV Last administered on 10/10/16 13:55; Start 10/10/16 at 13:00 Active Scripts Active Levaquin (Levofloxacin) 500 Mg Tablet 1 Tab PO DAILY Reported Aricept (Donepezil Hcl) 10 Mg Tablet 1 Tab PO QHS Cozaar (Losartan Potassium) 100 Mg Tablet 100 Mg PO DAILY Namenda Xr (Memantine Hcl) 28 Mg Cap.spr.24 28 Mg PO DAILY Norvasc (Amlodipine Besylate) 5 Mg Tablet 1 Tab PO DAILY Lovastatin 40 Mg Tablet 1 Tab PO DAILY Acetaminophen 500 Mg Tablet 1 Tab PO QID Duoneb 0.5-3(2.5) Mg/3 Ml (Albuterol/Ipratropium) 3 Ml Ampul.neb 3 Ml NEB QID Seroquel (Quetiapine Fumarate) 25 Mg Tablet 1 Tab PO QHS PRN Aspirin 81 Mg Tab.chew 1 Tab PO DAILY Centrum Silver Tablet (Multivits-Min/Fa/Lycopene/Lut) 1 Each Tablet 1 Each PO DAILY Vitals/I & O Vital Sign - Last 24 Hours 10/09/16 10/09/16 10/09/16 10/09/16 15:00 16:16 19:00 20:52 Temp 96.6 97.9 96.6 97.9 Pulse 82 87 Resp 18 18 B/P 116/57 105/63 Pulse Ox 94 96 98 O2 Delivery Room Air Room Air Room Air Room Air 10/09/16 10/09/16 10/09/16 10/09/16 20:52 22:08 23:00 23:26 Temp 97.9 97.9 Pulse 105 103 Resp 18 B/P 137/62 137/62 Pulse Ox 98 97 O2 Delivery Room Air Room Air Room Air 10/10/16 10/10/16 10/10/16 10/10/16 03:00 07:00 08:05 09:00 Temp 96.6 96.6 96.6 96.6 Pulse 64 87 87 Resp 18 18 B/P 129/68 103/50 103/50 Pulse Ox 95 94 O2 Delivery Room Air Room Air Room Air 10/10/16 10/10/16 10/10/16 10:08 11:00 11:04 Temp 97.7 97.7 Pulse 87 77 Resp 19 B/P 103/50 103/59 Pulse Ox 96 94 O2 Delivery Room Air Room Air Intake and Output 10/09/16 10/09/16 10/10/16 15:00 23:00 07:00 Intake Total 1250 ml 710 ml 3994 ml Output Total 12 ml Balance 1250 ml 698 ml 3994 ml ISA SCHERER MD Oct 10, 2016 14:25
[2016-10-10] MEDS: VANCOMYCIN PER PHARMACY MC PRN (14:42)
[2016-10-10 15:00] VITALS: BP 108/62
[2016-10-10] MEDS: VANCOMYCIN 1 GM in IV NORMAL SALINE 250ML 250 ML IV SCH (17:06)
[2016-10-10] MEDS: AA 2.75%/CALCIUM/LYTES/D5W 2,000 ML IV PRN (18:33)
[2016-10-10 19:00] VITALS: BP 152/77
[2016-10-10] MEDS: ATORVASTATIN CALCIUM 10 MG TABLET. PO SCH (20:36)
[2016-10-10 23:00] VITALS: BP 135/71
[2016-10-11] VITALS (7 sets, daily range): BP systolic 111–146; BP diastolic 56–70
[2016-10-11] MEDS: PIPERACILLIN/TAZOBACTAM 3.375 GM in IV NORMAL SALINE 50ML 50 ML IV SCH ×4 (05:13→23:11)
[2016-10-11] MEDS: IPRATRPIUM/ALBUTEROL 0.5/2.5MG 3 ML NEBU. NEB SCH ×4 (07:04→19:42)
[2016-10-11] MEDS: BUDESONIDE 0.5 MG/2 ML NEBU NEB SCH ×2 (07:04→19:42)
--- NOTE | 2016-10-11 07:57 | PDOC ---
PULMONARY PROGRESS NOTES Subjective more alert, answers some Qs, no sob, has cough, no pain Vitals Vital Signs Date Time Temp Pulse Resp B/P Pulse Ox O2 Delivery O2 Flow Rate FiO2 10/11/16 07:06 97 Room Air 10/11/16 03:04 97.5 80 20 135/69 97.5 10/10/16 08:00 2.0 Comments ros discussed w rn, as mentioned as above other sys otherwise neg General: Alert, Confused HEENT: Other (nc at perrl nose clear) Lungs: Crackles Cardiovascular: S1, S2 Abdomen: Soft, Non-tender Neuro Exam: Alert Extremities: No Edema Skin: Warm Labs Laboratory Tests Test 10/10/16 05:15 10/10/16 13:20 Sodium Level 146mmol/L (136-145) Potassium Level 4.2mmol/L (3.5-5.1) Chloride Level 112mmol/L (98-107) Carbon Dioxide Level 25mmol/L (21-32) Anion Gap 9 (6-14) Blood Urea Nitrogen 20mg/dL (7-20) Creatinine 1.3mg/dL (0.6-1.0) Estimated GFR (Cockcroft-Gault) 46.9 Glucose Level 95mg/dL (70-99) Calcium Level 9.2mg/dL (8.5-10.1) Vancomycin Level Trough 13.7mcg/mL (10.0-20.0) Vancomycin Last Dose Date Vancomycin Last Dose Time Laboratory Tests Test 10/10/16 13:20 Vancomycin Level Trough 13.7mcg/mL (10.0-20.0) Vancomycin Last Dose Date Vancomycin Last Dose Time Medications Active Scripts Medications Dose Route/Sig Days Date Category Levaquin (Levofloxacin) 500 Mg Tablet 1 Tab PO DAILY 09/22/16 Rx Aricept (Donepezil Hcl) 10 Mg Tablet 1 Tab PO QHS 05/19/16 Reported Cozaar (Losartan Potassium) 100 Mg Tablet 100 Mg PO DAILY 05/19/16 Reported Namenda Xr (Memantine Hcl) 28 Mg Cap.spr.24 28 Mg PO DAILY 05/19/16 Reported Norvasc (Amlodipine Besylate) 5 Mg Tablet 1 Tab PO DAILY 05/19/16 Reported Lovastatin 40 Mg Tablet 1 Tab PO DAILY 05/19/16 Reported Acetaminophen 500 Mg Tablet 1 Tab PO QID 05/19/16 Reported Duoneb 0.5-3(2.5) Mg/3 Ml (Albuterol/Ipratropium) 3 Ml Ampul.neb 3 Ml NEB QID 05/19/16 Reported Seroquel (Quetiapine Fumarate) 25 Mg Tablet 1 Tab PO QHS PRN 05/19/16 Reported Aspirin 81 Mg Tab.chew 1 Tab PO DAILY 05/19/16 Reported Centrum Silver Tablet (Multivits-Min/Fa/Lycopene/Lut) 1 Each Tablet 1 Each PO DAILY 05/19/[address] of chest reviewed. 1. Abnormal material in the left lower lobe bronchus probably due to inflammatory debris, although a neoplastic etiology cannot be excluded. There is associated bronchiectasis and apparent mucus plugging in the left lower lobe. Chronic infection or allergic aspergillosis are possibilities. 2. 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 Impression . 1. Abnormal CT of the chest revealing left lower lobe debris, suspect mucous plugging. The patient has never smoked. There has been no history given of hemoptysis. 2. Possible aspiration pneumonia. 3. Metabolic toxic encephalopathy. 4. Severe Alzheimer's dementia. 5. Hyponatremia. 6. Chronic kidney disease. Plan . PLAN: 1. continue antibiotics. 2. Case discussed with family members by dr caban. They do not wish to be more aggressive than just treating a pneumonia, they declined bronchoscopy and/or repeat CT of the chest. bronchodilator ics discussed w FABIOLA Pittman MD Oct 11, 2016 07:57
[2016-10-11] MEDS: MEMANTINE 10 MG TABLET. PO SCH ×2 (08:00→20:41)
[2016-10-11] MEDS: DONEPEZIL HCL 10 MG TABLET. PO SCH (08:00)
[2016-10-11] MEDS: ASPIRIN 81 MG TAB.CHEW PO SCH (08:01)
[2016-10-11] MEDS: FLUDROCORTISONE 0.1 MG TABLET PO SCH (08:01)
[2016-10-11] MEDS: METOPROLOL TART IMMED RELEASE 25 MG TABLET PO SCH ×2 (08:01→20:42)
[2016-10-11] MEDS: LEVOTHYROXINE 75 MCG TABLET PO SCH (08:01)
[2016-10-11] MEDS: MULTIVITAMIN with MINERAL TABLET. PO SCH (08:01)
--- NOTE | 2016-10-11 10:52 | PDOC ---
Infectious Disease Note Subjective Subjective Daughter pesent. No concerns voiced at this time. No vomiting or diarrhea reported. No fever Vital Sign Vital Signs Vital Signs Date Time Temp Pulse Resp B/P Pulse Ox O2 Delivery O2 Flow Rate FiO2 10/11/16 08:01 72 146/70 10/11/16 08:00 Room Air 2.0 10/11/16 07:06 97 10/11/16 07:00 97.5 19 97.5 Physical Exam PHYSICAL EXAM GENERAL: Resting quietly LUNGS: Clear, nonlabored HEART: S1S2 ABD: Soft, no grimace or guarding to palpation EXT: Rooke boots on SKIN: No rash IV: ok Labs Lab Laboratory Tests Test 10/10/16 13:20 Vancomycin Level Trough 13.7mcg/mL (10.0-20.0) Vancomycin Last Dose Date Vancomycin Last Dose Time Objective Assessment Hypothermia - improved Leukocytosis. stable PAUL ? Aspiration with abnormal CT scan - Bronch declined S/p syncope -compressions Severe Dementia Plan Plan of Care Jose await swallow eval Attending Co-Sign The patient was seen and interviewed as well as examined at the bedside. The chart was reviewed. The case was discussed. Agree with the plan of care. d/c vanc, d/w daughter CHIDI BERTRAND KRISTIN Oct 11, 2016 10:52 BERNARD FLEMING MD Oct 11, 2016 12:08
--- NOTE | 2016-10-11 11:49 | PDOC ---
PROGRESS NOTES Subjective Subjective sleeping. discussed with family about transitioning to longterm. they want [facility]. afebrile. Objective Objective Vital Signs Date Time Temp Pulse Resp B/P Pulse Ox O2 Delivery O2 Flow Rate FiO2 10/11/16 08:01 72 146/70 10/11/16 08:00 Room Air 2.0 10/11/16 07:06 97 10/11/16 07:00 97.5 19 97.5 Intake and Output 10/11/16 07:00 Intake Total 1875 ml Output Total 1 ml Balance 1874 ml Intake Oral 1775 ml IV Total 100 ml Stool Total 1 ml # Voids 9 # Bowel Movements 3 Physical Exam Abdomen: Soft Heart: Regular rate, Normal S1, Normal S2 Extremities: No edema General: Other (sleeping) HEENT: Atraumatic Lungs: Other (clear anteriorly) Neuro: Other (sleeping) Psych/Mental Status: Other (sleeping) Skin: No rashes Assessment Assessment Problems Medical Problems:1. Syncopal episode. 2. Hypernatremia. 3. Pyuria. urine culture grew dolly 25-50K. not significant 4. aspiration pneumonia 6. Hyperlipidemia. 7. Alzheimer disease. 8. Hyperlipidemia. 9. Chronic kidney disease stage III. 10. Elevated lipase now normal PAD left ankle ulcer metabolic encephalopathy mild protein calorie malnutrition subclinical hypothyroidism (1) Syncope Status: Acute Plan Plan of Care continue iv vancomycin and zosyn continue duoneb nebulizer rx and budesonide continue PPN speech therapy to evaluate swallow palliative care consult hospice screen and transition to longterm continue metoprolol continue florinef Comment Review of Relevant I have reviewed the following items kamar (where applicable) has been applied. Labs Laboratory Tests Test 10/10/16 05:15 10/10/16 13:20 Sodium Level 146mmol/L (136-145) Potassium Level 4.2mmol/L (3.5-5.1) Chloride Level 112mmol/L (98-107) Carbon Dioxide Level 25mmol/L (21-32) Anion Gap 9 (6-14) Blood Urea Nitrogen 20mg/dL (7-20) Creatinine 1.3mg/dL (0.6-1.0) Estimated GFR (Cockcroft-Gault) 46.9 Glucose Level 95mg/dL (70-99) Calcium Level 9.2mg/dL (8.5-10.1) Vancomycin Level Trough 13.7mcg/mL (10.0-20.0) Vancomycin Last Dose Date Vancomycin Last Dose Time Laboratory Tests Test 10/10/16 13:20 Vancomycin Level Trough 13.7mcg/mL (10.0-20.0) Vancomycin Last Dose Date Vancomycin Last Dose Time Microbiology 10/07/16 Urine Culture - Final, Complete 10/07/16 Urine Culture Result 1 (SOPHIE) - Final, Complete Medications Current Medications Ondansetron HCl 4 mg 4 mg PRN Q8HRS PRN IV NAUSEA/VOMITING; Start 10/07/16 at 16:45; Stop 10/08/16 at 16:44; Status DC Sodium Chloride (Iv Sodium Chloride 0.9% 1000ml Bag) 1,000 ml @ 125 mls/hr Q8H IV Last administered on 10/07/16 16:47; Start 10/07/16 at 16:32; Stop at 13:10; Status DC Acetaminophen 650 mg 650 mg PRN Q4HRS PRN PO FEVER; Start 10/07/16 at 16:45; Stop 10/08/16 at 16:44; Status DC Ceftriaxone Sodium (Rocephin 1gm Ivpb For Omni) 50 ml @ 100 mls/hr 1X ONCE IV Last administered on 10/07/16 17:57; Start 10/07/16 at 17:30; Stop 10/07/16 at 17:59; Status DC Acetaminophen (Tylenol) 650 mg PRN Q4HRS PRN PO MILD PAIN / TEMP; Start at 18:00 Amlodipine Besylate (Norvasc) 5 mg DAILY PO ; Start 10/08/16 at 09:00; Stop at 13:10; Status DC Donepezil HCl (Aricept) 10 mg DAILY PO Last administered on 10/11/16 08:00; Start 10/08/16 at 09:00 Aspirin (Children'S Aspirin) 81 mg DAILY PO Last administered on 10/11/16 08: 01; Start 10/08/16 at 09:00 Multivitamins (Thera M Plus) 1 tab DAILY PO Last administered on 10/11/16 08: 01; Start 10/08/16 at 09:00 Albuterol/ Ipratropium (Duoneb) 3 ml PRN QID PRN NEB WHEEZING; Start 10/07/16 at 18:00; Stop 10/08/16 at 13:14; Status DC Atorvastatin Calcium (Lipitor) 10 mg QHS PO Last administered on 10/10/16 20: 36; Start 10/07/16 at 21:00 Memantine (Namenda) 10 mg BID PO Last administered on 10/11/16 08:00; Start at 21:00 Losartan Potassium (Cozaar) 100 mg DAILY PO ; Start 10/08/16 at 09:00; Stop at 10:55; Status DC Magnesium Hydroxide 2400 mg 2,400 mg PRN DAILY PRN PO CONSTIPATION; Start 10/07 at 18:00 Ceftriaxone Sodium 1 gm/ Sodium Chloride 50 ml @ 100 mls/hr Q24H IV ; Start at 18:00; Stop 10/08/16 at 18:00; Status DC Dextrose 1,000 ml @ 75 mls/hr [id number] IV Last administered on 10/09/16 07:27 ; Start 10/07/16 at 18:30; Stop 10/09/16 at 10:55; Status DC Levothyroxine Sodium (Synthroid) 75 mcg DAILY07 PO Last administered on 08:01; Start 10/08/16 at 07:00 Albuterol/ Ipratropium 3 ml 3 ml RTQID NEB Last administered on 10/11/16 07:04 ; Start 10/08/16 at 16:00 Piperacillin Sod/ Tazobactam Sod 3.375 gm/Sodium Chloride 50 ml @ 100 mls/hr Q8HRS IV Last administered on 10/10/16 06:12; Start 10/08/16 at 14:00; Stop at 12:23; Status DC Vancomycin HCl/ Sodium Chloride (Iv Sodium Chloride 0.9% 250ml) 250 ml @ 250 mls/hr Q24H IV Last administered on 10/10/16 17:06; Start 10/09/16 at 14:00 Vancomycin HCl 1 each 1 each PRN DAILY PRN MC SEE COMMENTS Last administered on 10/10/16 14:42; Start 10/08/16 at 13:00 Vancomycin HCl/ Sodium Chloride (Iv Sodium Chloride 0.9% 500ml Bag) 500 ml @ 250 mls/hr 1X ONCE IV Last administered on 10/08/16 14:58; Start 10/08/16 at 14:00; Stop 10/08/16 at 15:59; Status DC Albuterol Sulfate (Ventolin Neb Soln) 2.5 mg PRN QID PRN NEB WHEEZING; Start at 13:15 Budesonide (Pulmicort) 0.5 mg RTBID NEB Last administered on 10/11/16 07:04; Start 10/09/16 at 09:30 Losartan Potassium (Cozaar) 50 mg DAILY PO ; Start 10/10/16 at 09:00; Stop 10/10 at 12:30; Status DC Metoprolol Tartrate (Lopressor) 25 mg BID PO Last administered on 10/11/16 08: 01; Start 10/09/16 at 11:00 Fludrocortisone Acetate 0.1 mg 0.1 mg DAILY PO Last administered on 10/11/16 08:01; Start 10/09/16 at 11:00 Amino Acids/ Electrolytes 2,000 ml @ 80 mls/hr Q24H IV ; Start 10/09/16 at 12: 00; Stop 10/09/16 at 12:00; Status DC Amino Acids/ Electrolytes (Clinimix E 2.75%-5% Solution) 2,000 ml @ 80 mls/hr Q24H PRN IV . Last administered on 10/10/16 18:33; Start 10/09/16 at 12:00 Vancomycin HCl 1 each 1X ONCE MC ; Start 10/09/16 at 13:30; Stop 10/09/16 at 13 :31; Status Cancel Vancomycin HCl 1 each 1 each 1X ONCE MC Last administered on 10/10/16 13:30; Start 10/10/16 at 13:30; Stop 10/10/16 at 13:31; Status DC Piperacillin Sod/ Tazobactam Sod/ Sodium Chloride (Zosyn/Iv Sodium Chloride 0.9 % 50ml) 50 ml @ 100 mls/hr Q6HRS IV Last administered on 10/11/16 05:13; Start 10/10/16 at 13:00 Active Scripts Active Levaquin (Levofloxacin) 500 Mg Tablet 1 Tab PO DAILY Reported Aricept (Donepezil Hcl) 10 Mg Tablet 1 Tab PO QHS Cozaar (Losartan Potassium) 100 Mg Tablet 100 Mg PO DAILY Namenda Xr (Memantine Hcl) 28 Mg Cap.spr.24 28 Mg PO DAILY Norvasc (Amlodipine Besylate) 5 Mg Tablet 1 Tab PO DAILY Lovastatin 40 Mg Tablet 1 Tab PO DAILY Acetaminophen 500 Mg Tablet 1 Tab PO QID Duoneb 0.5-3(2.5) Mg/3 Ml (Albuterol/Ipratropium) 3 Ml Ampul.neb 3 Ml NEB QID Seroquel (Quetiapine Fumarate) 25 Mg Tablet 1 Tab PO QHS PRN Aspirin 81 Mg Tab.chew 1 Tab PO DAILY Centrum Silver Tablet (Multivits-Min/Fa/Lycopene/Lut) 1 Each Tablet 1 Each PO DAILY Vitals/I & O Vital Sign - Last 24 Hours 10/10/16 10/10/16 10/10/16 10/10/16 15:00 16:11 18:50 19:00 Temp 96.7 96.3 96.7 96.3 Pulse 76 74 Resp 19 B/P 108/62 152/77 Pulse Ox 97 95 97 98 O2 Delivery Room Air Room Air Room Air Room Air 10/10/16 10/10/16 10/11/16 10/11/16 20:36 23:00 03:04 07:00 Temp 97.7 97.5 97.5 97.7 97.5 97.5 Pulse 74 72 80 72 Resp 20 20 19 B/P 152/77 135/71 135/69 146/70 Pulse Ox 97 95 99 O2 Delivery Room Air Room Air Room Air 10/11/16 10/11/16 10/11/16 07:06 08:00 08:01 Pulse 72 B/P 146/70 Pulse Ox 97 O2 Delivery Room Air Room Air O2 Flow Rate 2.0 Intake and Output 10/10/16 10/10/16 10/11/16 15:00 23:00 07:00 Intake Total 175 ml 1600 ml 100 ml Output Total 1 ml Balance 175 ml 1600 ml 99 ml ISA SCHERER MD Oct 11, 2016 11:49
[2016-10-11] MEDS: ATORVASTATIN CALCIUM 10 MG TABLET. PO SCH (20:41)
[2016-10-11] MEDS: AA 2.75%/CALCIUM/LYTES/D5W 2,000 ML IV PRN (23:10)
[2016-10-12] VITALS (8 sets, daily range): BP systolic 106–142; BP diastolic 56–84
[2016-10-12 04:46] LABS: BASO % 0 % (0-3); EOS % 2 % (0-3); HEMATOCRIT 24.9 % (36.0-47.0); HEMOGLOBIN 8.1 g/dL (12.0-15.5); LYMPH # 1.9 x10^3/uL (1.0-4.8); LYMPH % 31 % (24-48); MEAN CORPUSCULAR HEMOGLOBIN 27 pg (25-35); MEAN CORPUSCULAR HGB CONC 33 g/dL (31-37); MEAN CORPUSCULAR VOLUME 82 fL (79-100); MONO % 16 % (0-9); NEUT % 51 % (31-73); PLATELET COUNT 208 x10^3/uL (140-400); RED BLOOD COUNT 3.05 x10^6/uL (3.50-5.40); RED CELL DISTRIBUTION WIDTH 16.7 % (11.5-14.5); WHITE BLOOD COUNT 6.1 x10^3/uL (4.0-11.0)
[2016-10-12 05:11] LABS: CALCIUM 8.8 mg/dL (8.5-10.1); CREATININE 1.2 mg/dL (0.6-1.0); GFR 51.4; POTASSIUM 4.1 mmol/L (3.5-5.1)
[2016-10-12] MEDS: PIPERACILLIN/TAZOBACTAM 3.375 GM in IV NORMAL SALINE 50ML 50 ML IV SCH (05:19)
[2016-10-12] MEDS: BUDESONIDE 0.5 MG/2 ML NEBU NEB SCH ×2 (05:59→19:11)
[2016-10-12] MEDS: IPRATRPIUM/ALBUTEROL 0.5/2.5MG 3 ML NEBU. NEB SCH ×4 (05:59→19:11)
--- NOTE | 2016-10-12 08:51 | PDOC ---
PROGRESS NOTES Subjective Subjective she is alert. discussed with dr. sophia patel and family. lab reviewed. will advance to full liquids. switching to oral antibiotics. will continue PPN today. anticipate dismissal tomorrow to half-way and [facility]. Objective Objective Vital Signs Date Time Temp Pulse Resp B/P Pulse Ox O2 Delivery O2 Flow Rate FiO2 10/12/16 06:00 94 Room Air 10/12/16 03:11 98.5 81 20 106/56 98.5 10/11/16 23:01 2.0 Intake and Output 10/12/16 07:00 Intake Total 780 ml Output Total 2 ml Balance 778 ml Intake Oral 780 ml Output Urine Total 1 ml Stool Total 1 ml # Voids 5 # Bowel Movements 1 Physical Exam Abdomen: Soft Heart: Regular rate, Normal S1, Normal S2 Extremities: No edema General: Alert HEENT: Atraumatic Lungs: Clear to auscultation, Other (clear anteriorly) Neuro: Other (alert) Psych/Mental Status: Other (skin ulcer with scab left lateral malleolus) Skin: No rashes Assessment Assessment Problems Medical Problems:1. Syncopal episode. 2. Hypernatremia. 3. Pyuria. urine culture grew dolly 25-50K. not significant 4. aspiration pneumonia clinically improved 6. Hyperlipidemia. 7. Alzheimer disease. 8. Hyperlipidemia. 9. Chronic kidney disease stage III. 10. Elevated lipase now normal PAD left ankle ulcer metabolic encephalopathy mild protein calorie malnutrition subclinical hypothyroidism (1) Syncope Status: Acute Plan Plan of Care advance to full liquids continue PPN switch to oral antibiotics today per ID half-way placement [facility] anticipate dismissal tomorrow continue metoprolol continue florinef Comment Review of Relevant I have reviewed the following items kamar (where applicable) has been applied. Labs Laboratory Tests Test 10/10/16 13:20 10/12/16 03:50 Vancomycin Level Trough 13.7mcg/mL (10.0-20.0) Vancomycin Last Dose Date Vancomycin Last Dose Time White Blood Count 6.1x10^3/uL (4.0-11.0) Red Blood Count 3.05x10^6/uL (3.50-5.40) Hemoglobin 8.1g/dL (12.0-15.5) Hematocrit 24.9% (36.0-47.0) Mean Corpuscular Volume 82fL (79-100) Mean Corpuscular Hemoglobin 27pg (25-35) Mean Corpuscular Hemoglobin Concent 33g/dL (31-37) Red Cell Distribution Width 16.7% (11.5-14.5) Platelet Count 208x10^3/uL (140-400) Neutrophils (%) (Auto) 51% (31-73) Lymphocytes (%) (Auto) 31% (24-48) Monocytes (%) (Auto) 16% (0-9) Eosinophils (%) (Auto) 2% (0-3) Basophils (%) (Auto) 0% (0-3) Neutrophils # (Auto) 3.1x10^3uL (1.8-7.7) Lymphocytes # (Auto) 1.9x10^3/uL (1.0-4.8) Monocytes # (Auto) 1.0x10^3/uL (0.0-1.1) Eosinophils # (Auto) 0.1x10^3/uL (0.0-0.7) Basophils # (Auto) 0.0x10^3/uL (0.0-0.2) Sodium Level 146mmol/L (136-145) Potassium Level 4.1mmol/L (3.5-5.1) Chloride Level 112mmol/L (98-107) Carbon Dioxide Level 25mmol/L (21-32) Anion Gap 9 (6-14) Blood Urea Nitrogen 21mg/dL (7-20) Creatinine 1.2mg/dL (0.6-1.0) Estimated GFR (Cockcroft-Gault) 51.4 Glucose Level 106mg/dL (70-99) Calcium Level 8.8mg/dL (8.5-10.1) Laboratory Tests Test 10/12/16 03:50 White Blood Count 6.1x10^3/uL (4.0-11.0) Red Blood Count 3.05x10^6/uL (3.50-5.40) Hemoglobin 8.1g/dL (12.0-15.5) Hematocrit 24.9% (36.0-47.0) Mean Corpuscular Volume 82fL (79-100) Mean Corpuscular Hemoglobin 27pg (25-35) Mean Corpuscular Hemoglobin Concent 33g/dL (31-37) Red Cell Distribution Width 16.7% (11.5-14.5) Platelet Count 208x10^3/uL (140-400) Neutrophils (%) (Auto) 51% (31-73) Lymphocytes (%) (Auto) 31% (24-48) Monocytes (%) (Auto) 16% (0-9) Eosinophils (%) (Auto) 2% (0-3) Basophils (%) (Auto) 0% (0-3) Neutrophils # (Auto) 3.1x10^3uL (1.8-7.7) Lymphocytes # (Auto) 1.9x10^3/uL (1.0-4.8) Monocytes # (Auto) 1.0x10^3/uL (0.0-1.1) Eosinophils # (Auto) 0.1x10^3/uL (0.0-0.7) Basophils # (Auto) 0.0x10^3/uL (0.0-0.2) Sodium Level 146mmol/L (136-145) Potassium Level 4.1mmol/L (3.5-5.1) Chloride Level 112mmol/L (98-107) Carbon Dioxide Level 25mmol/L (21-32) Anion Gap 9 (6-14) Blood Urea Nitrogen 21mg/dL (7-20) Creatinine 1.2mg/dL (0.6-1.0) Estimated GFR (Cockcroft-Gault) 51.4 Glucose Level 106mg/dL (70-99) Calcium Level 8.8mg/dL (8.5-10.1) Microbiology 10/07/16 Urine Culture - Final, Complete 10/07/16 Urine Culture Result 1 (SOPHIE) - Final, Complete Medications Current Medications Ondansetron HCl 4 mg 4 mg PRN Q8HRS PRN IV NAUSEA/VOMITING; Start 10/07/16 at 16:45; Stop 10/08/16 at 16:44; Status DC Sodium Chloride (Iv Sodium Chloride 0.9% 1000ml Bag) 1,000 ml @ 125 mls/hr Q8H IV Last administered on 10/07/16t 16:47; Start 10/07/16 at 16:32; Stop at 13:10; Status DC Acetaminophen 650 mg 650 mg PRN Q4HRS PRN PO FEVER; Start 10/07/16 at 16:45; Stop 10/08/16 at 16:44; Status DC Ceftriaxone Sodium (Rocephin 1gm Ivpb For Omni) 50 ml @ 100 mls/hr 1X ONCE IV Last administered on 10/07/16 17:57; Start 10/07/16 at 17:30; Stop 10/07/16 at 17:59; Status DC Acetaminophen (Tylenol) 650 mg PRN Q4HRS PRN PO MILD PAIN / TEMP; Start at 18:00 Amlodipine Besylate (Norvasc) 5 mg DAILY PO ; Start 10/08/16 at 09:00; Stop at 13:10; Status DC Donepezil HCl (Aricept) 10 mg DAILY PO Last administered on 10/11/16 08:00; Start 10/08/16 at 09:00 Aspirin (Children'S Aspirin) 81 mg DAILY PO Last administered on 10/11/16 08: 01; Start 10/08/16 at 09:00 Multivitamins (Thera M Plus) 1 tab DAILY PO Last administered on 10/11/16 08: 01; Start 10/08/16 at 09:00 Albuterol/ Ipratropium (Duoneb) 3 ml PRN QID PRN NEB WHEEZING; Start 10/07/16 at 18:00; Stop 10/08/16 at 13:14; Status DC Atorvastatin Calcium (Lipitor) 10 mg QHS PO Last administered on 10/11/16 20: 41; Start 10/07/16 at 21:00 Memantine (Namenda) 10 mg BID PO Last administered on 10/11/16 20:41; Start at 21:00 Losartan Potassium (Cozaar) 100 mg DAILY PO ; Start 10/08/16 at 09:00; Stop at 10:55; Status DC Magnesium Hydroxide 2400 mg 2,400 mg PRN DAILY PRN PO CONSTIPATION; Start 10/07 at 18:00 Ceftriaxone Sodium 1 gm/ Sodium Chloride 50 ml @ 100 mls/hr Q24H IV ; Start at 18:00; Stop 10/08/16 at 18:00; Status DC Dextrose 1,000 ml @ 75 mls/hr [id number] IV Last administered on 10/09/16 07:27 ; Start 10/07/16 at 18:30; Stop 10/09/16 at 10:55; Status DC Levothyroxine Sodium (Synthroid) 75 mcg DAILY07 PO Last administered on 08:01; Start 10/08/16 at 07:00 Albuterol/ Ipratropium 3 ml 3 ml RTQID NEB Last administered on 10/12/16 05:59 ; Start 10/08/16 at 16:00 Piperacillin Sod/ Tazobactam Sod 3.375 gm/Sodium Chloride 50 ml @ 100 mls/hr Q8HRS IV Last administered on 10/10/16 06:12; Start 10/08/16 at 14:00; Stop at 12:23; Status DC Vancomycin HCl/ Sodium Chloride (Iv Sodium Chloride 0.9% 250ml) 250 ml @ 250 mls/hr Q24H IV Last administered on 10/10/16 17:06; Start 10/09/16 at 14:00; Stop 10/11/16 at 12:08; Status DC Vancomycin HCl 1 each 1 each PRN DAILY PRN MC SEE COMMENTS Last administered on 10/10/16 14:42; Start 10/08/16 at 13:00; Stop 10/11/16 at 12:08; Status DC Vancomycin HCl/ Sodium Chloride (Iv Sodium Chloride 0.9% 500ml Bag) 500 ml @ 250 mls/hr 1X ONCE IV Last administered on 10/08/16 14:58; Start 10/08/16 at 14:00; Stop 10/08/16 at 15:59; Status DC Albuterol Sulfate (Ventolin Neb Soln) 2.5 mg PRN QID PRN NEB WHEEZING; Start at 13:15 Budesonide (Pulmicort) 0.5 mg RTBID NEB Last administered on 10/12/16 05:59; Start 10/09/16 at 09:30 Losartan Potassium (Cozaar) 50 mg DAILY PO ; Start 10/10/16 at 09:00; Stop 10/10 at 12:30; Status DC Metoprolol Tartrate (Lopressor) 25 mg BID PO Last administered on 10/11/16 20: 42; Start 10/09/16 at 11:00 Fludrocortisone Acetate 0.1 mg 0.1 mg DAILY PO Last administered on 10/11/16 08:01; Start 10/09/16 at 11:00 Amino Acids/ Electrolytes 2,000 ml @ 80 mls/hr Q24H IV ; Start 10/09/16 at 12: 00; Stop 10/09/16 at 12:00; Status DC Amino Acids/ Electrolytes (Clinimix E 2.75%-5% Solution) 2,000 ml @ 80 mls/hr Q24H PRN IV . Last administered on 10/11/16 23:10; Start 10/09/16 at 12:00 Vancomycin HCl 1 each 1X ONCE MC ; Start 10/09/16 at 13:30; Stop 10/09/16 at 13 :31; Status Cancel Vancomycin HCl 1 each 1 each 1X ONCE MC Last administered on 10/10/16 13:30; Start 10/10/16 at 13:30; Stop 10/10/16 at 13:31; Status DC Piperacillin Sod/ Tazobactam Sod/ Sodium Chloride (Zosyn/Iv Sodium Chloride 0.9 % 50ml) 50 ml @ 100 mls/hr Q6HRS IV Last administered on 10/12/16 05:19; Start 10/10/16 at 13:00 Active Scripts Active Levaquin (Levofloxacin) 500 Mg Tablet 1 Tab PO DAILY Reported Aricept (Donepezil Hcl) 10 Mg Tablet 1 Tab PO QHS Cozaar (Losartan Potassium) 100 Mg Tablet 100 Mg PO DAILY Namenda Xr (Memantine Hcl) 28 Mg Cap.spr.24 28 Mg PO DAILY Norvasc (Amlodipine Besylate) 5 Mg Tablet 1 Tab PO DAILY Lovastatin 40 Mg Tablet 1 Tab PO DAILY Acetaminophen 500 Mg Tablet 1 Tab PO QID Duoneb 0.5-3(2.5) Mg/3 Ml (Albuterol/Ipratropium) 3 Ml Ampul.neb 3 Ml NEB QID Seroquel (Quetiapine Fumarate) 25 Mg Tablet 1 Tab PO QHS PRN Aspirin 81 Mg Tab.chew 1 Tab PO DAILY Centrum Silver Tablet (Multivits-Min/Fa/Lycopene/Lut) 1 Each Tablet 1 Each PO DAILY Vitals/I & O Vital Sign - Last 24 Hours 3/19/17 3/19/17 3/19/17 3/19/17 11:00 12:27 14:48 15:23 Temp 97.5 97.8 97.5 97.8 Pulse 67 76 Resp 19 19 B/P 130/67 114/56 Pulse Ox 96 97 97 96 O2 Delivery Room Air Room Air Room Air Room Air 10/11/16 10/11/16 10/11/16 10/11/16 19:00 19:42 20:00 20:42 Temp 98.8 98.8 Pulse 86 86 Resp 20 B/P 111/62 111/62 Pulse Ox 96 94 O2 Delivery Room Air Room Air Room Air 10/11/16 10/11/16 10/12/16 10/12/16 23:00 23:01 03:11 06:00 Temp 99.0 99.0 98.5 99.0 99.0 98.5 Pulse 80 80 81 Resp 20 20 B/P 123/61 123/61 106/56 Pulse Ox 92 92 92 94 O2 Delivery Room Air Room Air Room Air Room Air O2 Flow Rate 2.0 10/12/16 06:00 Pulse Ox 94 O2 Delivery Room Air Intake and Output 10/11/16 10/11/16 10/12/16 15:00 23:00 07:00 Intake Total 250 ml 530 ml Output Total 1 ml 1 ml Balance 250 ml 529 ml -1 ml ISA SCHERER MD Oct 12, 2016 08:51
--- NOTE | 2016-10-12 09:01 | PDOC ---
Infectious Disease Note Subjective Subjective awake, says feeling ok ROS ROS no n/v/d/ Vital Sign Vital Signs Vital Signs Date Time Temp Pulse Resp B/P Pulse Ox O2 Delivery O2 Flow Rate FiO2 10/12/16 06:00 94 Room Air 10/12/16 03:11 98.5 81 20 106/56 98.5 10/11/16 23:01 2.0 Physical Exam PHYSICAL EXAM GENERAL: NAD, Alert HEENT: PERRL, OC/OP NECK: Supple, no JVD, no LN LUNGS: Clear HEART: S1S2, no gallop, no murmur ABD: Soft, NT, no organomegaly, no rebound EXT: No edema, no cyanosis BARREL CLEANER: Alert, SKIN: No rash IV: ok Labs Lab Laboratory Tests Test 10/12/16 03:50 White Blood Count 6.1x10^3/uL (4.0-11.0) Red Blood Count 3.05x10^6/uL (3.50-5.40) Hemoglobin 8.1g/dL (12.0-15.5) Hematocrit 24.9% (36.0-47.0) Mean Corpuscular Volume 82fL (79-100) Mean Corpuscular Hemoglobin 27pg (25-35) Mean Corpuscular Hemoglobin Concent 33g/dL (31-37) Red Cell Distribution Width 16.7% (11.5-14.5) Platelet Count 208x10^3/uL (140-400) Neutrophils (%) (Auto) 51% (31-73) Lymphocytes (%) (Auto) 31% (24-48) Monocytes (%) (Auto) 16% (0-9) Eosinophils (%) (Auto) 2% (0-3) Basophils (%) (Auto) 0% (0-3) Neutrophils # (Auto) 3.1x10^3uL (1.8-7.7) Lymphocytes # (Auto) 1.9x10^3/uL (1.0-4.8) Monocytes # (Auto) 1.0x10^3/uL (0.0-1.1) Eosinophils # (Auto) 0.1x10^3/uL (0.0-0.7) Basophils # (Auto) 0.0x10^3/uL (0.0-0.2) Sodium Level 146mmol/L (136-145) Potassium Level 4.1mmol/L (3.5-5.1) Chloride Level 112mmol/L (98-107) Carbon Dioxide Level 25mmol/L (21-32) Anion Gap 9 (6-14) Blood Urea Nitrogen 21mg/dL (7-20) Creatinine 1.2mg/dL (0.6-1.0) Estimated GFR (Cockcroft-Gault) 51.4 Glucose Level 106mg/dL (70-99) Calcium Level 8.8mg/dL (8.5-10.1) Objective Assessment Hypothermia - improved Leukocytosis. stable PAUL ? Aspiration with abnormal CT scan - Bronch declined S/p syncope -compressions Severe Dementia Plan Plan of Care change iv antibiotics to po augmentin hospice in works d/w family d/w dr Jarad FLEMING,BERNARD Mandel MD Oct 12, 2016 09:01
[2016-10-12] MEDS: ASPIRIN 81 MG TAB.CHEW PO SCH (10:06)
[2016-10-12] MEDS: DONEPEZIL HCL 10 MG TABLET. PO SCH (10:07)
[2016-10-12] MEDS: MEMANTINE 10 MG TABLET. PO SCH ×2 (10:07→20:52)
[2016-10-12] MEDS: MULTIVITAMIN with MINERAL TABLET. PO SCH (10:07)
[2016-10-12] MEDS: FLUDROCORTISONE 0.1 MG TABLET PO SCH (10:07)
[2016-10-12] MEDS: LEVOTHYROXINE 75 MCG TABLET PO SCH (10:09)
[2016-10-12] MEDS: METOPROLOL TART IMMED RELEASE 25 MG TABLET PO SCH ×2 (10:11→20:52)
[2016-10-12] MEDS: AMOXICILLIN/K CLAV 875/125MG TABLET. PO SCH ×2 (10:21→20:51)
--- NOTE | 2016-10-12 11:39 | PDOC ---
Subjective: Subjective: Denies pain. Objective: Objective: Per RN - [employer] eval for aspiration pneumonia, possible DC today. Vital Signs: Vital Signs Date Time Temp Pulse Resp B/P Pulse Ox O2 Delivery O2 Flow Rate FiO2 10/12/16 11:30 Room Air 10/12/16 11:26 97.7 69 14 130/61 96 97.7 10/11/16 23:01 2.0 Labs: Laboratory Tests Test 10/12/16 03:50 White Blood Count 6.1x10^3/uL Red Blood Count 3.05x10^6/uL Hemoglobin 8.1g/dL Hematocrit 24.9% Mean Corpuscular Volume 82fL Mean Corpuscular Hemoglobin 27pg Mean Corpuscular Hemoglobin Concent 33g/dL Red Cell Distribution Width 16.7% Platelet Count 208x10^3/uL Neutrophils (%) (Auto) 51% Lymphocytes (%) (Auto) 31% Monocytes (%) (Auto) 16% Eosinophils (%) (Auto) 2% Basophils (%) (Auto) 0% Neutrophils # (Auto) 3.1x10^3uL Lymphocytes # (Auto) 1.9x10^3/uL Monocytes # (Auto) 1.0x10^3/uL Eosinophils # (Auto) 0.1x10^3/uL Basophils # (Auto) 0.0x10^3/uL Sodium Level 146mmol/L Potassium Level 4.1mmol/L Chloride Level 112mmol/L Carbon Dioxide Level 25mmol/L Anion Gap 9 Blood Urea Nitrogen 21mg/dL Creatinine 1.2mg/dL Estimated GFR (Cockcroft-Gault) 51.4 Glucose Level 106mg/dL Calcium Level 8.8mg/dL PE: GEN: NAD LUNGS: clear anteriorly HEART: S1S2 ABD: S/ND/NT NEURO/PSYCH: awake A/P: Elevated lipase - resolved -no signs of pancreatitis, unremarkable pancreas on CT A/P w/o contrast Aspiration pneumonia -advanced from clears to full liquids today, [employer] eval in process -- Lipase improved. Await PC discussion. Possible DC today - okay per GI. Diet per [employer]. DIO HANSON Oct 12, 2016 11:39
--- NOTE | 2016-10-12 12:12 | PDOC ---
PULMONARY PROGRESS NOTES Subjective more alert, answers some Qs, no sob, has cough, no pain Vitals Vital Signs Date Time Temp Pulse Resp B/P Pulse Ox O2 Delivery O2 Flow Rate FiO2 10/12/16 11:30 Room Air 10/12/16 11:26 97.7 69 14 130/61 96 97.7 10/11/16 23:01 2.0 Comments ros discussed w rn, as mentioned as above other sys otherwise neg General: Alert, Confused HEENT: Other (nc at perrl nose clear) Lungs: Crackles Cardiovascular: S1, S2 Abdomen: Soft, Non-tender Neuro Exam: Alert Extremities: No Edema Skin: Warm Labs Laboratory Tests Test 10/10/16 13:20 10/12/16 03:50 Vancomycin Level Trough 13.7mcg/mL (10.0-20.0) Vancomycin Last Dose Date Vancomycin Last Dose Time White Blood Count 6.1x10^3/uL (4.0-11.0) Red Blood Count 3.05x10^6/uL (3.50-5.40) Hemoglobin 8.1g/dL (12.0-15.5) Hematocrit 24.9% (36.0-47.0) Mean Corpuscular Volume 82fL (79-100) Mean Corpuscular Hemoglobin 27pg (25-35) Mean Corpuscular Hemoglobin Concent 33g/dL (31-37) Red Cell Distribution Width 16.7% (11.5-14.5) Platelet Count 208x10^3/uL (140-400) Neutrophils (%) (Auto) 51% (31-73) Lymphocytes (%) (Auto) 31% (24-48) Monocytes (%) (Auto) 16% (0-9) Eosinophils (%) (Auto) 2% (0-3) Basophils (%) (Auto) 0% (0-3) Neutrophils # (Auto) 3.1x10^3uL (1.8-7.7) Lymphocytes # (Auto) 1.9x10^3/uL (1.0-4.8) Monocytes # (Auto) 1.0x10^3/uL (0.0-1.1) Eosinophils # (Auto) 0.1x10^3/uL (0.0-0.7) Basophils # (Auto) 0.0x10^3/uL (0.0-0.2) Sodium Level 146mmol/L (136-145) Potassium Level 4.1mmol/L (3.5-5.1) Chloride Level 112mmol/L (98-107) Carbon Dioxide Level 25mmol/L (21-32) Anion Gap 9 (6-14) Blood Urea Nitrogen 21mg/dL (7-20) Creatinine 1.2mg/dL (0.6-1.0) Estimated GFR (Cockcroft-Gault) 51.4 Glucose Level 106mg/dL (70-99) Calcium Level 8.8mg/dL (8.5-10.1) Laboratory Tests Test 10/12/16 03:50 White Blood Count 6.1x10^3/uL (4.0-11.0) Red Blood Count 3.05x10^6/uL (3.50-5.40) Hemoglobin 8.1g/dL (12.0-15.5) Hematocrit 24.9% (36.0-47.0) Mean Corpuscular Volume 82fL (79-100) Mean Corpuscular Hemoglobin 27pg (25-35) Mean Corpuscular Hemoglobin Concent 33g/dL (31-37) Red Cell Distribution Width 16.7% (11.5-14.5) Platelet Count 208x10^3/uL (140-400) Neutrophils (%) (Auto) 51% (31-73) Lymphocytes (%) (Auto) 31% (24-48) Monocytes (%) (Auto) 16% (0-9) Eosinophils (%) (Auto) 2% (0-3) Basophils (%) (Auto) 0% (0-3) Neutrophils # (Auto) 3.1x10^3uL (1.8-7.7) Lymphocytes # (Auto) 1.9x10^3/uL (1.0-4.8) Monocytes # (Auto) 1.0x10^3/uL (0.0-1.1) Eosinophils # (Auto) 0.1x10^3/uL (0.0-0.7) Basophils # (Auto) 0.0x10^3/uL (0.0-0.2) Sodium Level 146mmol/L (136-145) Potassium Level 4.1mmol/L (3.5-5.1) Chloride Level 112mmol/L (98-107) Carbon Dioxide Level 25mmol/L (21-32) Anion Gap 9 (6-14) Blood Urea Nitrogen 21mg/dL (7-20) Creatinine 1.2mg/dL (0.6-1.0) Estimated GFR (Cockcroft-Gault) 51.4 Glucose Level 106mg/dL (70-99) Calcium Level 8.8mg/dL (8.5-10.1) Medications Active Scripts Medications Dose Route/Sig Days Date Category Levaquin (Levofloxacin) 500 Mg Tablet 1 Tab PO DAILY 09/22/16 Rx Aricept (Donepezil Hcl) 10 Mg Tablet 1 Tab PO QHS 05/19/16 Reported Cozaar (Losartan Potassium) 100 Mg Tablet 100 Mg PO DAILY 05/19/16 Reported Namenda Xr (Memantine Hcl) 28 Mg Cap.spr.24 28 Mg PO DAILY 05/19/16 Reported Norvasc (Amlodipine Besylate) 5 Mg Tablet 1 Tab PO DAILY 05/19/16 Reported Lovastatin 40 Mg Tablet 1 Tab PO DAILY 05/19/16 Reported Acetaminophen 500 Mg Tablet 1 Tab PO QID 05/19/16 Reported Duoneb 0.5-3(2.5) Mg/3 Ml (Albuterol/Ipratropium) 3 Ml Ampul.neb 3 Ml NEB QID 05/19/16 Reported Seroquel (Quetiapine Fumarate) 25 Mg Tablet 1 Tab PO QHS PRN 05/19/16 Reported Aspirin 81 Mg Tab.chew 1 Tab PO DAILY 05/19/16 Reported Centrum Silver Tablet (Multivits-Min/Fa/Lycopene/Lut) 1 Each Tablet 1 Each PO DAILY 05/19/[address] of chest reviewed. 1. Abnormal material in the left lower lobe bronchus probably due to inflammatory debris, although a neoplastic etiology cannot be excluded. There is associated bronchiectasis and apparent mucus plugging in the left lower lobe. Chronic infection or allergic aspergillosis are possibilities. 2. 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 Impression . 1. Abnormal CT of the chest revealing left lower lobe debris, suspect mucous plugging. The patient has never smoked. There has been no history given of hemoptysis. 2. Possible aspiration pneumonia. 3. Metabolic toxic encephalopathy. 4. Severe Alzheimer's dementia. 5. Hyponatremia. 6. Chronic kidney disease. Plan . PLAN: 1. continue antibiotics. 2. Case discussed with family members by dr caban. They do not wish to be more aggressive than just treating a pneumonia, they declined bronchoscopy and/or repeat CT of the chest. bronchodilator ics discussed w vinh. GINA NETTLES MD Oct 12, 2016 12:12
--- NOTE | 2016-10-12 12:29 | PDOC2 ---
PALLIATIVE CARE Palliative Care Note Palliative Care Consult requested by Dr. Hair to address plan of care and hospice. Diagnosis; Syncopal episode at nursing facility--CPR started --patient regained consciousness; Hypernatremia; Pyuria, mucous impaction of LLLbronchi; HTN; Hyperlipidemia; CKD III; elevated lipase. Patient alert. Sitting up in chair. Communicates in short sentences. Met with daughter Rebeka HARTLEY; sister Kylie and and spoke with Maxi per phone earlier but could not reach her at the time of the meeting Family has spoke with Dr. Hair. Understands medical condition. Has spoke with Hospice prior to this incident. Per family, patient would need further decline at that time. Family would like patient to go to [facility]. They have been in contact with them They request Hospice. Information faxed and phone to them Frances morejon. Has spoke with family and will fax information to [facility]. Outside the hospital DNR/DNI signed by family. Await outcome of Group Home decision Family requests Hospice. VINCENT EDUARDO Oct 12, 2016 12:29
--- NOTE | 2016-10-12 16:15 | RAD ---
AP chest, 10/12/2016: History: Follow-up pneumonia Comparison is made to a study from 10/07/2016. 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 The heart is at the upper limits of normal in size. There is tortuosity and calcific plaquing of the thoracic aorta. Mild to moderate left basilar opacities have worsened. There is now mild discoid atelectasis in the right base. The upper lung mullins are clear. No pleural fluid is seen. IMPRESSION: 1. Worsening left basilar opacities compatible with bronchiectasis and pneumonitis. 2. Mild right basilar atelectasis has developed.
[2016-10-12] MEDS: ATORVASTATIN CALCIUM 10 MG TABLET. PO SCH (20:51)
[2016-10-13 03:00] VITALS: BP 137/77
[2016-10-13] MEDS: LEVOTHYROXINE 75 MCG TABLET PO SCH (06:19)
[2016-10-13 07:00] VITALS: BP 138/74
[2016-10-13] MEDS: BUDESONIDE 0.5 MG/2 ML NEBU NEB SCH ×2 (07:29→20:24)
[2016-10-13] MEDS: IPRATRPIUM/ALBUTEROL 0.5/2.5MG 3 ML NEBU. NEB SCH ×4 (07:29→20:24)
[2016-10-13] MEDS: FLUDROCORTISONE 0.1 MG TABLET PO SCH (08:07)
[2016-10-13] MEDS: AMOXICILLIN/K CLAV 875/125MG TABLET. PO SCH ×2 (08:07→20:40)
[2016-10-13] MEDS: MEMANTINE 10 MG TABLET. PO SCH ×2 (08:07→20:40)
[2016-10-13] MEDS: ASPIRIN 81 MG TAB.CHEW PO SCH (08:07)
[2016-10-13] MEDS: METOPROLOL TART IMMED RELEASE 25 MG TABLET PO SCH ×2 (08:08→20:40)
[2016-10-13] MEDS: DONEPEZIL HCL 10 MG TABLET. PO SCH (08:08)
[2016-10-13] MEDS: MULTIVITAMIN with MINERAL TABLET. PO SCH (08:08)
--- NOTE | 2016-10-13 08:58 | PDOC ---
PROGRESS NOTES Subjective Subjective alert and eating pureed thin liquid diet per ST. afebrile. lab reviewed. Objective Objective Vital Signs Date Time Temp Pulse Resp B/P Pulse Ox O2 Delivery O2 Flow Rate FiO2 10/13/16 08:25 Room Air 10/13/16 08:08 69 138/74 10/13/16 07:29 97 10/13/16 03:00 98.3 18 98.3 10/12/16 15:23 2.0 Intake and Output 10/13/16 07:00 Intake Total 1853 ml Balance 1853 ml Intake Oral 300 ml IV Total 1553 ml # Voids 7 # Bowel Movements 2 Physical Exam Abdomen: Soft Heart: Regular rate, Normal S1, Normal S2 Extremities: No edema General: Alert HEENT: Atraumatic Lungs: Other (clear anteriorly) Neuro: Normal speech Psych/Mental Status: Mood NL Skin: No rashes Assessment Assessment Problems Medical Problems:1. Syncopal episode. 2. Hypernatremia. 3. Pyuria. urine culture grew dolly 25-50K. not significant 4. aspiration pneumonia clinically improved 6. Hyperlipidemia. 7. Alzheimer disease. 8. Hyperlipidemia. 9. Chronic kidney disease stage III. 10. Elevated lipase now normal PAD left ankle ulcer metabolic encephalopathy mild protein calorie malnutrition subclinical hypothyroidism (1) Syncope Status: Acute Plan Plan of Care dismiss today to intermediate with hospice Comment Review of Relevant I have reviewed the following items kamar (where applicable) has been applied. Labs Laboratory Tests Test 10/12/16 03:50 White Blood Count 6.1x10^3/uL (4.0-11.0) Red Blood Count 3.05x10^6/uL (3.50-5.40) Hemoglobin 8.1g/dL (12.0-15.5) Hematocrit 24.9% (36.0-47.0) Mean Corpuscular Volume 82fL (79-100) Mean Corpuscular Hemoglobin 27pg (25-35) Mean Corpuscular Hemoglobin Concent 33g/dL (31-37) Red Cell Distribution Width 16.7% (11.5-14.5) Platelet Count 208x10^3/uL (140-400) Neutrophils (%) (Auto) 51% (31-73) Lymphocytes (%) (Auto) 31% (24-48) Monocytes (%) (Auto) 16% (0-9) Eosinophils (%) (Auto) 2% (0-3) Basophils (%) (Auto) 0% (0-3) Neutrophils # (Auto) 3.1x10^3uL (1.8-7.7) Lymphocytes # (Auto) 1.9x10^3/uL (1.0-4.8) Monocytes # (Auto) 1.0x10^3/uL (0.0-1.1) Eosinophils # (Auto) 0.1x10^3/uL (0.0-0.7) Basophils # (Auto) 0.0x10^3/uL (0.0-0.2) Sodium Level 146mmol/L (136-145) Potassium Level 4.1mmol/L (3.5-5.1) Chloride Level 112mmol/L (98-107) Carbon Dioxide Level 25mmol/L (21-32) Anion Gap 9 (6-14) Blood Urea Nitrogen 21mg/dL (7-20) Creatinine 1.2mg/dL (0.6-1.0) Estimated GFR (Cockcroft-Gault) 51.4 Glucose Level 106mg/dL (70-99) Calcium Level 8.8mg/dL (8.5-10.1) Microbiology 10/07/16 Urine Culture - Final, Complete 10/07/16 Urine Culture Result 1 (SOPHIE) - Final, Complete Medications Current Medications Ondansetron HCl 4 mg 4 mg PRN Q8HRS PRN IV NAUSEA/VOMITING; Start 10/07/16 at 16:45; Stop 10/08/16 at 16:44; Status DC Sodium Chloride (Iv Sodium Chloride 0.9% 1000ml Bag) 1,000 ml @ 125 mls/hr Q8H IV Last administered on 10/07/16 16:47; Start 10/07/16 at 16:32; Stop at 13:10; Status DC Acetaminophen 650 mg 650 mg PRN Q4HRS PRN PO FEVER; Start 10/07/16 at 16:45; Stop 10/08/16 at 16:44; Status DC Ceftriaxone Sodium (Rocephin 1gm Ivpb For Omni) 50 ml @ 100 mls/hr 1X ONCE IV Last administered on 10/07/16 17:57; Start 10/07/16 at 17:30; Stop 10/07/16 at 17:59; Status DC Acetaminophen (Tylenol) 650 mg PRN Q4HRS PRN PO MILD PAIN / TEMP; Start at 18:00 Amlodipine Besylate (Norvasc) 5 mg DAILY PO ; Start 10/08/16 at 09:00; Stop at 13:10; Status DC Donepezil HCl (Aricept) 10 mg DAILY PO Last administered on 10/13/16 08:08; Start 10/08/16 at 09:00 Aspirin (Children'S Aspirin) 81 mg DAILY PO Last administered on 10/13/16 08: 07; Start 10/08/16 at 09:00 Multivitamins (Thera M Plus) 1 tab DAILY PO Last administered on 10/13/16 08: 08; Start 10/08/16 at 09:00 Albuterol/ Ipratropium (Duoneb) 3 ml PRN QID PRN NEB WHEEZING; Start 10/07/16 at 18:00; Stop 10/08/16 at 13:14; Status DC Atorvastatin Calcium (Lipitor) 10 mg QHS PO Last administered on 10/12/16 20: 51; Start 10/07/16 at 21:00 Memantine (Namenda) 10 mg BID PO Last administered on 10/13/16 08:07; Start at 21:00 Losartan Potassium (Cozaar) 100 mg DAILY PO ; Start 10/08/16 at 09:00; Stop at 10:55; Status DC Magnesium Hydroxide 2400 mg 2,400 mg PRN DAILY PRN PO CONSTIPATION; Start 10/07 at 18:00 Ceftriaxone Sodium 1 gm/ Sodium Chloride 50 ml @ 100 mls/hr Q24H IV ; Start at 18:00; Stop 10/08/16 at 18:00; Status DC Dextrose 1,000 ml @ 75 mls/hr [id number] IV Last administered on 10/09/16 07:27 ; Start 10/07/16 at 18:30; Stop 10/09/16 at 10:55; Status DC Levothyroxine Sodium (Synthroid) 75 mcg DAILY07 PO Last administered on 06:19; Start 10/08/16 at 07:00 Albuterol/ Ipratropium 3 ml 3 ml RTQID NEB Last administered on 10/13/16 07:29 ; Start 10/08/16 at 16:00 Piperacillin Sod/ Tazobactam Sod 3.375 gm/Sodium Chloride 50 ml @ 100 mls/hr Q8HRS IV Last administered on 10/10/16 06:12; Start 10/08/16 at 14:00; Stop at 12:23; Status DC Vancomycin HCl/ Sodium Chloride (Iv Sodium Chloride 0.9% 250ml) 250 ml @ 250 mls/hr Q24H IV Last administered on 10/10/16 17:06; Start 10/09/16 at 14:00; Stop 10/11/16 at 12:08; Status DC Vancomycin HCl 1 each 1 each PRN DAILY PRN MC SEE COMMENTS Last administered on 10/10/16 14:42; Start 10/08/16 at 13:00; Stop 10/11/16 at 12:08; Status DC Vancomycin HCl/ Sodium Chloride (Iv Sodium Chloride 0.9% 500ml Bag) 500 ml @ 250 mls/hr 1X ONCE IV Last administered on 10/08/16 14:58; Start 10/08/16 at 14:00; Stop 10/08/16 at 15:59; Status DC Albuterol Sulfate (Ventolin Neb Soln) 2.5 mg PRN QID PRN NEB WHEEZING; Start at 13:15 Budesonide (Pulmicort) 0.5 mg RTBID NEB Last administered on 10/13/16 07:29; Start 10/09/16 at 09:30 Losartan Potassium (Cozaar) 50 mg DAILY PO ; Start 10/10/16 at 09:00; Stop 10/10 at 12:30; Status DC Metoprolol Tartrate (Lopressor) 25 mg BID PO Last administered on 10/13/16 08: 08; Start 10/09/16 at 11:00 Fludrocortisone Acetate 0.1 mg 0.1 mg DAILY PO Last administered on 10/13/16 08:07; Start 10/09/16 at 11:00 Amino Acids/ Electrolytes 2,000 ml @ 80 mls/hr Q24H IV ; Start 10/09/16 at 12: 00; Stop 10/09/16 at 12:00; Status DC Amino Acids/ Electrolytes (Clinimix E 2.75%-5% Solution) 2,000 ml @ 80 mls/hr Q24H PRN IV . Last administered on 10/11/16 23:10; Start 10/09/16 at 12:00 Vancomycin HCl 1 each 1X ONCE MC ; Start 10/09/16 at 13:30; Stop 10/09/16 at 13 :31; Status Cancel Vancomycin HCl 1 each 1 each 1X ONCE MC Last administered on 10/10/16 13:30; Start 10/10/16 at 13:30; Stop 10/10/16 at 13:31; Status DC Piperacillin Sod/ Tazobactam Sod/ Sodium Chloride (Zosyn/Iv Sodium Chloride 0.9 % 50ml) 50 ml @ 100 mls/hr Q6HRS IV Last administered on 10/12/16 05:19; Start 10/10/16 at 13:00; Stop 10/12/16 at 09:03; Status DC Amoxicillin/ Clavulanate Potassium (Augmentin 875/ 125mg) 1 tab BID PO Last administered on 10/13/16 08:07; Start 10/12/16 at 09:30 Active Scripts Active Levaquin (Levofloxacin) 500 Mg Tablet 1 Tab PO DAILY Reported Aricept (Donepezil Hcl) 10 Mg Tablet 1 Tab PO QHS Cozaar (Losartan Potassium) 100 Mg Tablet 100 Mg PO DAILY Namenda Xr (Memantine Hcl) 28 Mg Cap.spr.24 28 Mg PO DAILY Norvasc (Amlodipine Besylate) 5 Mg Tablet 1 Tab PO DAILY Lovastatin 40 Mg Tablet 1 Tab PO DAILY Acetaminophen 500 Mg Tablet 1 Tab PO QID Duoneb 0.5-3(2.5) Mg/3 Ml (Albuterol/Ipratropium) 3 Ml Ampul.neb 3 Ml NEB QID Seroquel (Quetiapine Fumarate) 25 Mg Tablet 1 Tab PO QHS PRN Aspirin 81 Mg Tab.chew 1 Tab PO DAILY Centrum Silver Tablet (Multivits-Min/Fa/Lycopene/Lut) 1 Each Tablet 1 Each PO DAILY Vitals/I & O Vital Sign - Last 24 Hours 10/12/16 10/12/16 10/12/16 10/12/16 10:11 11:26 11:30 15:13 Temp 97.7 97.7 Pulse 73 69 Resp 14 B/P 140/84 130/61 Pulse Ox 96 O2 Delivery Room Air Room Air Room Air 10/12/16 10/12/16 10/12/16 10/12/16 15:19 15:23 19:00 19:13 Temp 97.8 98.0 98.2 97.8 98.0 98.2 Pulse 69 83 75 Resp 18 18 B/P 142/84 133/68 125/71 Pulse Ox 97 94 98 100 O2 Delivery Room Air Room Air O2 Flow Rate 2.0 10/12/16 10/12/16 10/12/16 10/12/16 19:15 19:45 20:52 23:00 Temp 98.1 98.1 Pulse 75 76 Resp 18 B/P 125/71 140/84 Pulse Ox 100 99 O2 Delivery Room Air Room Air 10/13/16 10/13/16 10/13/16 10/13/16 03:00 07:29 08:08 08:25 Temp 98.3 98.3 Pulse 75 69 Resp 18 B/P 137/77 138/74 Pulse Ox 97 97 O2 Delivery Room Air Room Air Intake and Output 10/12/16 10/12/16 10/13/16 15:00 23:00 07:00 Intake Total 300 ml 1553 ml Balance 300 ml 1553 ml ISA SCHERER MD Oct 13, 2016 08:58
--- NOTE | 2016-10-13 09:05 | DISCH ---
DISCHARGE INSTRUCTIONS Condition on Discharge Condition on Discharge: Stable Activity After Discharge Activity Instructions for Disc: Other, see below Other activity instructions: up to wheelchair. ambulate with walker with assistance Diet after Discharge Diet after Discharge: Regular Additional Diet Restrictions: pureed thin liquids with straw. 1:1 feeding assist Contacting the DRHarjinder after DC Call your doctor for: If your condition worsens Follow-Up Follow up with: house physician ISA SCHERER MD Oct 13, 2016 09:05
--- NOTE | 2016-10-13 09:11 | PDOC ---
Provider Note Provider Note discharge summary dictated # [id number] ISA SCHERER MD Oct 13, 2016 09:11
--- NOTE | 2016-10-13 10:24 | PDOC ---
G I PROGRESS NOTE Subjective No complaints. Apparently eating well. Objective Note plans for discharge. Physical Exam Lungs clear. RRR Abdomen soft, not tender nor distended. Review of Relevant I have reviewed the following items kamar (where applicable) has been applied. Labs Laboratory Tests Test 10/12/16 03:50 White Blood Count 6.1x10^3/uL (4.0-11.0) Red Blood Count 3.05x10^6/uL (3.50-5.40) Hemoglobin 8.1g/dL (12.0-15.5) Hematocrit 24.9% (36.0-47.0) Mean Corpuscular Volume 82fL (79-100) Mean Corpuscular Hemoglobin 27pg (25-35) Mean Corpuscular Hemoglobin Concent 33g/dL (31-37) Red Cell Distribution Width 16.7% (11.5-14.5) Platelet Count 208x10^3/uL (140-400) Neutrophils (%) (Auto) 51% (31-73) Lymphocytes (%) (Auto) 31% (24-48) Monocytes (%) (Auto) 16% (0-9) Eosinophils (%) (Auto) 2% (0-3) Basophils (%) (Auto) 0% (0-3) Neutrophils # (Auto) 3.1x10^3uL (1.8-7.7) Lymphocytes # (Auto) 1.9x10^3/uL (1.0-4.8) Monocytes # (Auto) 1.0x10^3/uL (0.0-1.1) Eosinophils # (Auto) 0.1x10^3/uL (0.0-0.7) Basophils # (Auto) 0.0x10^3/uL (0.0-0.2) Sodium Level 146mmol/L (136-145) Potassium Level 4.1mmol/L (3.5-5.1) Chloride Level 112mmol/L (98-107) Carbon Dioxide Level 25mmol/L (21-32) Anion Gap 9 (6-14) Blood Urea Nitrogen 21mg/dL (7-20) Creatinine 1.2mg/dL (0.6-1.0) Estimated GFR (Cockcroft-Gault) 51.4 Glucose Level 106mg/dL (70-99) Calcium Level 8.8mg/dL (8.5-10.1) Microbiology 10/07/16 Urine Culture - Final, Complete 10/07/16 Urine Culture Result 1 (SOPHIE) - Final, Complete Medications Current Medications Ondansetron HCl 4 mg 4 mg PRN Q8HRS PRN IV NAUSEA/VOMITING; Start 10/07/16 at 16:45; Stop 10/08/16 at 16:44; Status DC Sodium Chloride (Iv Sodium Chloride 0.9% 1000ml Bag) 1,000 ml @ 125 mls/hr Q8H IV Last administered on 10/07/16 16:47; Start 10/07/16 at 16:32; Stop at 13:10; Status DC Acetaminophen 650 mg 650 mg PRN Q4HRS PRN PO FEVER; Start 10/07/16 at 16:45; Stop 10/08/16 at 16:44; Status DC Ceftriaxone Sodium (Rocephin 1gm Ivpb For Omni) 50 ml @ 100 mls/hr 1X ONCE IV Last administered on 10/07/16 17:57; Start 10/07/16 at 17:30; Stop 10/07/16 at 17:59; Status DC Acetaminophen (Tylenol) 650 mg PRN Q4HRS PRN PO MILD PAIN / TEMP; Start at 18:00 Amlodipine Besylate (Norvasc) 5 mg DAILY PO ; Start 10/08/16 at 09:00; Stop at 13:10; Status DC Donepezil HCl (Aricept) 10 mg DAILY PO Last administered on 10/13/16 08:08; Start 10/08/16 at 09:00 Aspirin (Children'S Aspirin) 81 mg DAILY PO Last administered on 10/13/16 08: 07; Start 10/08/16 at 09:00 Multivitamins (Thera M Plus) 1 tab DAILY PO Last administered on 10/13/16 08: 08; Start 10/08/16 at 09:00 Albuterol/ Ipratropium (Duoneb) 3 ml PRN QID PRN NEB WHEEZING; Start 10/07/16 at 18:00; Stop 10/08/16 at 13:14; Status DC Atorvastatin Calcium (Lipitor) 10 mg QHS PO Last administered on 10/12/16 20: 51; Start 10/07/16 at 21:00 Memantine (Namenda) 10 mg BID PO Last administered on 10/13/16 08:07; Start at 21:00 Losartan Potassium (Cozaar) 100 mg DAILY PO ; Start 10/08/16 at 09:00; Stop at 10:55; Status DC Magnesium Hydroxide 2400 mg 2,400 mg PRN DAILY PRN PO CONSTIPATION; Start 10/07 at 18:00 Ceftriaxone Sodium 1 gm/ Sodium Chloride 50 ml @ 100 mls/hr Q24H IV ; Start at 18:00; Stop 10/08/16 at 18:00; Status DC Dextrose 1,000 ml @ 75 mls/hr [id number] IV Last administered on 10/09/16 07:27 ; Start 10/07/16 at 18:30; Stop 10/09/16 at 10:55; Status DC Levothyroxine Sodium (Synthroid) 75 mcg DAILY07 PO Last administered on 06:19; Start 10/08/16 at 07:00 Albuterol/ Ipratropium 3 ml 3 ml RTQID NEB Last administered on 10/13/16 07:29 ; Start 10/08/16 at 16:00 Piperacillin Sod/ Tazobactam Sod 3.375 gm/Sodium Chloride 50 ml @ 100 mls/hr Q8HRS IV Last administered on 10/10/16 06:12; Start 10/08/16 at 14:00; Stop at 12:23; Status DC Vancomycin HCl/ Sodium Chloride (Iv Sodium Chloride 0.9% 250ml) 250 ml @ 250 mls/hr Q24H IV Last administered on 10/10/16 17:06; Start 10/09/16 at 14:00; Stop 10/11/16 at 12:08; Status DC Vancomycin HCl 1 each 1 each PRN DAILY PRN MC SEE COMMENTS Last administered on 10/10/16 14:42; Start 10/08/16 at 13:00; Stop 10/11/16 at 12:08; Status DC Vancomycin HCl/ Sodium Chloride (Iv Sodium Chloride 0.9% 500ml Bag) 500 ml @ 250 mls/hr 1X ONCE IV Last administered on 10/08/16 14:58; Start 10/08/16 at 14:00; Stop 10/08/16 at 15:59; Status DC Albuterol Sulfate (Ventolin Neb Soln) 2.5 mg PRN QID PRN NEB WHEEZING; Start at 13:15 Budesonide (Pulmicort) 0.5 mg RTBID NEB Last administered on 10/13/16 07:29; Start 10/09/16 at 09:30 Losartan Potassium (Cozaar) 50 mg DAILY PO ; Start 10/10/16 at 09:00; Stop 10/10 at 12:30; Status DC Metoprolol Tartrate (Lopressor) 25 mg BID PO Last administered on 10/13/16 08: 08; Start 10/09/16 at 11:00 Fludrocortisone Acetate 0.1 mg 0.1 mg DAILY PO Last administered on 10/13/16 08:07; Start 10/09/16 at 11:00 Amino Acids/ Electrolytes 2,000 ml @ 80 mls/hr Q24H IV ; Start 10/09/16 at 12: 00; Stop 10/09/16 at 12:00; Status DC Amino Acids/ Electrolytes (Clinimix E 2.75%-5% Solution) 2,000 ml @ 80 mls/hr Q24H PRN IV . Last administered on 10/11/16 23:10; Start 10/09/16 at 12:00; Stop 10/13/16 at 09:12; Status DC Vancomycin HCl 1 each 1X ONCE MC ; Start 10/09/16 at 13:30; Stop 10/09/16 at 13 :31; Status Cancel Vancomycin HCl 1 each 1 each 1X ONCE MC Last administered on 10/10/16 13:30; Start 10/10/16 at 13:30; Stop 10/10/16 at 13:31; Status DC Piperacillin Sod/ Tazobactam Sod/ Sodium Chloride (Zosyn/Iv Sodium Chloride 0.9 % 50ml) 50 ml @ 100 mls/hr Q6HRS IV Last administered on 10/12/16 05:19; Start 10/10/16 at 13:00; Stop 10/12/16 at 09:03; Status DC Amoxicillin/ Clavulanate Potassium (Augmentin 875/ 125mg) 1 tab BID PO Last administered on 10/13/16t 08:07; Start 10/12/16 at 09:30 Active Scripts Active Levaquin (Levofloxacin) 500 Mg Tablet 1 Tab PO DAILY Reported Aricept (Donepezil Hcl) 10 Mg Tablet 1 Tab PO QHS Cozaar (Losartan Potassium) 100 Mg Tablet 100 Mg PO DAILY Namenda Xr (Memantine Hcl) 28 Mg Cap.spr.24 28 Mg PO DAILY Norvasc (Amlodipine Besylate) 5 Mg Tablet 1 Tab PO DAILY Lovastatin 40 Mg Tablet 1 Tab PO DAILY Acetaminophen 500 Mg Tablet 1 Tab PO QID Duoneb 0.5-3(2.5) Mg/3 Ml (Albuterol/Ipratropium) 3 Ml Ampul.neb 3 Ml NEB QID Seroquel (Quetiapine Fumarate) 25 Mg Tablet 1 Tab PO QHS PRN Aspirin 81 Mg Tab.chew 1 Tab PO DAILY Centrum Silver Tablet (Multivits-Min/Fa/Lycopene/Lut) 1 Each Tablet 1 Each PO DAILY Vitals/I & O Vital Sign - Last 24 Hours 10/12/16 10/12/16 10/12/16 10/12/16 11:26 11:30 15:13 15:19 Temp 97.7 97.8 97.7 97.8 Pulse 69 69 Resp 14 18 B/P 130/61 142/84 Pulse Ox 96 97 O2 Delivery Room Air Room Air Room Air 10/12/16 10/12/16 10/12/16 10/12/16 15:23 19:00 19:13 19:15 Temp 98.0 98.2 98.0 98.2 Pulse 83 75 Resp 18 B/P 133/68 125/71 Pulse Ox 94 98 100 100 O2 Delivery Room Air Room Air Room Air O2 Flow Rate 2.0 10/12/16 10/12/16 10/12/16 10/13/16 19:45 20:52 23:00 03:00 Temp 98.1 98.3 98.1 98.3 Pulse 75 76 75 Resp 18 18 B/P 125/71 140/84 137/77 Pulse Ox 99 97 O2 Delivery Room Air 10/13/16 10/13/16 10/13/16 10/13/16 07:00 07:29 08:08 08:25 Temp 97.5 97.5 Pulse 69 69 Resp 19 B/P 138/74 138/74 Pulse Ox 93 97 O2 Delivery Nasal Cannula Room Air Room Air O2 Flow Rate 2.0 Intake and Output 10/12/16 10/12/16 10/13/16 15:00 23:00 07:00 Intake Total 300 ml 1553 ml Balance 300 ml 1553 ml Problem List Problems Medical Problems: (1) Pneumonia Status: Acute (2) Syncope Status: Acute Assessment Stable GI-muñoz. Plan of Care Note Agree with discharge. F/u with us prn. ISA ENCARNACION MD Oct 13, 2016 10:24
--- NOTE | 2016-10-13 10:41 | PDOC ---
PULMONARY PROGRESS NOTES Subjective NO RESP DISTRESS Vitals Vital Signs Date Time Temp Pulse Resp B/P Pulse Ox O2 Delivery O2 Flow Rate FiO2 10/13/16 08:25 Room Air 10/13/16 08:08 69 138/74 10/13/16 07:29 97 10/13/16 07:00 97.5 19 2.0 97.5 General: Alert, Confused HEENT: Other (nc at perrl nose clear) Lungs: Crackles Cardiovascular: S1, S2 Abdomen: Soft, Non-tender Neuro Exam: Alert Extremities: No Edema Skin: Warm Labs Laboratory Tests Test 10/12/16 03:50 White Blood Count 6.1x10^3/uL (4.0-11.0) Red Blood Count 3.05x10^6/uL (3.50-5.40) Hemoglobin 8.1g/dL (12.0-15.5) Hematocrit 24.9% (36.0-47.0) Mean Corpuscular Volume 82fL (79-100) Mean Corpuscular Hemoglobin 27pg (25-35) Mean Corpuscular Hemoglobin Concent 33g/dL (31-37) Red Cell Distribution Width 16.7% (11.5-14.5) Platelet Count 208x10^3/uL (140-400) Neutrophils (%) (Auto) 51% (31-73) Lymphocytes (%) (Auto) 31% (24-48) Monocytes (%) (Auto) 16% (0-9) Eosinophils (%) (Auto) 2% (0-3) Basophils (%) (Auto) 0% (0-3) Neutrophils # (Auto) 3.1x10^3uL (1.8-7.7) Lymphocytes # (Auto) 1.9x10^3/uL (1.0-4.8) Monocytes # (Auto) 1.0x10^3/uL (0.0-1.1) Eosinophils # (Auto) 0.1x10^3/uL (0.0-0.7) Basophils # (Auto) 0.0x10^3/uL (0.0-0.2) Sodium Level 146mmol/L (136-145) Potassium Level 4.1mmol/L (3.5-5.1) Chloride Level 112mmol/L (98-107) Carbon Dioxide Level 25mmol/L (21-32) Anion Gap 9 (6-14) Blood Urea Nitrogen 21mg/dL (7-20) Creatinine 1.2mg/dL (0.6-1.0) Estimated GFR (Cockcroft-Gault) 51.4 Glucose Level 106mg/dL (70-99) Calcium Level 8.8mg/dL (8.5-10.1) Medications Active Scripts Medications Dose Route/Sig Days Date Category Levaquin (Levofloxacin) 500 Mg Tablet 1 Tab PO DAILY 09/22/16 Rx Aricept (Donepezil Hcl) 10 Mg Tablet 1 Tab PO QHS 05/19/16 Reported Cozaar (Losartan Potassium) 100 Mg Tablet 100 Mg PO DAILY 05/19/16 Reported Namenda Xr (Memantine Hcl) 28 Mg Cap.spr.24 28 Mg PO DAILY 05/19/16 Reported Norvasc (Amlodipine Besylate) 5 Mg Tablet 1 Tab PO DAILY 05/19/16 Reported Lovastatin 40 Mg Tablet 1 Tab PO DAILY 05/19/16 Reported Acetaminophen 500 Mg Tablet 1 Tab PO QID 05/19/16 Reported Duoneb 0.5-3(2.5) Mg/3 Ml (Albuterol/Ipratropium) 3 Ml Ampul.neb 3 Ml NEB QID 05/19/16 Reported Seroquel (Quetiapine Fumarate) 25 Mg Tablet 1 Tab PO QHS PRN 05/19/16 Reported Aspirin 81 Mg Tab.chew 1 Tab PO DAILY 05/19/16 Reported Centrum Silver Tablet (Multivits-Min/Fa/Lycopene/Lut) 1 Each Tablet 1 Each PO DAILY 05/19/[address] of chest reviewed. 1. Abnormal material in the left lower lobe bronchus probably due to inflammatory debris, although a neoplastic etiology cannot be excluded. There is associated bronchiectasis and apparent mucus plugging in the left lower lobe. Chronic infection or allergic aspergillosis are possibilities. 2. 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 Impression . 1. Abnormal CT of the chest revealing left lower lobe debris, suspect mucous plugging. The patient has never smoked. There has been no history given of hemoptysis. 2. Possible aspiration pneumonia. 3. Metabolic toxic encephalopathy. 4. Severe Alzheimer's dementia. 5. Hyponatremia. 6. Chronic kidney disease. Plan . D/W DR SCHERER D/C GINA ULLOA MD Oct 13, 2016 10:41
[2016-10-13 11:00] VITALS: BP 132/69
--- NOTE | 2016-10-13 11:39 | DS ---
DATE OF DISCHARGE: 10/13/2016 CONSULTANTS: Dr. Dorian Norris, Dr. Avalos, Dr. Hines, Dr. Willingham, Dr. Valdez, and Dr. Humberto Rendon. FINAL DIAGNOSES: 1. Syncopal episode, most likely from postural hypotension. 2. Aspiration pneumonia. 3. Oropharyngeal dysphagia. 4. Metabolic encephalopathy. 5. Hypernatremia 6. Hyperlipidemia. 7. Alzheimer disease. 8. Chronic kidney disease stage 3. 9. Elevated lipase, which eventually normalized due to unknown etiology. 10. Peripheral arterial disease. 11. Left ankle ulcer. 12. Metabolic encephalopathy. 13. Mild protein-calorie malnutrition. 14. Subclinical hypothyroidism. HOSPITAL COURSE: The patient is an 86-year-old -[place] female, resident of a chcf, with a history of hypertension, hyperlipidemia, Alzheimer disease, who was admitted to [facility] by paramedics through the Emergency Room on 10/07/2016 due to a syncopal episode. She apparently was sitting on finished lounge when she had a syncopal episode and collapsed. shelter employee did not feel a pulse and she had CPR for about 10 minutes eventually sent to the [facility] Emergency Room where she was hemodynamically stable, but could not give any history due to her advanced Alzheimer disease. Electrocardiogram showed no acute abnormality. Serum sodium was increased to 147. Serum lipase was increased to 575. TSH increased at 8.8 consistent with subclinical hypothyroidism. She was started on levothyroxine. Troponin level was negative. A chest x-ray was unremarkable. She was admitted to the hospital, had some pyuria, started on Rocephin IV and she is a do not resuscitate. She was noted to have aspiration pneumonia, was treated with IV antibiotics, seen in consultation by Dr. Humberto Rendon for Infectious Disease. She received nebulizer treatments in consultation by Dr. Avalos for Pulmonary. She also was seen by Dr. Norris for elevated lipase, which she felt was just the inconsequential lab abnormality which normalized, amylase was normal. A CAT scan of abdomen was negative for acute pancreatitis. Seen by Dr. Hines for her syncopal episode, thinking that it was postural hypotension as her echocardiogram showed a preserved left ventricular ejection fraction, and she was started on Florinef and metoprolol. Seen by Dr. Willingham, as she has some peripheral arterial disease noted on arterial Doppler, which was not severe and he recommended conservative treatment. She did have a left ankle ulcer that was treated topically, and she had vascular boots ordered. Seen by Dr. Humberto Rendon and Dr. Valdez for Infectious Disease for aspiration pneumonia; she received IV antibiotics and eventually switched to oral Augmentin. She received TPN. She was seen by speech therapy. Her diet was advanced to a pureed thin liquid diet with a straw and she was eating and drinking much better. She had a metabolic encephalopathy, which eventually improved and she was more alert . She is a do not resuscitate. The family wished [facility] and she will be dismissed to a [facility] later today with [facility] and dismissed on Tylenol 650 mg every 4 hours p.r.n.; albuterol nebulizer treatments q.i.d. and every 4 hours p.r.n. for 5 days; Augmentin 875 mg 1 b.i.d. for 5 days to be discontinued 10/18/2016; aspirin 81 mg every day; atorvastatin 10 mg at bedtime; Aricept 10 mg every day; Florinef 0.1 mg every day; levothyroxine 75 mcg every day; Namenda 10 mg b.i.d.; metoprolol tartrate 25 mg b.i.d.; multiple vitamin with minerals once a day. She will be dismissed to the [facility] with [facility] and she is a do not resuscitate, on a pureed thin liquid diet with straws and she will have 1:1 assistance for her feeding. DORIAN SCHERER MD DR: [place]/jason JOB#: [id number] / [id number]
[2016-10-13 15:00] VITALS: BP 128/76
[2016-10-13 19:47] VITALS: BP 128/67
[2016-10-13] MEDS: ATORVASTATIN CALCIUM 10 MG TABLET. PO SCH (20:40)
[2016-10-13 23:20] VITALS: BP 122/72
[2016-10-14 02:59] VITALS: BP 126/74
[2016-10-14] MEDS: LEVOTHYROXINE 75 MCG TABLET PO SCH (06:03)
[2016-10-14 07:00] VITALS: BP 110/56
[2016-10-14] MEDS: IPRATRPIUM/ALBUTEROL 0.5/2.5MG 3 ML NEBU. NEB SCH ×2 (07:45→12:00)
[2016-10-14] MEDS: BUDESONIDE 0.5 MG/2 ML NEBU NEB SCH (07:45)
[2016-10-14] MEDS: MEMANTINE 10 MG TABLET. PO SCH (09:29)
[2016-10-14] MEDS: ASPIRIN 81 MG TAB.CHEW PO SCH (09:29)
[2016-10-14] MEDS: FLUDROCORTISONE 0.1 MG TABLET PO SCH (09:29)
[2016-10-14] MEDS: DONEPEZIL HCL 10 MG TABLET. PO SCH (09:30)
[2016-10-14] MEDS: MULTIVITAMIN with MINERAL TABLET. PO SCH (09:30)
[2016-10-14] MEDS: AMOXICILLIN/K CLAV 875/125MG TABLET. PO SCH (09:30)
[2016-10-14] MEDS: METOPROLOL TART IMMED RELEASE 25 MG TABLET PO SCH (09:30)
--- NOTE | 2016-10-14 09:42 | PDOC ---
PULMONARY PROGRESS NOTES Subjective NO RESP DISTRESS Vitals Vital Signs Date Time Temp Pulse Resp B/P Pulse Ox O2 Delivery O2 Flow Rate FiO2 10/14/16 09:30 70 110/56 10/14/16 07:46 97 Room Air 10/14/16 07:00 97.6 18 97.6 10/13/16 15:00 2.0 General: Alert, Confused HEENT: Other (nc at perrl nose clear) Lungs: Crackles Cardiovascular: S1, S2 Abdomen: Soft, Non-tender Neuro Exam: Alert Extremities: No Edema Skin: Warm Medications Active Scripts Medications Dose Route/Sig Days Date Category Levaquin (Levofloxacin) 500 Mg Tablet 1 Tab PO DAILY 09/22/16 Rx Aricept (Donepezil Hcl) 10 Mg Tablet 1 Tab PO QHS 05/19/16 Reported Cozaar (Losartan Potassium) 100 Mg Tablet 100 Mg PO DAILY 05/19/16 Reported Namenda Xr (Memantine Hcl) 28 Mg Cap.spr.24 28 Mg PO DAILY 05/19/16 Reported Norvasc (Amlodipine Besylate) 5 Mg Tablet 1 Tab PO DAILY 05/19/16 Reported Lovastatin 40 Mg Tablet 1 Tab PO DAILY 05/19/16 Reported Acetaminophen 500 Mg Tablet 1 Tab PO QID 05/19/16 Reported Duoneb 0.5-3(2.5) Mg/3 Ml (Albuterol/Ipratropium) 3 Ml Ampul.neb 3 Ml NEB QID 05/19/16 Reported Seroquel (Quetiapine Fumarate) 25 Mg Tablet 1 Tab PO QHS PRN 05/19/16 Reported Aspirin 81 Mg Tab.chew 1 Tab PO DAILY 05/19/16 Reported Centrum Silver Tablet (Multivits-Min/Fa/Lycopene/Lut) 1 Each Tablet 1 Each PO DAILY 05/19/[address] of chest reviewed. 1. Abnormal material in the left lower lobe bronchus probably due to inflammatory debris, although a neoplastic etiology cannot be excluded. There is associated bronchiectasis and apparent mucus plugging in the left lower lobe. Chronic infection or allergic aspergillosis are possibilities. 2. 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 Impression . 1. Abnormal CT of the chest revealing left lower lobe debris, suspect mucous plugging. The patient has never smoked. There has been no history given of hemoptysis. 2. Possible aspiration pneumonia. 3. Metabolic toxic encephalopathy. 4. Severe Alzheimer's dementia. 5. Hyponatremia. 6. Chronic kidney disease. Plan . D/W DR SCHERER D/GINA RICHARDS MD Oct 14, 2016 09:42
--- NOTE | 2016-10-14 10:27 | PDOC ---
Objective: Objective: Possible DC today. Pat (palliative care) in room talking w/ family, pt. Family says eating some. Vital Signs: Vital Signs Date Time Temp Pulse Resp B/P Pulse Ox O2 Delivery O2 Flow Rate FiO2 10/14/16 09:30 70 110/56 10/14/16 08:30 Room Air 10/14/16 07:46 97 10/14/16 07:00 97.6 18 97.6 10/13/16 15:00 2.0 PE: GEN: NAD, sitting up in bed NEURO/PSYCH: A & O A/P: Elevated lipase - resolved -no signs of pancreatitis, unremarkable pancreas on CT A/P w/o contrast ?aspiration pneumonia, encephalopathy -ASSESSOR saw, on dysphagia diet -- DC today. Follow-up w/ GI PRN. DIO HANSON Oct 14, 2016 10:27
--- NOTE | 2016-10-14 10:37 | PDOC2 ---
PALLIATIVE CARE Palliative Care Note Palliative Care Spoke with patient's daughter/DPOA Rebeka and Ofelia at Hospice. Per daughter Rebeka they have been advised to go skilled at [facility] then hospice. Rebeka understands patient can not receive both assisted and hospice at the same time. Family would like to continue with Hospice when assisted completed. Outside the Hospital DNR/DNI will need physician signature and change of discharge orders to assisted. VINCENT EDUARDO Oct 14, 2016 10:37
[2016-10-14 11:00] VITALS: BP 123/68
== END 2016-10-14 16:48 | DRG 177 ==
LOC: ER 13:04 → 5 NORTH 16:35
PROVIDERS: ADMIT Internal Medicine; ATTEND Internal Medicine
DX: J69.0 Pneumonitis due to inhalation of food and vomit (principal); G92 Toxic encephalopathy; E44.1 Mild protein-calorie malnutrition; L97.329 Non-pressure chronic ulcer of left ankle with unspecified severity; N17.9 Acute kidney failure, unspecified; N39.0 Urinary tract infection, site not specified; E87.0 Hyperosmolality and hypernatremia; E03.9 Hypothyroidism, unspecified; E78.5 Hyperlipidemia, unspecified; F02.80 Dementia in other diseases classified elsewhere, unspecified severity, without behavioral disturbance, psychotic disturbance, mood disturbance, and anxiety; G30.9 Alzheimer's disease, unspecified; I12.9 Hypertensive chronic kidney disease with stage 1 through stage 4 chronic kidney disease, or unspecified chronic kidney disease; I48.0 Paroxysmal atrial fibrillation; Z96.641 Presence of right artificial hip joint; T68.XXXA Hypothermia, initial encounter; I73.9 Peripheral vascular disease, unspecified; I95.1 Orthostatic hypotension; L89.529 Pressure ulcer of left ankle, unspecified stage; N18.3 Chronic kidney disease, stage 3 (moderate); Z68.22 Body mass index [BMI] 22.0-22.9, adult; R13.12 Dysphagia, oropharyngeal phase; Z66 Do not resuscitate; Z79.82 Long term (current) use of aspirin; Z79.899 Other long term (current) drug therapy; Z90.710 Acquired absence of both cervix and uterus; Z95.0 Presence of cardiac pacemaker
CPT/HCPCS: 36415; 70450; 71010; 71250; 74176; 80048; 80061; 80076; 80202; 81001; 82150; 82553; 82947; 83690; 83735; 83880; 84443; 84484; 85007; 85027; 85379; 85610; 87086; 87641; 93005; 93306; 93925; 94640; 94760; J0690; J2543; J3370; J7030; J7040; J7050; J7620; 92610; 97110; 97116; 97530; 97535; 99285-25